=== PATIENT | male | born 1960 | race Caucasian/White ===

== ENCOUNTER 2019-01-22 15:45 | Inpatient (IN) ==
[~2019-01-22 15:45] MED LIST: THIAMINE 100 MG in NS 50 ML IV SCH
[2019-01-22] MEDS ORDERED: NS 1,000 ML IV ONE ×2 (16:14→18:14)
[2019-01-22] MEDS ORDERED: ROCEPHIN 1 GM in NS 50 ML IV ONE (16:15)
[2019-01-22 16:37] LABS: BASO# 0.09 X1000 (0.0-0.2); EOS# 0.22 X1000 (0.0-0.7); EOS% 2.5 % (0.0-10.0); HEMATOCRIT 44.6 % (42.0-52.0); HEMOGLOBIN 15.7 g/dL (14.0-18.0); IMM GRAN# 0.05 X1000 (0.0-0.04); IMM GRAN% 0.6 % (0.0-0.5); LYMPH# 1.91 X1000 (1.2-3.4); LYMPH% 21.5 % (20.5-51.1); MCH 33.4 PG (27-31); MCHC 35.2 g/dL (33-37); MCV 94.9 FL (81-99); MONO% 7.9 % (1.7-9.3); NEUT% 66.5 % (42.2-75.2); PLT 438 X1000 (130-400); RDW 13.4 % (11.5-14.5); WBC 8.87 X1000 (4.8-10.8)
--- NOTE | 2019-01-22 16:46 | PROVIDER DOCUMENTATION ---
HPI-Respiratory General - General Chief Complaint: Near Syncope Stated Complaint: SPITTING UP BLOOD Time Seen by Provider: 01/22/19 16:03 Allergies/Adverse Reactions: Patient Allergies Allergy/AdvReac Type Severity Reaction Status Date / Time No Known Allergies Allergy Verified 04/12/16 09:09 Home Medications: Home Medication List Medication Instructions Recorded Confirmed Last Taken Type Acetaminophen/Diphenhydramine 1 each PO Q6-8H PRN PRN #30 tablet 04/12/16 Unknown Rx [Percogesic 325-12.5 mg Tablet] Sulfamethoxazole/Trimethoprim 1 each PO BID #10 tablet 04/12/16 Unknown Rx [Bactrim Ds Tablet] - History of Present Illness-Resp Nature of Presenting Problem: patient is poor historian: 58 y.o. male report cough associated with blood started yesterday, sob for longtime, denies chest pain. he said he has terminal illness not sure what. denies abdominal pain. report alcohol daily. denies smoking or drug use. Hx of GI bleed per record review and patient confirm. Review of Systems - Adult - REVIEW OF SYSTEMS - ADULT Constitutional: reports: no symptoms reported Eyes: reports: no symptoms reported Cardiovascular: reports: see HPI Respiratory: reports: see HPI Gastrointestinal: reports: no symptoms reported Genitourinary: reports: no symptoms reported Musculoskeletal: reports: no symptoms reported Past History - Adult - PAST MEDICAL HISTORY-ADULT Review of Records: reports: Old Records Reviewed, Nursing Assessment Review Major Childhood Illnesses: reports: denies history Cardiovascular: reports: denies history Respiratory: reports: lung disease Gastrointestinal: reports: GERD, GI bleed, other (ischemic bowel induced by foreign body ) Genitourinary: reports: denies history Musculoskeletal: reports: denies history Neurological: reports: denies history Endocrine/Immune: reports: denies history Other Conditions: reports: denies history - PRIOR SURGERIES/PROCEDURES Surgical/Procedure History: reports: colonoscopy, tonsillectomy, orthopedic (extremity) (TKA) - IMMUNIZATION STATUS Childhood Immunizations: See Nurse Assessment Flu Vaccine: See Nurse Assessment - FAMILY HISTORY Family History: reviewed, not pertinent Physical Exam-General - CONSTITUTIONAL General Appearance: alert, mild distress - EYES Eyes: PERRL/EOMI - HEAD, EARS, NOSE, MOUTH & THROAT HENMT: normocephalic/atraumatic, moist mucous membranes - NECK Neck: non-tender, full range of motion, supple - RESPIRATORY Respiratory: lungs clear, accessory muscle use, other (Tachypnea). negative: crackles, rales, rhonchi - CARDIOVASCULAR Cardiovascular: normal peripheral pulses, regular rate, rhythm, no edema - GASTROINTESTINAL (ABDOMEN) Abdominal Exam: normal bowel sounds, non tender, soft - NEUROLOGIC Neurologic: grossly normal Progress - PLAN OF CARE/RESULTS Progress/Plan/Lab Results: Vital Signs - 8 hr 01/22/19 17:16 01/22/19 17:31 01/22/19 18:16 Pulse Rate 109 H 101 H 110 H Respiratory Rate 20 23 29 H Blood Pressure 142/88 137/80 141/84 O2 Sat by Pulse Oximetry 93 L 93 L 86 L 01/22/19 18:17 01/22/19 18:31 01/22/19 18:46 Pulse Rate 109 H 104 H 110 H Respiratory Rate 16 24 24 Blood Pressure 144/84 147/88 O2 Sat by Pulse Oximetry 93 L 93 L 93 L 01/22/19 19:01 01/22/19 19:31 01/22/19 19:46 Pulse Rate 108 H 106 H 107 H Respiratory Rate 21 26 H 20 Blood Pressure 142/88 141/112 136/87 O2 Sat by Pulse Oximetry 93 L 93 L 91 L 01/22/19 19:50 01/22/19 20:00 01/22/19 20:01 Pulse Rate 105 H 106 H 104 H Respiratory Rate 23 28 H 28 H Blood Pressure 140/96 O2 Sat by Pulse Oximetry 92 L 92 L 92 L 01/22/19 20:10 01/22/19 20:16 01/22/19 20:20 Pulse Rate 106 H 106 H 108 H Respiratory Rate 22 24 24 Blood Pressure 141/94 O2 Sat by Pulse Oximetry 91 L 93 L 91 L 01/22/19 20:30 01/22/19 20:32 01/22/19 20:40 Pulse Rate 106 H 107 H 111 H Respiratory Rate 21 21 22 Blood Pressure 145/94 O2 Sat by Pulse Oximetry 90 L 90 L 90 L 01/22/19 20:46 01/22/19 20:50 01/22/19 21:00 Pulse Rate 108 H 108 H 108 H Respiratory Rate 29 H 27 H 26 H Blood Pressure 139/84 O2 Sat by Pulse Oximetry 92 L 90 L 91 L 01/22/19 21:01 01/22/19 21:10 01/22/19 21:16 Pulse Rate 108 H 103 H 104 H Respiratory Rate 29 H 27 H 27 H Blood Pressure 141/88 149/89 O2 Sat by Pulse Oximetry 90 L 92 L 91 L 01/22/19 21:20 01/22/19 21:30 01/22/19 21:31 Pulse Rate 108 H 106 H 103 H Respiratory Rate 27 H 27 H 21 Blood Pressure 140/92 O2 Sat by Pulse Oximetry 90 L 91 L 92 L 01/22/19 21:40 01/22/19 21:46 01/22/19 21:50 Pulse Rate 106 H 102 H 109 H Respiratory Rate 27 H 26 H 26 H Blood Pressure 143/95 O2 Sat by Pulse Oximetry 90 L 92 L 91 L 01/22/19 22:00 01/22/19 22:01 01/22/19 22:02 Pulse Rate 109 H 108 H 108 H Respiratory Rate 24 28 H 28 H Blood Pressure 149/91 O2 Sat by Pulse Oximetry 90 L 91 L 91 L 01/22/19 22:10 01/22/19 22:16 01/22/19 22:20 Pulse Rate 88 105 H 105 H Respiratory Rate 16 23 26 H Blood Pressure 148/89 O2 Sat by Pulse Oximetry 90 L 91 L 91 L 01/22/19 22:30 01/22/19 22:31 01/22/19 22:40 Pulse Rate 107 H 108 H 105 H Respiratory Rate 33 H 29 H 22 Blood Pressure 149/90 O2 Sat by Pulse Oximetry 90 L 91 L 90 L Laboratory Results - last 24 hr 01/22/19 01/22/19 01/22/19 16:13 16:13 16:13 WBC 8.87 RBC 4.70 Hgb 15.7 Hct 44.6 MCV 94.9 MCH 33.4 H MCHC 35.2 RDW Std Deviation 13.4 Plt Count 438 H MPV 9.0 Immature Gran % (Auto) 0.6 H Neut % (Auto) 66.5 Lymph % (Auto) 21.5 Tate % (Auto) 7.9 Eos % (Auto) 2.5 Baso % (Auto) 1.0 H Immature Gran # (Auto) 0.05 H Neut # (Auto) 5.90 Lymph # (Auto) 1.91 Tate # (Auto) 0.70 H Eos # (Auto) 0.22 Baso # (Auto) 0.09 PT INR PTT (Actin FS) D-Dimer, Quantitative 1.61 H Sodium 143 Potassium 4.2 Chloride 101 Carbon Dioxide 24 L Anion Gap 18 BUN 6 L Creatinine 0.7 Estimated GFR/1.73 m2 > 60 BUN/Creatinine Ratio 9 Glucose 98 Calculated Osmolality 283 Calcium 9.3 Magnesium Total Bilirubin 0.78 AST 52 H ALT 20 Alkaline Phosphatase 173 H Troponin T Total Protein 8.3 Albumin 4.4 Globulin 3.9 Albumin/Globulin Ratio 1.1 Plasma Lactate Urine Source Urine Color Urine Turbidity Urine pH Ur Specific [place] Urine Protein Ur Glucose (Stick) Ur Ketones (Stick) Urine Blood Urine Nitrite Urine Bilirubin Urobilinogen Dipstick Urine Leukocytes Urine WBC (Auto) Urine RBC (Auto) U Epithel Cells (Auto) Urine Bacteria (Auto) 01/22/19 01/22/19 01/22/19 16:13 16:13 16:13 WBC RBC Hgb Hct MCV MCH MCHC RDW Std Deviation Plt Count MPV Immature Gran % (Auto) Neut % (Auto) Lymph % (Auto) Tate % (Auto) Eos % (Auto) Baso % (Auto) Immature Gran # (Auto) Neut # (Auto) Lymph # (Auto) Tate # (Auto) Eos # (Auto) Baso # (Auto) PT 13.7 INR 0.97 PTT (Actin FS) 31.5 D-Dimer, Quantitative Sodium Potassium Chloride Carbon Dioxide Anion Gap BUN Creatinine Estimated GFR/1.73 m2 BUN/Creatinine Ratio Glucose Calculated Osmolality Calcium Magnesium 1.3 L Total Bilirubin AST ALT Alkaline Phosphatase Troponin T < 0.010 Total Protein Albumin Globulin Albumin/Globulin Ratio Plasma Lactate Urine Source Urine Color Urine Turbidity Urine pH Ur Specific [place] Urine Protein Ur Glucose (Stick) Ur Ketones (Stick) Urine Blood Urine Nitrite Urine Bilirubin Urobilinogen Dipstick Urine Leukocytes Urine WBC (Auto) Urine RBC (Auto) U Epithel Cells (Auto) Urine Bacteria (Auto) 01/22/19 01/22/19 01/22/19 16:32 19:24 19:28 WBC RBC Hgb Hct MCV MCH MCHC RDW Std Deviation Plt Count MPV Immature Gran % (Auto) Neut % (Auto) Lymph % (Auto) Tate % (Auto) Eos % (Auto) Baso % (Auto) Immature Gran # (Auto) Neut # (Auto) Lymph # (Auto) Tate # (Auto) Eos # (Auto) Baso # (Auto) PT INR PTT (Actin FS) D-Dimer, Quantitative Sodium Potassium Chloride Carbon Dioxide Anion Gap BUN Creatinine Estimated GFR/1.73 m2 BUN/Creatinine Ratio Glucose Calculated Osmolality Calcium Magnesium Total Bilirubin AST ALT Alkaline Phosphatase Troponin T Total Protein Albumin Globulin Albumin/Globulin Ratio Plasma Lactate 3.7 H 3.3 H Urine Source CLEAN CATCH Urine Color YELLOW Urine Turbidity CLEAR Urine pH 6.5 Ur Specific [place] 1.039 Urine Protein NEGATIVE Ur Glucose (Stick) NEGATIVE Ur Ketones (Stick) NEGATIVE Urine Blood NEGATIVE Urine Nitrite NEGATIVE Urine Bilirubin NEGATIVE Urobilinogen Dipstick NORMAL Urine Leukocytes NEGATIVE Urine WBC (Auto) <10 Urine RBC (Auto) <10 U Epithel Cells (Auto) <10 Urine Bacteria (Auto) NEGATIVE 01/22/19 22:30 WBC RBC Hgb Hct MCV MCH MCHC RDW Std Deviation Plt Count MPV Immature Gran % (Auto) Neut % (Auto) Lymph % (Auto) Tate % (Auto) Eos % (Auto) Baso % (Auto) Immature Gran # (Auto) Neut # (Auto) Lymph # (Auto) Tate # (Auto) Eos # (Auto) Baso # (Auto) PT INR PTT (Actin FS) D-Dimer, Quantitative Sodium Potassium Chloride Carbon Dioxide Anion Gap BUN Creatinine Estimated GFR/1.73 m2 BUN/Creatinine Ratio Glucose Calculated Osmolality Calcium Magnesium Total Bilirubin AST ALT Alkaline Phosphatase Troponin T Total Protein Albumin Globulin Albumin/Globulin Ratio Plasma Lactate 2.3 H Urine Source Urine Color Urine Turbidity Urine pH Ur Specific [place] Urine Protein Ur Glucose (Stick) Ur Ketones (Stick) Urine Blood Urine Nitrite Urine Bilirubin Urobilinogen Dipstick Urine Leukocytes Urine WBC (Auto) Urine RBC (Auto) U Epithel Cells (Auto) Urine Bacteria (Auto) Orders Category Date Time Status Admit [facility] Routine AdmDCTranf 01/22/19 22:07 Active Activity - Up with Assistance ORDERED Care 01/22/19 22:07 Active Cardiac Monitoring DIRECTED Care 01/22/19 18:32 Completed Currently Rec Mechanical Proph [QM] ROUTINE Care 01/22/19 22:07 Active Intake and Output-Strict ORDERED Care 01/22/19 22:07 Active Vital Signs Order Q 8-HR ASSESS Care 01/22/19 22:07 Active Z-Document. for Tele Applied ORDERED Care 01/22/19 22:07 Completed Regular Diet Diet 01/22/19 22:07 Active CTA [CT ANGIOGRM PULMONARY ARTERIES] [CT] Stat Exams 01/22/19 16:15 Completed BASIC METABOLIC PANEL [CHEM] Routine Lab 01/23/19 06:00 Ordered BLOOD CULTURE [BLDCUL] Stat Lab 01/22/19 16:25 Results CBC WITH DIFF [HEME] Routine Lab 01/23/19 06:00 Ordered CBC WITH ELECTRONIC DIFF [HEME] Stat Lab 01/22/19 16:13 Completed COMPREHENSIVE METABOLIC PANEL [CHEM] Stat Lab 01/22/19 16:13 Completed D-DIMER [COAG] Stat Lab 01/22/19 16:13 Completed LACTATE, PLASMA [CHEM] Lab 01/22/19 19:24 Completed LACTATE, PLASMA [CHEM] Lab 01/22/19 22:30 Completed LACTATE, PLASMA [CHEM] Stat Lab 01/22/19 16:32 Completed MAGNESIUM [CHEM] Stat Lab 01/22/19 16:13 Completed PHOSPHORUS [CHEM] Routine Lab 01/23/19 06:00 Ordered PROTIME WITH INR [COAG] Stat Lab 01/22/19 16:13 Completed PTT [COAG] Stat Lab 01/22/19 16:13 Completed TROPONIN T Stat Lab 01/22/19 16:13 Completed TSH Routine Lab 01/23/19 06:00 Ordered URINALYSIS W/POSS RFLX CULT [URINALYSIS] Stat Lab 01/22/19 19:28 Completed 0.9% Sodium Chloride Inj [Ns] 1,000 ml Med 01/22/19 18:14 Discontinued .ROUTE As directed 0.9% Sodium Chloride Inj [Ns] 1,000 ml Med 01/22/19 22:07 Active IV 150 mls/hr 0.9% Sodium Chloride Inj [Ns] 1,000 ml Med 01/22/19 16:14 Discontinued IV 999 mls/hr 0.9% Sodium Chloride Inj [Ns] 1,000 ml Med 01/22/19 18:14 Discontinued IV 999 mls/hr Acetaminophen [Tylenol] Med 01/22/19 22:07 Active 650 mg PO Q6H PRN PRN Albuterol 2.5MG/Ipratrop 0.5MG [Duoneb (A & A)] Med 01/22/19 22:07 Active 3 ml INH RTQ6H Arformoterol Neb [Brovana Neb] Med 01/22/19 22:07 Active 15 microgm INH RTBID Azithromycin 500 mg/Ns [Zithromax 500 mg/Ns] Med 01/22/19 22:07 Active 500 mg in 250 ml IV Q24H Benzonatate [Tessalon] Med 01/23/19 09:00 Active 200 mg PO TID CefTRIAXONE [Rocephin] 1 gm Med 01/22/19 16:15 Discontinued 0.9% Sodium Chloride Inj [Ns] 50 ml IV NOW CefTRIAXONE [Rocephin] 1 gm Med 01/23/19 16:00 Active 0.9% Sodium Chloride Inj [Ns] 50 ml IV Q24H Chlordiazepoxide [Librium] Med 01/23/19 09:00 Active 25 mg PO TID Lorazepam [Ativan] Med 01/22/19 22:07 Active 1 mg IV Q2H PRN PRN Methylprednisolone Sod Succ [Solu-Medrol] Med 01/22/19 22:07 Active 40 mg IV Q8H Ondansetron [Zofran] Med 01/22/19 22:07 Active 4 mg IV Q4H PRN PRN Pantoprazole [Protonix] Med 01/22/19 22:07 Active 40 mg IV Q24H Sodium Chloride 0.9% Med 01/22/19 22:07 Discontinued 10 ml INJ NOW ONE Thiamine 100 mg Med 01/22/19 09:00 Active 0.9% Sodium Chloride Inj [Ns] 50 ml IV DAILY Thiamine 100 mg Med 01/22/19 23:00 Discontinued 0.9% Sodium Chloride Inj [Ns] 50 ml IV NOW Aerosol Treatments Routine Oth 01/22/19 22:07 Completed Aerosol Treatments Stat Oth 01/22/19 22:07 Completed Oxygen Device Stat Oth 01/22/19 18:32 Completed Telemetry [OM.EQ] Routine Oth 01/22/19 22:07 Active EKG [EKG] Stat Ther 01/22/19 16:17 Ordered Echo Spec/Color Dop W/O Contra Routine Ther 01/23/19 11:00 Ordered Transfer/Admit Order [TRANSFER] Routine Transfer 01/22/19 19:38 Completed Result Diagrams: 01/22/19 16:13 01/22/19 16:13 - EKG 1 Time of EKG reading by physician:: 16:00 EKG Read and Signed by:: Barbara Busch EKG Interpretation (*Must complete 3 of following elements*): Abnormal Rate: 104 Rhythm: sinus tachycardia [place]: normal [place] Interval: normal Comments: otherwise normal ECG - CONSULTS/PCP/HOSPITALIST Notification #1 *Consult/PCP/Hospitalist*: Dr. Turcios Time Discussed: 19:18 Consult Disposition: Admit (Hx, PE and patient care discussed. accepted.) Departure - Departure Date of Disposition Decision: 01/22/19 Time of Disposition Decision: 19:17 DIAGNOSIS: Hemoptysis, Respiratory distress Sepsis Qualifiers: Sepsis type: sepsis due to unspecified organism Qualified Code(s): A41.9 - Sepsis, unspecified organism Disposition: ADMITTED INPATIENT Certified Medical Emergency: Emergent Condition: Stable - Critical Care Note This patient required my direct & personal management of CC.: No Attestation - Physician/ CHARLETTE Attestation Patient care was provided by Advanced Practice Provider:: No The physician spent face to face time with patient:: Yes Advanced Practice Provider documentation review:: Supervising physician onsite and consulted in the evaluation and care of this patient. The physician did have a face to face encounter with the patient.
[2019-01-22 17:02] LABS: AGAP 18; ALB/GLOB RATIO 1.1; ALBUMIN 4.4 g/dL (3.5-5.0); ALKALINE PHOSPHATASE 173 U/L (32-122); BUN 6 mg/dL (8-22); CALCIUM 9.3 mg/dL (8.8-10.2); CHLORIDE 101 mmol/L (98-107); COSMO 283; CREATININE 0.7 mg/dL (0.7-1.2); ESTIMATED GFR > 60; GLUCOSE 98 mg/dL (70-104); GOT 52 U/L (10-34); GPT 20 U/L (10-44); POTASSIUM 4.2 mmol/L (3.5-5.1); SODIUM 143 mmol/L (136-145); TCO2 24 mmol/L (25-35); TOTAL BILIRUBIN 0.78 mg/dL (0.20-1.00); TOTAL PROTEIN 8.3 g/dL (6.3-8.3)
[2019-01-22] MEDS ORDERED: NS 1,000 ML ONE (18:14)
--- NOTE | 2019-01-22 18:26 | Diag Imaging Result Doc PS360 ---
EXAM: CT ANGIOGRM PULMONARY ARTERIES HISTORY: dyspnea, tachycardia, tachypnea, hemoptysis TECHNIQUE: CT chest with intravenous contrast. Pulmonary arterial protocol with MIP images. COMPARISON: 09/28/2015 FINDINGS: There is severe emphysema. There are prominent bilateral increased interstitial markings consistent with fibrosis. There are enlarged mediastinal nodes with mildly prominent hilar lymph nodes. No pleural effusions. No cardiomegaly. No thoracic aortic aneurysm or dissection. Normal opacification of the pulmonary arteries and their branches. Possible 1.5 cm right apical nodule. IMPRESSION: 1.No pulmonary emboli 2.Interval increase in the size of the large mediastinal lymph nodes 3.Severe emphysema 4.Worsening fibrosis. Cannot exclude underlying infiltrates. 5.There is scarring in the right apex. The nodular appearance likely represents scarring as well. This exam was performed using automated exposure control, adjustment of mA or kV according to patient size, and/or use of iterative reconstruction technique. Electronically signed by Juan Alberto Antonio 01/22/2019 6:23 PM
[2019-01-22 18:43] LABS: INR 0.97; PROTIME 13.7 Seconds (11.0-16.0)
[2019-01-22 18:44] LABS: PTT 31.5 Seconds (22.3-41.8)
[2019-01-22 19:50] LABS: URINE SOURCE CLEAN CATCH
[2019-01-22 19:56] LABS: BILIRUBIN URINE NEGATIVE (NEGATIVE); BLOOD URINE NEGATIVE (NEGATIVE); COLOR YELLOW; GLUCOSE URINE NEGATIVE (NEGATIVE); KETONE URINE NEGATIVE (NEGATIVE); LEUKOCYTES URINE NEGATIVE (NEGATIVE); NITRITE URINE NEGATIVE (NEGATIVE); PH URINE 6.5; PROTEIN URINE NEGATIVE (NEGATIVE); SP GRAVITY URINE 1.039; TURBIDITY URINE CLEAR (CLEAR); UROBILINOGEN URINE NORMAL (NORMAL)
[2019-01-22 20:06] LABS: UR EPITHELIAL CELLS <10 /HPF (<10); URINE BACTERIA NEGATIVE /HPF; URINE RBC <10 /HPF (<10); URINE WBC <10 /HPF (<10)
--- NOTE | 2019-01-22 20:56 | HISTORY AND PHYSICAL ---
PRIMARY CARE PHYSICIAN: None. REASON FOR ADMISSION: Two-day history of acute on chronic shortness of breath and chest pain. HISTORY OF PRESENT ILLNESS: Mr. Dina Appiah is a 58-year-old male with a past medical history of COPD. He also has a history of alcohol abuse and chronic daily headache. He states he has a longstanding history of chronic dyspnea with exertion and says that over the last 2 days the dyspnea has gotten profoundly worse. Before, he could go 50 feet before he got short of breath, but now he says that he can barely go 5 feet without becoming profoundly short of breath. He admits to having a cough that is productive that is tinged with blood. Denies any night sweats or weight loss and states that he has had occasional chills but no fever. He denies any orthopnea or PND. He says he has been having some retrosternal chest pain radiating to the precordium, which is pleuritic in nature. It is intermittent with no specific aggravating or relieving factors otherwise. No leg swelling. No abdominal swelling. No extremity redness or pain. Sometimes when he ambulates, he feels as if he is going to pass out, and he feels his heart racing. He denies any GI or complaints. No focal neurological complaints, although he says he has a dull constant headache, and he takes multiple Goody powders a day for this. REVIEW OF SYSTEMS: No polyuria or polydipsia. No heat intolerance. No rash. No arthralgias otherwise. A 12-system review was done, with positive findings per HPI. ALLERGIES: None. PAST SURGICAL HISTORY: He had a tonsillectomy, left knee surgery, and sinus surgery . MEDICATIONS: None. FAMILY HISTORY: Notable for COPD and diabetes but no heart disease. SOCIAL HISTORY: He drinks about half a bottle of vodka and does admit that occasionally he does get shakes but never had any seizures. He stopped smoking 15 years ago. No recreational drug use. Lives with his son. LAB WORK: A CT angiogram was done because of an elevated D-dimer, tachypnea, and hemoptysis, and it showed no pulmonary emboli. Interval increase in size of large mediastinal lymph nodes, severe emphysema, and worsening fibrosis, but cannot exclude infiltrates. White count 8000, hemoglobin and hematocrit 15 and 44, platelets 438. Normal differential. AST 51, ALT 20, alkaline phosphatase 173. Troponin negative. Lactate is 3.7. PT and PTT are normal. D-dimer 1.61. PHYSICAL EXAMINATION: VITAL SIGNS: Heart rate is 106, temperature 97.8, respirations 26, blood pressure 141/112, 93% on room air. GENERAL: He is a middle-aged man who appears slightly older than stated age. He is alert and oriented to person, place and time with a normal mood and affect. HEENT: Head is normocephalic, atraumatic. Eyes PERRL, EOMI. He is anicteric, not pale. ENT: Oropharynx exam is grossly normal. NECK: Supple. LYMPHATICS: No cervical or supraclavicular lymph nodes. No thyromegaly. No bruits. No JVD. CHEST: The patient has bibasilar Velcro crepitations. No wheezes but decreased air entry in both lung williamson. CARDIOVASCULAR: First and second heart sounds heard. No gallops, murmurs or rubs. Rhythm is regular. ABDOMEN: Full and soft. No tenderness or megaly. Bowel sounds normal. RECTAL EXAM: Not done at this time. EXTREMITIES: The patient has good distal pulse volumes which are symmetrical and regular. No edema, clubbing or peripheral cyanosis. NEUROLOGIC: No focal deficits. SKIN: Intact with no breakdown, lesions or erythema. MUSCULOSKELETAL: Grossly normal. ASSESSMENT: 1. Chronic obstructive pulmonary disease exacerbation. 2. Probably pneumonia with probable sepsis. 3. Alcohol abuse. 4. Mediastinal lymphadenopathy, query significance. PLAN: 1. The patient will be started on steroids and short- and long-acting bronchodilators to address chronic obstructive pulmonary disease exacerbation. 2. The patient will also be empirically treated with Rocephin and Zithromax for presumed community- acquired pneumonia. 3. The patient will be started on low-dose Librium and Ativan for possible alcohol withdrawal. Will start the patient on IV thiamine to prevent Wernicke encephalopathy. Check electrolytes in the morning to include phosphorus and magnesium and correct as deemed necessary. 4. IV Protonix to prevent possible peptic ulcer disease due to the fact that the patient consumes lots of Goody powders, which be responsible for the fact that he has some degree of hemoptysis when he coughs. 5. I personally would not be surprised if the patient's lactate is elevated, not because he has sepsis, but it is possible that he has chronic hypoxia from his underlying pulmonary fibrosis and COPD, and this could probably shift his metabolism more to glycolysis as opposed to via the Collin cycle. cc: Chris Turcios MD
[2019-01-22] MEDS: BROVANA NEB INH SCH (22:07)
[2019-01-22] MEDS ORDERED: SODIUM CHLORIDE 0.9% INJ ONE (22:07)
[2019-01-22] MEDS: DUONEB (A & A) INH SCH (22:07)
[2019-01-22] MEDS: NS 1,000 ML IV SCH (22:35)
[2019-01-22] MEDS: SOLU-MEDROL IV SCH (22:41)
[2019-01-22] MEDS: PROTONIX IV SCH (22:50)
[2019-01-22] MEDS: ZITHROMAX 500 MG/NS 500 MG/250 ML IVPB IV SCH (22:52)
[2019-01-22] MEDS ORDERED: THIAMINE 100 MG in NS 50 ML IV ONE (23:00)
[2019-01-23] MEDS: ZOFRAN IV PRN (00:07)
[2019-01-23] MEDS: NS 1,000 ML IV SCH (05:25)
[2019-01-23] MEDS: SOLU-MEDROL IV SCH ×3 (05:25→21:47)
[2019-01-23] MEDS: DUONEB (A & A) INH SCH ×4 (06:22→21:10)
[2019-01-23 06:35] LABS: BASO# 0.02 X1000 (0.0-0.2); BASO% 0.3 % (0.0-0.8); HEMATOCRIT 40.5 % (42.0-52.0); HEMOGLOBIN 14.1 g/dL (14.0-18.0); IMM GRAN# 0.03 X1000 (0.0-0.04); IMM GRAN% 0.4 % (0.0-0.5); LYMPH# 0.44 X1000 (1.2-3.4); LYMPH% 6.3 % (20.5-51.1); MCH 33.3 PG (27-31); MCHC 34.8 g/dL (33-37); MCV 95.5 FL (81-99); MONO# 0.06 X1000 (0.11-0.59); MONO% 0.9 % (1.7-9.3); MPV 9.5 FL (7.4-10.4); NEUT# 6.45 X1000 (1.4-6.5); NEUT% 92.1 % (42.2-75.2); PLT 330 X1000 (130-400); RBC 4.24 XMIL (4.7-6.1); RDW 12.8 % (11.5-14.5)
[2019-01-23 06:52] LABS: AGAP 15; BUN 7 mg/dL (8-22); CHLORIDE 102 mmol/L (98-107); COSMO 279; CREATININE 0.6 mg/dL (0.7-1.2); ESTIMATED GFR > 60; GLUCOSE 188 mg/dL (70-104); POTASSIUM 3.7 mmol/L (3.5-5.1); SODIUM 138 mmol/L (136-145); TCO2 21 mmol/L (25-35)
[2019-01-23 07:13] LABS: BANDS 1 % (0-1); LYMPHS 3 % (21-51); SEGS 96 % (42-75)
--- NOTE | 2019-01-23 07:35 | EKG Report ---
Test Performed on : 01/22/2019 4:00:08 PM Test Reason : CP Blood Pressure : / mmHG Vent. Rate : 104 BPM Atrial Rate : 104 BPM P-R Int : 192 ms QRS Dur : 076 ms QT Int : 346 ms P-R-T Axes : 043 042 027 degrees QTc Int : 454 ms Sinus tachycardia. Otherwise normal ECG When compared with ECG of 28-OCT-2014 06:15, No significant change was found Unconfirmed Result
[2019-01-23] MEDS: TESSALON PO SCH ×3 (08:54→21:47)
[2019-01-23] MEDS: LIBRIUM PO SCH ×3 (08:54→21:47)
[2019-01-23] MEDS: BROVANA NEB INH SCH ×2 (09:50→21:10)
[2019-01-23] MEDS: ROCEPHIN 1 GM in NS 50 ML IV SCH ×2 (14:09→15:17)
[2019-01-23] MEDS ORDERED: SODIUM CHLORIDE 0.9% 10 ML ONE (14:50)
--- NOTE | 2019-01-23 17:18 | ECHO REPORT ---
ORDER DATE: 01/23/2019 INTERPRETING PHYSICIAN: Cesar Renteria MD. INDICATION: A 58-year-old patient with chest pain, alcohol abuse, possible pneumonia. M-MODE MEASUREMENTS: Left ventricle end diastole: 4.9 cm. Left ventricle end systole: 2.1 cm. Posterior wall: 0.8 cm. Interventricular septum: 0.8 cm. Left atrium: 4.1 cm. Aortic root: 3.5 cm. SUMMARY OF 2-DIMENSIONAL IMAGIN. The left ventricular function is normal. Ejection fraction is estimated at 65%. There is no wall motion abnormality noted. The study is difficult. 2. The right-sided chambers appear to be mildly enlarged. 3. The tricuspid valve appears to be grossly normal with trace of regurgitation. Pulmonary pressure is estimated at 54 mmHg. 4. The mitral valve looks grossly normal. Color flow mapping indicates a mild degree of regurgitation. Pulsed wave Doppler of mitral inflow showed reversal of the E and A ratio, ratio of 0.63. The tissue Doppler of septal and lateral mitral annulus is suboptimally displayed. The E' velocity is about 6 cm, suggesting that there may be borderline impaired left ventricular relaxation. 5. The aortic valve has 3 cusps. They open normally. Color flow mapping unremarkable. 6. The pulmonic valve is grossly unremarkable. There is no evidence of pericardial effusion, masses, nor thrombus. Clinical correlation is recommended. cc: MD Chris Escobar MD
--- NOTE | 2019-01-23 18:17 | PROGRESS NOTE ---
DATE: 01/23/2019 INTERVAL HISTORY: Mr. Appiah was admitted for acute COPD exacerbation. He did not have any other acute events. SUBJECTIVE: He continues to have hemoptysis and shortness of breath. He tells me that he has not been using any home oxygen, that he was supposed to since he does not have money to buy it. He states that he quit smoking 10 years ago; however, it is suspicious. He does not provide good answers about his alcohol history, though. VITALS: Currently, vitals detect temperature of 97.9, pulse 95, respiratory 22, blood pressure 132/75. Saturating 93% on 3 L nasal cannula. PHYSICAL EXAMINATION: General: He does not appear in any acute distress. There is a tray with hemoptysis which he continues to expectorate and sputum culture has been ordered. The patient denies any chest pain. Echocardiogram has just been performed. The result is pending. Lungs: Air entry bilaterally equal. No wheeze or rhonchi. Diffuse crackles bilaterally. Cardiovascular: S1, S2 normal. Tachycardic. No murmur, rub or gallop. Abdomen: Soft, nontender. No lower extremity edema. LABS: Suggestive off no leukocytosis. Normal hemoglobin, hematocrit and platelet count. Normal kidney function. Hypophosphatemia and hypocalcemia. ASSESSMENT AND PLAN: 1. Acute chronic obstructive pulmonary disease exacerbation. 2. Acute on chronic hypoxic respiratory failure with noncompliance with home oxygen. 3. Hemoptysis. 4. About 60 pack-year smoking history, which he claims to have quit 10 years ago. 5. Enlarging mediastinal lymphadenopathy with a right apical lung mass suspicious for cancer. 6. Alcohol abuse. PLAN: 1. Continue albuterol ipratropium nebulization with intravenous methylprednisolone with intravenous ceftriaxone and intravenous azithromycin and follow up with blood culture and sputum culture results for acute COPD exacerbation. 2. Continue thiamine, chlordiazepoxide and as needed lorazepam for history of alcohol abuse to prevent alcohol withdrawal. 3. I will consult Pulmonology tomorrow since he does have about 1.2 cm right apical lung mass and very large mediastinal lymph node which in the setting of hemoptysis and longstanding smoking history is suspicious for lung cancer. I did not have any previous CT image, however there is a previous CT report in 2016 which did document about 8 mm area in right apical lobe. ADDENDUM: I did not get a chance to discuss the findings of a lung mass and lymph node to the patient since I did a personal review of images very late in the day. cc: Wes Rogel MD MTDMandi
[2019-01-23] MEDS: ZITHROMAX 500 MG/NS 500 MG/250 ML IVPB IV SCH (21:46)
[2019-01-23] MEDS: PROTONIX IV SCH (21:46)
[2019-01-23] MEDS: TYLENOL PO PRN (22:58)
[2019-01-23] MEDS: THIAMINE 100 MG in NS 50 ML IV SCH (23:56)
[2019-01-24] MEDS: DUONEB (A & A) INH SCH ×4 (03:15→21:20)
[2019-01-24] MEDS: SOLU-MEDROL IV SCH ×3 (05:30→21:22)
[2019-01-24] MEDS: ZOFRAN IV PRN (07:45)
[2019-01-24] MEDS: TYLENOL PO PRN ×3 (07:45→21:21)
[2019-01-24] MEDS: TESSALON PO SCH ×3 (08:36→18:29)
[2019-01-24] MEDS: K-PHOS PO SCH ×3 (08:36→18:28)
[2019-01-24] MEDS: TUMS PO SCH ×3 (08:38→18:30)
[2019-01-24] MEDS: LIBRIUM PO SCH ×3 (08:45→18:27)
[2019-01-24] MEDS ORDERED: BROVANA NEB ONE (09:28)
[2019-01-24] MEDS: BROVANA NEB INH SCH ×2 (09:29→21:20)
[2019-01-24] MEDS ORDERED: SODIUM CHLORIDE 0.9% 10 ML ONE (16:33)
--- NOTE | 2019-01-24 17:23 | PROGRESS NOTE ---
DATE: 01/24/2019 SUBJECTIVE: Today Mr. Appiah referred to be doing a little better. He still has significant shortness of breath. OBJECTIVE: Vitals: Blood pressure is 120/60, pulse of 106, respirations 20, temperature 97.2 degrees. The patient was saturating about 94% on nasal cannula. On general exam, Mr. Appiah is a 58-year-old male. He was in bed. Seems to be in mild respiratory distress. Mucosa is pink and moist. Anicteric. Acyanotic. Neck is supple. Chest: Air entry is bilaterally reduced. There is prolonged expiratory phase of respiration. There are also some fine end- inspiratory crackles bilateral. Cardiovascular: Regular rate and rhythm. No murmurs, no rubs, no gallops. Gastrointestinal: Abdomen is soft. Extremities: No pedal edema. There is positive clubbing. Central Nervous System: Patient is awake, alert, and oriented. DIAGNOSTIC STUDIES: None for today. The patient's lactate plasma is 3.9. Echocardiogram shows an ejection fraction of 65%. ASSESSMENT: 1. Acute on chronic hypoxemic respiratory failure. 2. Severe chronic obstructive pulmonary disease with exacerbation. We will continue with the current standard of care, including steroids, antibiotics, and bronchodilation therapy. 3. Enlarged mediastinal lymphadenopathy in patient with a [id number] history, chronic obstructive pulmonary disease associated with clubbing. All concerning for malignancy. We will wait for Pulmonary Medicine to evaluate. 4. Alcohol abuse. Patient has been counseled. He is currently on protocol for possible withdrawal. 5. Osteoarthritis. We will add Celebrex to his medications. cc: Harrison Francois MD [facility]
[2019-01-24] MEDS: ROCEPHIN 1 GM in NS 50 ML IV SCH (18:31)
[2019-01-24] MEDS: CELEBREX PO SCH (18:45)
[2019-01-24] MEDS: ZITHROMAX 500 MG/NS 500 MG/250 ML IVPB IV SCH (21:20)
[2019-01-24] MEDS: PROTONIX IV SCH (21:22)
--- NOTE | 2019-01-24 23:18 | CONSULTATION ---
DATE OF CONSULTATION: 01/24/2019 REQUESTING PHYSICIAN: Dr. Wes Rogel. REASON FOR CONSULTATION: Right apical nodule, hemoptysis. HISTORY OF PRESENT ILLNESS: This is a 58-year-old male with a medical history of COPD, degenerative joint disease, chronic pain, chronic headache, and alcohol abuse. He presented to the ER on 01/22/2019 with hemoptysis. Initial workup in the ER revealed COPD exacerbation, probable pneumonia with probable sepsis, and significant mediastinal lymphadenopathy. He has been admitted to the medical floor for further evaluation and management. At the time of my examination, patient is lying in bed comfortably with no acute distress noted. He coughs occasionally with simon sputum tinged with very little dark red blood. He reports shortness of breath over 2 to 3 years. He reports severe arthritis in several joints, and he has had surgery for his left knee due to arthritis. He reports he was prescribed with home oxygen 3 years ago but he cannot afford it. He has chest pain, productive cough, daily headache, but no nausea, fever, chills, headache, unintentional weight change, palpitation, bowel habit change, or urination change. PAST MEDICAL/SURGICAL HISTORY: 1. COPD. Required home oxygen but patient cannot afford it. 2. Degenerative joint disease. 3. Chronic pain. 4. Chronic headache. 5. Alcohol abuse. 6. Tonsillectomy. 7. Arthritis. 8. Left knee surgery. 9. Sinus surgery. SOCIAL HISTORY: He is a heavy former smoker, he quit smoking 15 years ago. He used to smoke 2 packs per day for 30 years. He drinks about half a bottle of vodka occasionally. He has no history of illicit drug use. FAMILY HISTORY: Father had COPD and from a blood clot. One of his brothers has COPD and blood clot. Mother of old age. He reports no family history of sarcoidosis. ALLERGIES: No known drug allergies. REVIEW OF SYSTEMS: A 10-point review of systems was conducted and the pertinent is listed within the HPI, otherwise noncontributory. PHYSICAL EXAMINATION: Vital Signs: Temperature 98.1 degrees, blood pressure 106/62, pulse 104, respiratory rate 20, oxygen saturation 91% on nasal cannula at 2 L. General: chronically ill appearing, malnourished; in no acute distress. Respiratory: even and unlabored; symmetrical excursion; auscultation reveals early inspiratory crackles bilaterally. Cardiovascular: regular rate and rhythm. Gastrointestinal: normoactive bowel sounds in all 4 quadrants; nontender, nondistended. Extremities: no pedal edema, no cyanosis, no clubbing. Neurologic: A/Ox3; speech fluent; follow commands. LAB DATA: No lab today. PERTINENT IMAGING DATA: CT angiogram, pulmonary arterials on 01/22/2019 revealed no pulmonary emboli. Interval increase in the size of the large mediastinal lymph nodes, severe emphysema, worsening fibrosis, cannot exclude underlying infiltrates. There is scarring in the right apex. The nodular appearance likely represents scarring as well. ASSESSMENT: This is a 58-year-old male with a medical history of chronic obstructive pulmonary disease, degenerative joint disease, chronic pain, chronic headache, alcohol abuse, and arthritis. He has been admitted to the medical floor with chronic obstructive pulmonary disease exacerbation, probable pneumonia with probable sepsis, alcohol abuse, and mediastinal lymphadenopathy. 1. Acute on chronic hypoxemic respiratory failure. 2. Possible 1.5 right apical nodule with lymphadenopathy. 3. Hemoptysis. very little dark red blood, but noticeable. 4. Chronic obstructive pulmonary disease exacerbation. PLAN: 1. Continue supplemental oxygen. 2. Continue antibiotics, steroid, and bronchodilators. 3. Follow up with blood culture and sputum culture. 4. Outpatient PET scan. 5. Continue GI and DVT prophylaxis. 6. Further recommendations pending hospital course. I discussed plan with patient. Patient showed understanding and agreement. All questions are answered. Thank you for the courtesy of this consult. Dictated by ZEINA Mead for Dalia Martinez MD cc: ZEINA Mead MD [facility]
[2019-01-25] MEDS: THIAMINE 100 MG in NS 50 ML IV SCH (00:19)
[2019-01-25] MEDS: DUONEB (A & A) INH SCH ×4 (03:20→21:46)
[2019-01-25] MEDS: SOLU-MEDROL IV SCH ×3 (07:52→21:20)
[2019-01-25] MEDS: TESSALON PO SCH ×3 (08:28→21:21)
[2019-01-25] MEDS: LIBRIUM PO SCH ×3 (08:28→21:21)
[2019-01-25] MEDS: TUMS PO SCH ×3 (08:28→21:21)
[2019-01-25] MEDS: CELEBREX PO SCH (08:28)
[2019-01-25] MEDS: K-PHOS PO SCH ×3 (08:28→21:22)
[2019-01-25] MEDS: TYLENOL PO PRN ×2 (08:30→21:21)
[2019-01-25 10:08] LABS: HEMATOCRIT 39.8 % (42.0-52.0); HEMOGLOBIN 13.4 g/dL (14.0-18.0); MCH 33.3 PG (27-31); MCHC 33.7 g/dL (33-37); MCV 98.8 FL (81-99); MPV 9.4 FL (7.4-10.4); RBC 4.03 XMIL (4.7-6.1); RDW 13.5 % (11.5-14.5); WBC 17.05 X1000 (4.8-10.8)
[2019-01-25 10:26] LABS: AGAP 10; BUN 12 mg/dL (8-22); CALCIUM 8.3 mg/dL (8.8-10.2); CHLORIDE 107 mmol/L (98-107); COSMO 285; CREATININE 0.7 mg/dL (0.7-1.2); ESTIMATED GFR > 60; GLUCOSE 163 mg/dL (70-104); POTASSIUM 3.8 mmol/L (3.5-5.1); SODIUM 141 mmol/L (136-145); TCO2 24 mmol/L (25-35)
[2019-01-25] MEDS: BROVANA NEB INH SCH ×2 (10:52→21:46)
[2019-01-25] MEDS ORDERED: SODIUM CHLORIDE 0.9% 10 ML ONE (14:43)
[2019-01-25] MEDS: ROCEPHIN 1 GM in NS 50 ML IV SCH (16:01)
--- NOTE | 2019-01-25 21:01 | PROGRESS NOTE ---
DATE: 01/25/2019 SUBJECTIVE: The patient states that he is still very short of breath with minimal exertion. He states that he can barely walk to the restroom without having to stop to catch his breath. OBJECTIVE: Vital Signs: Temperature 97.6 degrees, blood pressure 124/77, heart rate 101, respirations 18, O2 saturation 92% on 2 L nasal cannula. General: This is a chronically ill- appearing elderly male sitting up in bed in no acute distress. Heart: S1, S2 normal. Regular rate and rhythm. Lungs: Diminished breath sounds bilaterally. No wheezing. No rales. Abdomen: Positive bowel sounds. Soft, nontender, nondistended. Extremities: No edema, no cyanosis. Neurologic: The patient is alert and oriented x4. LABORATORY DATA: White blood cell count 17, hemoglobin 13, hematocrit 39, platelets 367,000, BUN 12, creatinine 0.7 glucose 163. Sodium 141, potassium 3.8. ASSESSMENT AND PLAN: 1. Acute on chronic hypoxemic respiratory failure. The patient has a chronic obstructive pulmonary disease exacerbation. We will continue to treat the underlying issue. 2. Chronic obstructive pulmonary disease exacerbation. Continue with IV steroids, bronchodilator therapy, supplemental oxygen and antibiotics. 3. Mediastinal lymphadenopathy. We will await further recommendations from the production support manager. 4. Tobacco dependence. The patient has been counseled about smoking cessation. 5. Alcohol abuse. Continue on Librium and p.r.n. Ativan. We will monitor for withdrawal. 6. Deep vein thrombosis prophylaxis. We will start the patient on Lovenox. cc: Marianne Blue MD
[2019-01-25] MEDS: PROTONIX IV SCH (21:20)
[2019-01-25] MEDS: ZITHROMAX 500 MG/NS 500 MG/250 ML IVPB IV SCH (21:25)
[2019-01-26] MEDS: THIAMINE 100 MG in NS 50 ML IV SCH (01:05)
[2019-01-26] MEDS: DUONEB (A & A) INH SCH ×4 (03:24→22:50)
[2019-01-26 05:59] LABS: ALLEN TEST YES; BE 1.1 mmoll (-3.0-3.0); BLOOD TYPE ARTERIAL; HCO3-(ACT) 25.7 mmoll (20.0-26.0); METHB 0.8 % (0.0-1.5); O2(CT) 16.6 mL/dL (15.0-23.0); O2HB 93.7 % (95.0-99.0); PCO2(98.6) 37 mmHg (35-45); PO2(98.6) 68 mmHg (60-100); SAMPLE BLOOD; SAO2 97.3 % (95.0-100.0); THB 12.6 g/dL (11.5-17.4); pH(98.6) 7.44 (7.35-7.45)
[2019-01-26 06:01] LABS: MODALITY CANNULA
[2019-01-26] MEDS: TYLENOL PO PRN ×3 (06:13→21:38)
[2019-01-26] MEDS: ZOFRAN IV PRN (06:13)
[2019-01-26] MEDS: SOLU-MEDROL IV SCH ×4 (06:14→21:40)
[2019-01-26 06:58] LABS: BASO# 0.01 X1000 (0.0-0.2); BASO% 0.1 % (0.0-0.8); HEMATOCRIT 38.3 % (42.0-52.0); HEMOGLOBIN 12.7 g/dL (14.0-18.0); IMM GRAN# 0.04 X1000 (0.0-0.04); IMM GRAN% 0.4 % (0.0-0.5); LYMPH# 0.56 X1000 (1.2-3.4); MCH 32.8 PG (27-31); MCHC 33.2 g/dL (33-37); MONO# 0.34 X1000 (0.11-0.59); MPV 9.5 FL (7.4-10.4); NEUT# 10.25 X1000 (1.4-6.5); NEUT% 91.5 % (42.2-75.2); PLT 370 X1000 (130-400); RBC 3.87 XMIL (4.7-6.1); RDW 13.6 % (11.5-14.5)
[2019-01-26 07:20] LABS: MAGNESIUM 1.4 mg/dL (1.5-2.7); PHOSPHORUS 3.5 mg/dL (2.7-4.5)
[2019-01-26 07:22] LABS: AGAP 11; ALBUMIN 3.2 g/dL (3.5-5.0); ALKALINE PHOSPHATASE 111 U/L (32-122); BUN 12 mg/dL (8-22); CHLORIDE 105 mmol/L (98-107); COSMO 291; CREATININE 0.7 mg/dL (0.7-1.2); ESTIMATED GFR > 60; GLUCOSE 212 mg/dL (70-104); GOT 64 U/L (10-34); GPT 35 U/L (10-44); SODIUM 143 mmol/L (136-145); TCO2 27 mmol/L (25-35); TOTAL BILIRUBIN 0.29 mg/dL (0.20-1.00); TOTAL PROTEIN 6.5 g/dL (6.3-8.3)
--- NOTE | 2019-01-26 07:49 | Diag Imaging Result Doc PS360 ---
EXAM: CHEST-PORTABLE 01/26/2019 HISTORY: copd TECHNIQUE: AP upright portable at 0720 COMMENT: There are coarse fibrotic interstitial opacities throughout both lungs. The inspiration is less optimal than on 04/12/2016, and considering this there has been very little change since that examination. The possibility of mild pulmonary edema superimposed on the fibrosis cannot be excluded however. IMPRESSION: Pulmonary fibrosis. Electronically signed by Tay Porter 01/26/2019 7:47 AM
[2019-01-26] MEDS ORDERED: MAGNESIUM SULFATE 2 GM/S.W.I. 2 GM/50 ML IVPB IV ONE (07:54)
[2019-01-26] MEDS: CELEBREX PO SCH (09:10)
[2019-01-26] MEDS: LOVENOX SUBQ SCH (09:10)
[2019-01-26] MEDS: TUMS PO SCH ×3 (09:11→17:02)
[2019-01-26] MEDS: LIBRIUM PO SCH ×3 (09:11→17:03)
[2019-01-26] MEDS: TESSALON PO SCH ×3 (09:11→17:02)
[2019-01-26] MEDS: BROVANA NEB INH SCH ×2 (10:26→22:50)
[2019-01-26] MEDS: ROCEPHIN 1 GM in NS 50 ML IV SCH (17:03)
--- NOTE | 2019-01-26 20:36 | PROGRESS NOTE ---
DATE: 01/26/2019 SUBJECTIVE: The patient is resting comfortably. He states he still has severe shortness of breath with minimal exertion. OBJECTIVE: Vital Signs: Temperature 97.8 degrees, blood pressure 123/73, heart rate 99, respirations 18, O2 saturation 95% on 2 L nasal cannula. General: This is a chronically ill- appearing elderly male lying in bed in no acute distress. Heart: S1, S2 normal. Tachycardic. Lungs: Diminished breath sounds bilaterally. No wheezing. Abdomen: Positive bowel sounds. Soft, nontender, nondistended. Extremities: The patient has clubbing involving his fingers home. No edema noted in the lower extremities. Neuro: The patient is alert and oriented x4. LABS: White blood cell count 11, hemoglobin 12, hematocrit 38, platelets 370,000, sodium 143, potassium 4, chloride 105, CO2 27, glucose 212, magnesium 1.4. ASSESSMENT AND PLAN: 1. Acute hypoxemic respiratory failure. Will continue to treat the underlying disease process. 2. Chronic obstructive pulmonary disease exacerbation. Continue on IV steroids, bronchodilator therapy, antibiotics and supplemental oxygen. The patient will likely require home oxygen. Will consult with Sales Representative [employer] to arrange this. 3. Mediastinal lymphadenopathy. The patient will require a PET scan as outpatient. The case was discussed with Dr. Martinez and sarcoidosis is certainly in the differential. 4. Alcohol dependence. The patient is currently on Librium. Will start trying to wean the dosage. 5. Deep vein thrombosis prophylaxis. Continue on Lovenox. cc: Marianne Blue MD MTDD
[2019-01-26] MEDS: PROTONIX IV SCH (21:39)
[2019-01-26] MEDS: ZITHROMAX 500 MG/NS 500 MG/250 ML IVPB IV SCH (21:57)
[2019-01-27] MEDS: THIAMINE 100 MG in NS 50 ML IV SCH (01:15)
[2019-01-27] MEDS: DUONEB (A & A) INH SCH ×4 (03:50→21:50)
[2019-01-27] MEDS: SOLU-MEDROL IV SCH ×3 (05:10→22:29)
[2019-01-27] MEDS: TYLENOL PO PRN ×2 (05:45→19:40)
[2019-01-27 07:13] LABS: HEMATOCRIT 38.5 % (42.0-52.0); HEMOGLOBIN 13.1 g/dL (14.0-18.0); IMM GRAN# 0.07 X1000 (0.0-0.04); IMM GRAN% 0.6 % (0.0-0.5); LYMPH# 0.63 X1000 (1.2-3.4); LYMPH% 5.8 % (20.5-51.1); MCH 33.9 PG (27-31); MCV 99.5 FL (81-99); MONO# 0.38 X1000 (0.11-0.59); MONO% 3.5 % (1.7-9.3); MPV 9.4 FL (7.4-10.4); NEUT# 9.69 X1000 (1.4-6.5); NEUT% 90.1 % (42.2-75.2); PLT 366 X1000 (130-400); RBC 3.87 XMIL (4.7-6.1); RDW 13.6 % (11.5-14.5); WBC 10.77 X1000 (4.8-10.8)
[2019-01-27] MEDS ORDERED: MAGNESIUM SULFATE 2 GM/S.W.I. 2 GM/50 ML IVPB IV ONE (07:23)
[2019-01-27 07:39] LABS: BANDS 2 % (0-1); EOS 2 % (1-10); LYMPHS 10 % (21-51); MONO 2 % (1-9); SEGS 84 % (42-75)
[2019-01-27 08:26] LABS: AGAP 12; BUN 12 mg/dL (8-22); CALCIUM 9.1 mg/dL (8.8-10.2); CHLORIDE 105 mmol/L (98-107); COSMO 288; CREATININE 0.6 mg/dL (0.7-1.2); ESTIMATED GFR > 60; GLUCOSE 230 mg/dL (70-104); POTASSIUM 4.3 mmol/L (3.5-5.1); SODIUM 141 mmol/L (136-145); TCO2 24 mmol/L (25-35)
[2019-01-27] MEDS: LIBRIUM PO SCH ×3 (08:33→19:41)
[2019-01-27] MEDS: LOVENOX SUBQ SCH (08:33)
[2019-01-27] MEDS: TESSALON PO SCH ×3 (08:33→19:41)
[2019-01-27] MEDS: CELEBREX PO SCH (08:33)
[2019-01-27] MEDS: TUMS PO SCH ×3 (08:35→19:42)
[2019-01-27] MEDS: BROVANA NEB INH SCH ×2 (10:20→21:50)
--- NOTE | 2019-01-27 15:00 | Diag Imaging Result Doc PS360 ---
EXAM: CT MAXILLOFACIAL(SINUS) W/CON 01/27/2019 HISTORY: nosebleed/sinusitis TECHNIQUE: CT of the paranasal sinuses COMMENT: The paranasal sinuses are clear. The mastoids aren't pneumatized and the middle ear cavities are clear. IMPRESSION: No evidence of acute paranasal sinus disease. Electronically signed by Tay Porter 01/27/2019 2:58 PM
[2019-01-27] MEDS: ROCEPHIN 1 GM in NS 50 ML IV SCH (19:42)
--- NOTE | 2019-01-27 20:16 | PROGRESS NOTE ---
DATE: 01/27/2019 SUBJECTIVE: The patient continues to complain of shortness of breath with minimal exertion. OBJECTIVE: Vital Signs: Temperature 98.4, blood pressure 137/85, heart rate 103, respirations 18. O2 sats 95% on 2 L nasal cannula. General: This is a chronically ill- appearing elderly male lying in bed in no acute distress. Heart: S1, S2 normal. Tachycardic. Lungs: Diminished breath sounds bilaterally. No wheezing. Abdomen: Positive bowel sounds. Soft, nontender, nondistended. Extremities: No edema, no cyanosis. Neurologic: The patient is alert and oriented x 3. LABS: White blood cell count 10, hemoglobin 13, hematocrit 38, platelets 366,000. Sodium 141, potassium 4.3, chloride 95, CO2 24, BUN 12, creatinine 0.6, glucose 230, magnesium 1.7. ASSESSMENT AND PLAN: 1. Acute hypoxemic respiratory failure. Continue to treat COPD. 2. COPD exacerbation. Continue on IV steroids, bronchodilator therapy, antibiotics and supplemental oxygen. 3. Mediastinal lymphadenopathy. The patient will be scheduled by Dr. Martinez to undergo a PET scan as outpatient. 4. Alcohol dependence. Continue on Librium. 5. DVT prophylaxis. Continue on Lovenox. 6. Hyperglycemia. This may be steroid induced. We will check a hemoglobin A1c. Will start sliding scale insulin coverage. cc: Marianne Blue MD MTDD
[2019-01-27] MEDS: PROTONIX IV SCH (22:28)
[2019-01-27] MEDS: SODIUM CHLORIDE 0.9% 10 ML ONE (22:29)
[2019-01-27] MEDS: HUMULIN R SUBQ SCH (22:29)
[2019-01-27] MEDS: ZITHROMAX 500 MG/NS 500 MG/250 ML IVPB IV SCH (22:48)
[2019-01-28] MEDS: THIAMINE 100 MG in NS 50 ML IV SCH ×2 (00:41→23:45)
[2019-01-28] MEDS: DUONEB (A & A) INH SCH ×5 (03:15→23:32)
[2019-01-28 06:25] LABS: HEMATOCRIT 37.9 % (42.0-52.0); HEMOGLOBIN 12.7 g/dL (14.0-18.0); MCH 33.2 PG (27-31); MCHC 33.5 g/dL (33-37); MCV 99.2 FL (81-99); MPV 9.2 FL (7.4-10.4); RBC 3.82 XMIL (4.7-6.1); RDW 13.6 % (11.5-14.5); WBC 9.24 X1000 (4.8-10.8)
[2019-01-28 06:30] LABS: HEMOGLOBIN A1C 4.9 % (4.8-6.0)
[2019-01-28] MEDS: SOLU-MEDROL IV SCH ×3 (06:30→20:41)
[2019-01-28] MEDS: HUMULIN R SUBQ SCH ×4 (06:32→21:13)
[2019-01-28 06:56] LABS: AGAP 8; BUN 15 mg/dL (8-22); CALCIUM 8.7 mg/dL (8.8-10.2); CHLORIDE 105 mmol/L (98-107); COSMO 285; CREATININE 0.7 mg/dL (0.7-1.2); ESTIMATED GFR > 60; GLUCOSE 190 mg/dL (70-104); MAGNESIUM 1.8 mg/dL (1.5-2.7); POTASSIUM 4.3 mmol/L (3.5-5.1); SODIUM 140 mmol/L (136-145); TCO2 27 mmol/L (25-35)
[2019-01-28] MEDS ORDERED: BROVANA NEB ONE (07:05)
--- NOTE | 2019-01-28 07:49 | Diag Imaging Result Doc PS360 ---
EXAM: CHEST-2 VIEWS HISTORY: hypoxia TECHNIQUE: Chest two views COMPARISON: 01/26/2019 FINDINGS: The lungs are hyperexpanded. There are increased interstitial markings throughout the mid and lower lungs. The majority of these may be due to fibrosis. No cardiomegaly. No pleural effusions. IMPRESSION: Emphysema with fibrosis Electronically signed by Juan Alberto Antonio 01/28/2019 7:47 AM
[2019-01-28] MEDS: BROVANA NEB INH SCH ×2 (09:26→19:30)
[2019-01-28] MEDS: LIBRIUM PO SCH ×3 (10:06→20:40)
[2019-01-28] MEDS: TUMS PO SCH ×3 (10:07→16:24)
[2019-01-28] MEDS: CELEBREX PO SCH (10:07)
[2019-01-28] MEDS: LOVENOX SUBQ SCH (10:07)
[2019-01-28] MEDS: TESSALON PO SCH ×3 (10:07→20:41)
[2019-01-28] MEDS ORDERED: SODIUM CHLORIDE 0.9% 10 ML ONE (14:51)
[2019-01-28] MEDS: TYLENOL PO PRN ×2 (15:11→20:40)
[2019-01-28] MEDS: ROCEPHIN 1 GM in NS 50 ML IV SCH (16:23)
--- NOTE | 2019-01-28 17:15 | PROGRESS NOTE ---
DATE: 01/28/2019 SUBJECTIVE: Patient has no major complaints except he is just severely short of breath and nothing has helped, or he feels unimproved. OBJECTIVE: Vital Signs: Blood pressure is 151/80, heart rate of 101, respiratory rate 18, temperature 97.7 degrees, 94% on 4 L. Cardiovascular: Regular rate and rhythm. Pulmonary: Bilateral breath sounds clear to auscultation. Gastrointestinal: Abdomen soft, nontender, nondistended. Bowel sounds are positive. LABORATORY DATA: White count 9, hemoglobin and hematocrit 12 and 37, platelets 333,000. Basic was normal. PROBLEM LIST: 1. Acute hypoxic respiratory failure secondary to chronic obstructive pulmonary disease and pulmonary fibrosis. We will continue treatments. I am going to step up his treatments to q. 4 hours. He is on IV steroids, antibiotics, supplemental O2 with his hemoptysis. He had a chest CT scan on the which worsening fibrosis and severe emphysema and large mediastinal nodes. At some point, he may need bronchoscopy, but I think he has a combination of severe pulmonary fibrosis and chronic obstructive pulmonary disease and there may be limits to what else we can do in this stage. In any case, continue to follow closely. 2. Alcohol dependence. He is on very low-dose Librium. 3. Hyperglycemia may be steroid induced. His blood sugars have occasionally been above 200. His A1c though is only 4.9, suggestive that this may be just steroid induced. We will continue to monitor. At this point, I do not think we need to focus on stopping his other medicines. 4. Disposition. He has still kind of poor prognosis, but we will see how he does. On pulmonary exam, he has fine rales though at the left base extending 2/3 up his lung on the left side. cc: Mark Rizvi MD
[2019-01-28] MEDS: ZITHROMAX 500 MG/NS 500 MG/250 ML IVPB IV SCH ×2 (20:40→23:07)
[2019-01-28] MEDS: PROTONIX IV SCH ×2 (20:42→23:07)
[2019-01-28] MEDS: SODIUM CHLORIDE 0.9% 10 ML ONE (23:06)
[2019-01-29] MEDS: DUONEB (A & A) INH SCH ×6 (03:25→22:55)
[2019-01-29] MEDS: SOLU-MEDROL IV SCH ×3 (03:32→22:02)
[2019-01-29] MEDS: TYLENOL PO PRN ×4 (03:32→22:02)
[2019-01-29] MEDS: HUMULIN R SUBQ SCH ×4 (06:30→21:54)
[2019-01-29 07:04] LABS: BASO# 0.02 X1000 (0.0-0.2); BASO% 0.2 % (0.0-0.8); EOS# 0.03 X1000 (0.0-0.7); EOS% 0.3 % (0.0-10.0); HEMATOCRIT 42.2 % (42.0-52.0); HEMOGLOBIN 14.3 g/dL (14.0-18.0); IMM GRAN# 0.22 X1000 (0.0-0.04); IMM GRAN% 2.1 % (0.0-0.5); LYMPH# 0.45 X1000 (1.2-3.4); LYMPH% 4.3 % (20.5-51.1); MCHC 33.9 g/dL (33-37); MCV 100.2 FL (81-99); MONO# 0.57 X1000 (0.11-0.59); MONO% 5.4 % (1.7-9.3); MPV 9.5 FL (7.4-10.4); NEUT# 9.28 X1000 (1.4-6.5); NEUT% 87.7 % (42.2-75.2); PLT 303 X1000 (130-400); RBC 4.21 XMIL (4.7-6.1); WBC 10.57 X1000 (4.8-10.8)
[2019-01-29] MEDS ORDERED: BROVANA NEB ONE (07:19)
[2019-01-29] MEDS: BROVANA NEB INH SCH ×2 (07:23→19:40)
[2019-01-29 07:34] LABS: AGAP 11; BUN 18 mg/dL (8-22); CALCIUM 9.7 mg/dL (8.8-10.2); CHLORIDE 99 mmol/L (98-107); COSMO 278; CREATININE 0.8 mg/dL (0.7-1.2); ESTIMATED GFR > 60; GLUCOSE 180 mg/dL (70-104); POTASSIUM 4.4 mmol/L (3.5-5.1); SODIUM 136 mmol/L (136-145); TCO2 26 mmol/L (25-35)
[2019-01-29] MEDS: LIBRIUM PO SCH ×3 (08:47→22:02)
[2019-01-29] MEDS: TESSALON PO SCH ×3 (08:47→22:04)
[2019-01-29] MEDS: CELEBREX PO SCH (08:47)
[2019-01-29] MEDS: LOVENOX SUBQ SCH (08:47)
[2019-01-29] MEDS: TUMS PO SCH ×4 (08:47→17:11)
[2019-01-29] MEDS: ROCEPHIN 1 GM in NS 50 ML IV SCH (15:00)
[2019-01-29] MEDS ORDERED: SODIUM CHLORIDE 0.9% 10 ML ONE (15:04)
[2019-01-29] MEDS: ZITHROMAX 500 MG/NS 500 MG/250 ML IVPB IV SCH (21:53)
[2019-01-29] MEDS: PROTONIX IV SCH (22:02)
[2019-01-29] MEDS: THIAMINE 100 MG in NS 50 ML IV SCH (23:40)
[2019-01-30] MEDS: DUONEB (A & A) INH SCH ×6 (03:10→19:25)
--- NOTE | 2019-01-30 03:47 | PROGRESS NOTE ---
DATE: 01/29/2019 SUBJECTIVE: The patient states that he still feels very short of breath. OBJECTIVE: Vital Signs: Temperature 97.9 degrees, blood pressure 108/67, heart rate 105, respirations 22, O2 saturation 97% on 3 L nasal cannula. General: This is a chronically ill- appearing elderly male, lying in bed in no acute distress. Heart: S1, S2 normal, tachycardic. Lungs: Equal air entry bilaterally. No crackles. No rales. Abdomen: Positive bowel sounds. Soft, nontender, nondistended. Extremities: No edema, no cyanosis. The patient does have clubbing involving his fingers. Neurologic: The patient is alert and oriented x3. LABORATORIES: Reviewed. ASSESSMENT AND PLAN: 1. Acute hypoxemic respiratory failure. The patient continues to require supplemental oxygen. We will arrange with Business Segment Manager for home oxygen prior to discharge. 2. Chronic obstructive pulmonary disease exacerbation. Continue with IV steroids, bronchodilator therapy, and supplemental oxygen. 3. Alcohol dependence. The patient is on Librium. We will slowly taper this. 4. Mediastinal lymphadenopathy. Further workup planned by Dr. Martinez once the patient is discharged from the hospital. 5. Deep vein thrombosis prophylaxis. Continue on Lovenox. DISPOSITION: The patient states that he does not have insurance. Business Segment Manager will assist with obtaining home oxygen for the patient, as well as a nebulizer machine and assistance with his prescriptions. cc: Marianne Blue MD
[2019-01-30] MEDS: SOLU-MEDROL IV SCH ×2 (04:00→14:13)
[2019-01-30] MEDS: TYLENOL PO PRN ×3 (04:05→21:31)
[2019-01-30] MEDS: HUMULIN R SUBQ SCH ×4 (07:23→21:26)
[2019-01-30] MEDS: BROVANA NEB INH SCH ×2 (07:35→19:25)
[2019-01-30] MEDS: TUMS PO SCH ×3 (08:40→17:18)
[2019-01-30] MEDS: CELEBREX PO SCH (08:40)
[2019-01-30] MEDS: LIBRIUM PO SCH ×3 (08:40→21:26)
[2019-01-30] MEDS: LOVENOX SUBQ SCH (08:40)
[2019-01-30] MEDS: TESSALON PO SCH ×3 (08:40→21:26)
--- NOTE | 2019-01-30 15:29 | PROGRESS NOTE ---
DATE: 01/30/2019 SUBJECTIVE: The patient is resting comfortably. He continues to complain of shortness of breath when he tries to ambulate or do anything. OBJECTIVE: Vital Signs: Temperature 99 degrees, blood pressure 132/75, heart rate 106, respirations 22 and O2 saturation 94% on 2 L nasal cannula. General: This is a chronically ill- appearing elderly male lying in bed in no acute distress. Heart: S1, S2 normal. Regular rate and rhythm. Lungs: Equal air entry bilaterally. No crackles. No rales. No wheezing. Abdomen: Positive bowel sounds. Soft, nontender, and nondistended. Extremities: No edema. No cyanosis. Neurologic: The patient is alert and oriented x3. LABORATORY: None. ASSESSMENT AND PLAN: 1. Acute hypoxemic respiratory failure. Multifactorial. The patient has pulmonary fibrosis and emphysema. He also has mediastinal lymphadenopathy and right apical nodule. 2. Chronic obstructive pulmonary disease exacerbation. Unchanged. Continue with current treatment as recommended by the mold maintenance technician. 3. Pulmonary fibrosis. Aware. 4. Severe emphysema. Aware. 5. Steroid-induced hyperglycemia. Continue on insulin therapy. 6. Epistaxis. We will consult the ENT as CT of the sinuses is noted to be unremarkable. 7. Gastrointestinal prophylaxis. Continue on IV Protonix. 8. Disposition. The patient will require home oxygen. We will consult with Rn Picu to arrange for the oxygen. Also, the patient will need a nebulizer machine. cc: Marianne Blue MD
[2019-01-30] MEDS: ROCEPHIN 1 GM in NS 50 ML IV SCH (15:51)
[2019-01-30] MEDS: ZITHROMAX 500 MG/NS 500 MG/250 ML IVPB IV SCH (21:25)
[2019-01-30] MEDS: PROTONIX IV SCH (21:25)
[2019-01-30] MEDS: ZOFRAN IV PRN (21:26)
[2019-01-30] MEDS: THIAMINE 100 MG in NS 50 ML IV SCH (23:32)
[2019-01-31] MEDS: DUONEB (A & A) INH SCH ×6 (03:08→23:25)
[2019-01-31] MEDS: TYLENOL PO PRN ×3 (05:44→21:35)
[2019-01-31] MEDS: HUMULIN R SUBQ SCH ×4 (06:20→21:36)
[2019-01-31] MEDS: BROVANA NEB INH SCH ×2 (07:15→19:30)
[2019-01-31 07:18] LABS: HEMATOCRIT 40.8 % (42.0-52.0); MCHC 34.3 g/dL (33-37); MPV 9.4 FL (7.4-10.4); RDW 14.4 % (11.5-14.5); WBC 11.23 X1000 (4.8-10.8)
[2019-01-31 07:41] LABS: AGAP 9; BUN 19 mg/dL (8-22); CALCIUM 8.7 mg/dL (8.8-10.2); CHLORIDE 103 mmol/L (98-107); COSMO 281; CREATININE 0.8 mg/dL (0.7-1.2); ESTIMATED GFR > 60; GLUCOSE 116 mg/dL (70-104); SODIUM 139 mmol/L (136-145); TCO2 27 mmol/L (25-35)
[2019-01-31] MEDS: CELEBREX PO SCH (08:10)
[2019-01-31] MEDS: TUMS PO SCH ×3 (08:10→16:43)
[2019-01-31] MEDS: TESSALON PO SCH ×3 (08:10→16:43)
[2019-01-31] MEDS: LOVENOX SUBQ SCH (08:11)
[2019-01-31] MEDS: SOLU-MEDROL IV SCH ×2 (08:11→21:35)
[2019-01-31] MEDS: LIBRIUM PO SCH ×3 (08:17→16:43)
--- NOTE | 2019-01-31 14:24 | PROGRESS NOTE ---
DATE: 01/31/2019 SUBJECTIVE: The patient is resting in bed. He states that he still feels short of breath. OBJECTIVE: Vital Signs: Temperature 97.5 degrees, blood pressure 122/65, heart rate 90, respirations 16, O2 saturation 93% on 3 L nasal cannula. General: This is a chronically ill- appearing, elderly male, sitting up in bed. Heart: S1, S2 normal. Regular rate and rhythm. Lungs: Diminished breath sounds bilaterally. Abdomen: Positive bowel sounds. Soft, nontender, nondistended. Extremities: No edema, no cyanosis. Neurologic: The patient is alert and oriented x3. LABORATORY DATA: White blood cell count 11, hemoglobin 14, hematocrit 40, platelets 308,000. Sodium 139, potassium 4, BUN 19, creatinine 0.8 glucose 173. ASSESSMENT AND PLAN: 1. Acute hypoxemic respiratory failure. The patient will likely require supplemental oxygen. Medical Office Assistant is working on obtaining this. 2. Chronic obstructive pulmonary disease exacerbation. No change. Continue with the current treatment regimen. 3. Pulmonary fibrosis. Aware. 4. Severe emphysema. Aware. 5. Mediastinal lymphadenopathy. The patient may benefit from an endobronchial ultrasound. Dr. Martinez is following. 6. Alcohol dependence. Continue on Librium. We will continue to taper this dosage. 7. Right apical lung nodule. The patient will likely have to undergo a PET scan as outpatient. 8. Disposition. Medical Office Assistant is working on discharge planning for the patient. cc: Marianne Blue MD MTDD
[2019-01-31] MEDS ORDERED: AYR NASAL SPRAY NAS PRN (15:35)
[2019-01-31] MEDS: ROCEPHIN 1 GM in NS 50 ML IV SCH (16:44)
[2019-01-31] MEDS: PROTONIX IV SCH (21:35)
[2019-01-31] MEDS: ZITHROMAX 500 MG/NS 500 MG/250 ML IVPB IV SCH (21:35)
[2019-01-31] MEDS: THIAMINE 100 MG in NS 50 ML IV SCH (23:40)
[2019-02-01] MEDS: DUONEB (A & A) INH SCH ×6 (03:40→23:22)
[2019-02-01] MEDS: HUMULIN R SUBQ SCH ×4 (06:36→21:05)
[2019-02-01] MEDS: TYLENOL PO PRN ×2 (06:36→21:07)
[2019-02-01 07:08] LABS: HEMATOCRIT 39.2 % (42.0-52.0); MCH 34.1 PG (27-31); MCHC 33.2 g/dL (33-37); MCV 102.9 FL (81-99); MPV 9.3 FL (7.4-10.4); RBC 3.81 XMIL (4.7-6.1); RDW 14.1 % (11.5-14.5); WBC 8.88 X1000 (4.8-10.8)
[2019-02-01] MEDS: BROVANA NEB INH SCH ×2 (07:30→20:40)
[2019-02-01 07:31] LABS: AGAP 10; BUN 20 mg/dL (8-22); CALCIUM 8.9 mg/dL (8.8-10.2); CHLORIDE 99 mmol/L (98-107); COSMO 277; CREATININE 0.7 mg/dL (0.7-1.2); ESTIMATED GFR > 60; GLUCOSE 150 mg/dL (70-104); POTASSIUM 4.4 mmol/L (3.5-5.1); SODIUM 136 mmol/L (136-145); TCO2 27 mmol/L (25-35)
--- NOTE | 2019-02-01 07:44 | Diag Imaging Result Doc PS360 ---
CHEST-PORTABLE - 02/01/2019 INDICATION: dyspnea COMPARISON: 01/28/2019 FINDINGS: There has been some worsening in the right basilar infiltrate, superimposed on the pre-existing extensive interstitial pulmonary fibrosis. Heart size is top normal. No pneumothorax or significant pleural effusion. IMPRESSION: Worsening right basilar infiltrate suggesting pneumonia or pulmonary edema superimposed on pulmonary fibrosis. Electronically signed by Agusto Mcdowell 02/01/2019 7:41 AM
[2019-02-01] MEDS: TESSALON PO SCH ×3 (09:08→15:59)
[2019-02-01] MEDS: CELEBREX PO SCH (09:08)
[2019-02-01] MEDS: TUMS PO SCH ×3 (09:08→15:59)
[2019-02-01] MEDS: LOVENOX SUBQ SCH (09:09)
[2019-02-01] MEDS: SOLU-MEDROL IV SCH ×2 (09:09→21:09)
[2019-02-01] MEDS: ATIVAN IV PRN ×2 (09:30→21:07)
[2019-02-01] MEDS ORDERED: SODIUM CHLORIDE 0.9% 10 ML ONE (15:18)
[2019-02-01] MEDS: ROCEPHIN 1 GM in NS 50 ML IV SCH (15:59)
[2019-02-01] MEDS ORDERED: BROVANA NEB ONE (19:32)
--- NOTE | 2019-02-01 19:39 | PROGRESS NOTE ---
DATE: 02/01/2019 SUBJECTIVE: The patient is resting comfortably in bed. No acute events noted overnight. The patient continues to complain of shortness of breath with minimal exertion. OBJECTIVE: Vital Signs: Temperature 97.4 degrees, blood pressure 122/77, heart rate 107, respirations 20, O2 saturation 95% on 3 L nasal cannula. General: This is an elderly male lying in bed in no acute distress. Heart: S1, S2 normal. Tachycardic. Lungs: Diminished breath sounds. No crackles. No rales. No wheezing. Abdomen: Positive bowel sounds. Soft, nontender, nondistended. Extremities: No edema, no cyanosis. Neurologic: The patient is alert and oriented x4. LABORATORY DATA: White blood cell count 8.8, hemoglobin 13, hematocrit 39, platelets 286,000. Sodium 136, potassium 4.4, chloride 99, CO2 is 27, BUN 20, creatinine 0.7, glucose 150. ProBNP 616. DIAGNOSTIC DATA: Chest x-ray shows worsening right basilar infiltrate, suggesting pneumonia or pulmonary edema superimposed on pulmonary fibrosis. ASSESSMENT AND PLAN: 1. Acute hypoxemic respiratory failure. Community Resource Consultant is working on obtaining home oxygen for the patient, since he does qualify for this. 2. Possible pneumonia. We will check a procalcitonin level. Continue with antibiotic therapy. 3. Chronic obstructive pulmonary disease exacerbation. Continue with the current treatment regimen. 4. Pulmonary fibrosis. Aware. 5. Right apical lung nodule. The patient will require a PET scan as an outpatient. 6. Severe emphysema. Aware. 7. Mediastinal lymphadenopathy. A PET scan is planned as outpatient to further assess this. 8. Alcohol dependence. Aware. The patient has been counseled about alcohol cessation. Continue with p.r.n. Ativan. 9. Gastrointestinal prophylaxis. Continue on Protonix. 10. Deep vein thrombosis prophylaxis. Continue on Lovenox. cc: Marianne Blue MD
[2019-02-01] MEDS: ZITHROMAX 500 MG/NS 500 MG/250 ML IVPB IV SCH (21:07)
[2019-02-01] MEDS: PROTONIX IV SCH (21:08)
--- NOTE | 2019-02-01 21:24 | PULMONOLOGY PROGRESS NOTE ---
DATE: 02/01/2019 SUBJECTIVE: The patient is awake, alert, and conversant. He reports he feels better but does have dyspnea with any exertion. OBJECTIVE: Vital signs: Blood pressure 122/77, heart rate 107, respiratory rate 20, oxygen saturation 95% on nasal cannula. HEENT: Pupils are equal and reactive. Oropharynx is clear. Neck: Supple. Chest: Reveals crackles throughout the lung bases with prolonged expiratory phase. Cardiac Exam: S1, S2. Abdomen: Soft. Extremities: Without edema. LABORATORY DATA: Sodium 136, potassium 4.4, chloride 99, bicarbonate 27, BUN 20, creatinine 0.7, glucose 150. White blood count 8.88, hemoglobin 13.0, platelet count 286,000. MCV is elevated at 102.9. IMPRESSION: A 58-year-old with end-stage combined emphysema and fibrosis with acute on chronic hypoxemic respiratory failure. He has [id number] nonspecific hilar and mediastinal lymph nodes of unknown significance. He is an extremely poor surgical candidate. The patient has long history of alcohol abuse, and his MCV is elevated consistent with this fact. RECOMMENDATIONS: 1. Arrange for home oxygen for chronic hypoxemic respiratory failure if possible. 2. Strongly counseled patient about the importance of alcohol cessation. 3. Recommend referring to a lung transplant Clinic. This should be delayed until he has been off alcohol for at least a year. 4. Recommend arranging outpatient primary care physician. 5. His long-term prognosis appears to be poor. cc: MD Klever Solis MD
[2019-02-02] MEDS: THIAMINE 100 MG in NS 50 ML IV SCH (00:44)
[2019-02-02] MEDS: DUONEB (A & A) INH SCH ×6 (02:43→22:58)
[2019-02-02 06:53] LABS: BASO# 0.01 X1000 (0.0-0.2); BASO% 0.1 % (0.0-0.8); EOS# 0.01 X1000 (0.0-0.7); EOS% 0.1 % (0.0-10.0); HEMATOCRIT 40.3 % (42.0-52.0); HEMOGLOBIN 13.4 g/dL (14.0-18.0); IMM GRAN# 0.25 X1000 (0.0-0.04); IMM GRAN% 2.6 % (0.0-0.5); LYMPH# 0.63 X1000 (1.2-3.4); LYMPH% 6.5 % (20.5-51.1); MCH 33.8 PG (27-31); MCHC 33.3 g/dL (33-37); MCV 101.5 FL (81-99); MONO% 8.2 % (1.7-9.3); MPV 9.4 FL (7.4-10.4); NEUT# 8.02 X1000 (1.4-6.5); NEUT% 82.5 % (42.2-75.2); PLT 267 X1000 (130-400); RBC 3.97 XMIL (4.7-6.1); RDW 13.7 % (11.5-14.5); WBC 9.72 X1000 (4.8-10.8)
[2019-02-02] MEDS: HUMULIN R SUBQ SCH ×4 (06:53→22:51)
[2019-02-02 07:05] LABS: AGAP 9; BUN 18 mg/dL (8-22); CALCIUM 9.1 mg/dL (8.8-10.2); CHLORIDE 101 mmol/L (98-107); COSMO 284; CREATININE 0.8 mg/dL (0.7-1.2); ESTIMATED GFR > 60; GLUCOSE 172 mg/dL (70-104); POTASSIUM 4.3 mmol/L (3.5-5.1); SODIUM 139 mmol/L (136-145); TCO2 29 mmol/L (25-35)
[2019-02-02] MEDS ORDERED: BROVANA NEB ONE (07:28)
[2019-02-02] MEDS: BROVANA NEB INH SCH ×2 (07:36→19:13)
[2019-02-02] MEDS: TESSALON PO SCH ×3 (09:24→16:09)
[2019-02-02] MEDS: TUMS PO SCH ×3 (09:24→16:09)
[2019-02-02] MEDS: SOLU-MEDROL IV SCH ×2 (09:25→20:28)
[2019-02-02] MEDS: CELEBREX PO SCH (09:25)
[2019-02-02] MEDS: LOVENOX SUBQ SCH (09:25)
[2019-02-02] MEDS: MYCOSTATIN SUSP PO SCH ×3 (13:07→20:28)
[2019-02-02] MEDS: ROCEPHIN 1 GM in NS 50 ML IV SCH (16:08)
--- NOTE | 2019-02-02 18:06 | PROGRESS NOTE ---
DATE: 02/02/2019 SUBJECTIVE: The patient is resting comfortably in bed. No acute events noted overnight. OBJECTIVE: Vital Signs: Temperature 97, blood pressure 110/71, heart rate 97, respirations 22, O2 saturation 98% on 4 L nasal cannula. General: This is a chronically ill-appearing, elderly male, lying in bed in no acute distress. Heart: S1, S2. Normal. Lungs: Diminished breath sounds bilaterally. Abdomen: Positive bowel sounds. Soft, nontender, nondistended. Extremities: No edema. No cyanosis. Neurologic: The patient is alert and oriented x3. LABS: Reviewed. ASSESSMENT AND PLAN: 1. Acute hypoxemic respiratory failure. Aware. 2. Chronic obstructive pulmonary disease exacerbation. Continue with the current treatment regimen. 3. Pulmonary fibrosis. Aware. 4. Severe emphysema. Aware. 5. Right apical lung nodule. The patient will likely need a PET scan as outpatient. 6. Mediastinal lymphadenopathy. This will be worked up further as outpatient with a PET scan. 7. Alcohol dependence. Aware. Continue with p.r.n. Ativan. 8. Gastrointestinal prophylaxis. Continue on Protonix. 9. Deep vein thrombosis prophylaxis. Continue on Lovenox. 10. Disposition. Hogshead Press Operator is working on arranging home oxygen for the patient. cc: Marianne Blue MD
--- NOTE | 2019-02-02 20:01 | PULMONOLOGY PROGRESS NOTE ---
DATE: 02/02/2019 SUBJECTIVE: The patient is awake, alert and conversant. He reports he is returning to his baseline. OBJECTIVE: The patient has been afebrile for the last 24 hours. Blood pressure 110/71, heart rate 90, respiratory rate 18, oxygen saturation 98%. HEENT: Pupils are equal and reactive. Oropharynx is clear. Neck is supple. Chest reveals bilateral crackles. Cardiac exam: S1, S2. Abdomen is soft and without hepatosplenomegaly. Extremities are without edema. IMPRESSION: 1. A 58-year-old with severe combined emphysema and fibrosis. 2. Nonspecific mediastinal adenopathy, which has progressed over the last 4 years. 3. Hypoxemic respiratory failure. 4. Alcohol abuse. RECOMMENDATIONS: 1. Anticipate oxygen at the time of discharge. 2. Alcohol cessation strongly recommended. 3. Consider evaluation at a transplant facility. He will not be a transplant candidate if he has not stopped drinking for a year. cc: Barrett Ashton MD
[2019-02-02] MEDS: ATIVAN IV PRN (20:28)
[2019-02-02] MEDS: PROTONIX IV SCH (20:28)
[2019-02-02] MEDS: ZITHROMAX 500 MG/NS 500 MG/250 ML IVPB IV SCH (20:28)
[2019-02-03] MEDS: THIAMINE 100 MG in NS 50 ML IV SCH ×2 (00:38→23:57)
[2019-02-03] MEDS: DUONEB (A & A) INH SCH ×6 (02:49→22:56)
[2019-02-03] MEDS: TYLENOL PO PRN ×2 (03:04→21:02)
[2019-02-03 06:56] LABS: BASO# 0.01 X1000 (0.0-0.2); BASO% 0.1 % (0.0-0.8); HEMATOCRIT 39.1 % (42.0-52.0); HEMOGLOBIN 13.1 g/dL (14.0-18.0); IMM GRAN# 0.18 X1000 (0.0-0.04); IMM GRAN% 1.5 % (0.0-0.5); LYMPH# 0.97 X1000 (1.2-3.4); MCH 33.9 PG (27-31); MCHC 33.5 g/dL (33-37); MONO# 0.94 X1000 (0.11-0.59); MONO% 7.8 % (1.7-9.3); MPV 9.6 FL (7.4-10.4); NEUT# 9.95 X1000 (1.4-6.5); NEUT% 82.6 % (42.2-75.2); PLT 247 X1000 (130-400); RBC 3.87 XMIL (4.7-6.1); RDW 13.6 % (11.5-14.5); WBC 12.05 X1000 (4.8-10.8)
[2019-02-03 07:13] LABS: AGAP 7; BUN 20 mg/dL (8-22); CALCIUM 8.7 mg/dL (8.8-10.2); CHLORIDE 103 mmol/L (98-107); COSMO 280; CREATININE 0.6 mg/dL (0.7-1.2); ESTIMATED GFR > 60; GLUCOSE 134 mg/dL (70-104); POTASSIUM 4.4 mmol/L (3.5-5.1); SODIUM 138 mmol/L (136-145); TCO2 28 mmol/L (25-35)
[2019-02-03] MEDS ORDERED: BROVANA NEB ONE (07:24)
[2019-02-03] MEDS: BROVANA NEB INH SCH ×2 (07:27→19:00)
[2019-02-03] MEDS: HUMULIN R SUBQ SCH ×4 (07:42→20:42)
[2019-02-03] MEDS: MYCOSTATIN SUSP PO SCH ×4 (08:41→20:54)
[2019-02-03] MEDS: TESSALON PO SCH ×3 (08:42→16:02)
[2019-02-03] MEDS: TUMS PO SCH ×3 (08:42→16:02)
[2019-02-03] MEDS: CELEBREX PO SCH (08:42)
[2019-02-03] MEDS: LOVENOX SUBQ SCH (08:42)
[2019-02-03] MEDS: SOLU-MEDROL IV SCH (08:42)
[2019-02-03] MEDS: ATIVAN IV PRN ×2 (09:03→21:03)
[2019-02-03] MEDS: ROCEPHIN 1 GM in NS 50 ML IV SCH (16:03)
[2019-02-03] MEDS: ZITHROMAX 500 MG/NS 500 MG/250 ML IVPB IV SCH (20:53)
[2019-02-03] MEDS: PROTONIX IV SCH (20:54)
--- NOTE | 2019-02-03 20:59 | PULMONOLOGY PROGRESS NOTE ---
DATE: 02/03/2019 SUBJECTIVE: The patient is awake, alert and conversant. He has a dry cough. He reports he is having a fairly good day. OBJECTIVE: Vital Signs: The patient has been afebrile for the last 24 hours. Blood pressure 107/67, heart rate 110, respiratory rate 16, oxygen saturation 96% on 3 L per nasal cannula. HEENT: Pupils are equal and reactive. Oropharynx is clear. Neck: Supple. Chest: Reveals crackles in both lung bases. Cardiac: S1, S2. Abdomen: Soft. Extremities: Without edema. LABORATORIES: Sodium 138, potassium 4.4, chloride 103, bicarbonate 28, BUN 20, creatinine 0.6, glucose 134. White blood count 12.05, hemoglobin 13.1, platelet count 247,000. IMPRESSION: A 58-year-old with: 1. Severe combined emphysema and progressive fibrosis. 2. Nonspecific mediastinal adenopathy, which has progressed over the last 4 years. 3. Hypoxemic respiratory failure. 4. Alcohol abuse. RECOMMENDATIONS: 1. Continue oxygen at the time of discharge. 2. Alcohol cessation strongly recommended. 3. Consider referral to a transplant facility. The patient has the radiographic appearance of end-stage lung disease. However, he will not be a candidate for transplant if he does not stop drinking. cc: Barrett Ashton MD
[2019-02-04] MEDS: DUONEB (A & A) INH SCH ×6 (03:32→23:54)
[2019-02-04] MEDS: TYLENOL PO PRN ×2 (05:02→17:51)
[2019-02-04] MEDS: HUMULIN R SUBQ SCH ×4 (06:06→21:56)
[2019-02-04] MEDS ORDERED: BROVANA NEB ONE (07:30)
[2019-02-04] MEDS: BROVANA NEB INH SCH ×2 (07:32→19:22)
[2019-02-04] MEDS: CELEBREX PO SCH (08:58)
[2019-02-04] MEDS: TUMS PO SCH ×3 (08:59→17:45)
[2019-02-04] MEDS: PREDNISONE PO SCH (08:59)
[2019-02-04] MEDS: TESSALON PO SCH ×3 (08:59→17:45)
[2019-02-04] MEDS: MYCOSTATIN SUSP PO SCH ×4 (08:59→21:55)
[2019-02-04] MEDS: LOVENOX SUBQ SCH (08:59)
--- NOTE | 2019-02-04 09:00 | PROGRESS NOTE ---
DATE: 02/03/2019 SUBJECTIVE: The patient is resting comfortably in bed. No acute events noted overnight. OBJECTIVE: Vital Signs: Temperature 99 degrees, blood pressure 125/78, heart rate 99, respirations 20, O2 saturations 95% on 4 L nasal cannula. General: This is a chronically ill- appearing, elderly male lying in bed in no acute distress. Heart: S1, S2 normal. Tachycardic. Lungs: Diminished breath sounds bilaterally. No wheezing. Abdomen: Positive bowel sounds. Soft, nontender, nondistended. Extremities: No edema, no cyanosis. Neurologic: The patient is alert and oriented x3. LABS: Reviewed. ASSESSMENT AND PLAN: 1. Acute hypoxemic respiratory failure. The patient will require home oxygen upon discharge. 2. Chronic obstructive pulmonary disease. We will start the patient on prednisone and discontinue the Solu-Medrol, and continue with bronchodilator therapy. 3. Alcohol dependence. The patient has been counseled about alcohol cessation. 4. Severe emphysema with pulmonary fibrosis. Aware. 5. Right apical lung nodule. The patient will need a PET scan as outpatient. 6. Mediastinal lymphadenopathy. The patient will require PET scan to further assess this. 7. Gastrointestinal prophylaxis. Continue on Protonix. 8. Deep vein thrombosis prophylaxis. Continue on Lovenox. 9. Disposition. The patient should be able to be discharged home within the next 24 to 48 hours. cc: Marianne Blue MD
--- NOTE | 2019-02-04 10:02 | Diag Imaging Result Doc PS360 ---
EXAM: CHEST-PORTABLE HISTORY: dyspnea TECHNIQUE: Chest single view COMPARISON: 02/01/2019 FINDINGS: Poor inspiratory effort. There are increased interstitial markings throughout both lungs. These are similar to the prior exam except for in the right lung base with a may be slightly less prominent. No cardiomegaly. No pleural effusions identified. IMPRESSION: Questionable slight improvement in the right lung base. Electronically signed by Juan Alberto Antonio 02/04/2019 10:00 AM
[2019-02-04] MEDS: ATIVAN IV PRN ×2 (10:22→17:51)
--- NOTE | 2019-02-04 15:20 | PROGRESS NOTE ---
DATE: 02/04/2019 SUBJECTIVE: The patient is sitting up in bed. Whenever the patient takes his oxygen off and tries to ambulate, he desaturates quickly to the 70s. He has been advised to keep his oxygen on at all times. OBJECTIVE: Vital Signs: Temperature 98 degrees, blood pressure 105/70, heart rate 84, respirations 21, O2 saturation 95% on 2 L nasal cannula. General: This is a chronically ill- appearing elderly male lying in bed in no acute distress. Heart: S1, S2 normal. Regular rate and rhythm. Lungs: Equal air entry bilaterally. Mild inspiratory crackles. Abdomen: Positive bowel sounds. Soft, nontender, nondistended. Extremities: No edema, no cyanosis. Neurologic: The patient is alert and oriented x4. LABORATORY DATA: None. ASSESSMENT AND PLAN: 1. Chronic hypoxemic respiratory failure. The patient will require home oxygen. Account Manager Trainee is working on obtaining it. 2. Chronic obstructive pulmonary disease exacerbation. Continue on prednisone and bronchodilator therapy. 3. Alcohol dependence. The patient has been counseled about cessation. 4. Severe emphysema with pulmonary fibrosis. Aware. 5. Right apical lung nodule. The patient will need an outpatient PET scan. 6. Mediastinal lymphadenopathy. An outpatient PET scan will be scheduled by the fishing game warden to further assess this. 7. Gastrointestinal prophylaxis. Continue on Protonix. 8. Deep vein thrombosis prophylaxis. Continue on Lovenox. 9. Disposition. Will plan to discharge the patient home once cleared by the fishing game warden. cc: Marianne Blue MD
[2019-02-04] MEDS: ROCEPHIN 1 GM in NS 50 ML IV SCH (17:45)
[2019-02-04] MEDS: ZITHROMAX 500 MG/NS 500 MG/250 ML IVPB IV SCH (21:55)
[2019-02-04] MEDS: PROTONIX IV SCH (21:55)
[2019-02-05] MEDS: THIAMINE 100 MG in NS 50 ML IV SCH ×2 (00:25→23:47)
[2019-02-05] MEDS: DUONEB (A & A) INH SCH ×6 (03:15→23:33)
[2019-02-05] MEDS: TYLENOL PO PRN ×3 (05:50→21:24)
[2019-02-05 06:50] LABS: HEMOGLOBIN 13.5 g/dL (14.0-18.0); MCHC 32.9 g/dL (33-37); MCV 103.3 FL (81-99); MPV 9.3 FL (7.4-10.4); RBC 3.97 XMIL (4.7-6.1); RDW 13.9 % (11.5-14.5); WBC 10.4 X1000 (4.8-10.8)
[2019-02-05] MEDS: HUMULIN R SUBQ SCH ×4 (06:52→21:24)
[2019-02-05 07:26] LABS: AGAP 4; BUN 20 mg/dL (8-22); CALCIUM 8.7 mg/dL (8.8-10.2); CHLORIDE 100 mmol/L (98-107); COSMO 276; CREATININE 0.6 mg/dL (0.7-1.2); ESTIMATED GFR > 60; GLUCOSE 99 mg/dL (70-104); POTASSIUM 3.7 mmol/L (3.5-5.1); SODIUM 137 mmol/L (136-145); TCO2 33 mmol/L (25-35)
[2019-02-05] MEDS: BROVANA NEB INH SCH ×2 (07:35→20:19)
[2019-02-05] MEDS: PREDNISONE PO SCH (09:27)
[2019-02-05] MEDS: CELEBREX PO SCH (09:27)
[2019-02-05] MEDS: TESSALON PO SCH ×3 (09:27→21:22)
[2019-02-05] MEDS: TUMS PO SCH ×3 (09:27→21:23)
[2019-02-05] MEDS: LOVENOX SUBQ SCH (09:28)
[2019-02-05] MEDS: MYCOSTATIN SUSP PO SCH ×4 (09:28→21:22)
[2019-02-05] MEDS: ATIVAN IV PRN ×2 (13:34→21:31)
[2019-02-05] MEDS: ROCEPHIN 1 GM in NS 50 ML IV SCH (15:27)
[2019-02-05] MEDS ORDERED: SODIUM CHLORIDE 0.9% 10 ML ONE (15:30)
[2019-02-05] MEDS ORDERED: BROVANA NEB ONE (19:26)
[2019-02-05] MEDS: ZITHROMAX 500 MG/NS 500 MG/250 ML IVPB IV SCH (21:22)
[2019-02-05] MEDS: PROTONIX IV SCH (21:23)
--- NOTE | 2019-02-05 22:27 | PROGRESS NOTE ---
DATE: 02/05/2019 SUBJECTIVE: Patient's breathing is stable, not much improvement but overall doing okay. Blood pressure 105/63, heart rate 88, respiratory rate 22, temperature 97.3 degrees, 95% on 3 L.Cardiovascular: Regular rate and rhythm. Pulmonary: Fine rales bilaterally. GI: Was soft, nontender, nondistended. Bowel sounds are positive. LAB: White count 10, hemoglobin and hematocrit 13 and 41, platelets 233,000. Basic was normal. PROBLEM LIST: 1. Acute chronic obstructive pulmonary disease exacerbation. Will continue treatment bronchodilator, steroids. 2. Acute on chronic respiratory failure likely multifactorial. Evaluating for home O2. Appears to be overall stable. 3. Pulmonary fibrosis. We will continue to monitor closely. DISPOSITION: Home per Pulmonary hopefully in the next 1 to 2 days pending his clinical status and again he will likely need home O2. cc: Mark Rizvi MD
[2019-02-06] MEDS: DUONEB (A & A) INH SCH ×6 (03:46→23:12)
[2019-02-06] MEDS: HUMULIN R SUBQ SCH ×3 (06:41→17:20)
[2019-02-06] MEDS: BROVANA NEB INH SCH ×2 (08:14→19:30)
[2019-02-06] MEDS: CELEBREX PO SCH (09:41)
[2019-02-06] MEDS: TESSALON PO SCH ×3 (09:42→21:44)
[2019-02-06] MEDS: MYCOSTATIN SUSP PO SCH ×4 (09:42→21:43)
[2019-02-06] MEDS: TUMS PO SCH ×3 (09:42→21:44)
[2019-02-06] MEDS: PREDNISONE PO SCH (09:43)
[2019-02-06] MEDS: LOVENOX SUBQ SCH (09:43)
[2019-02-06] MEDS: ATIVAN IV PRN ×2 (09:48→15:00)
[2019-02-06] MEDS: TYLENOL PO PRN (09:48)
[2019-02-06] MEDS ORDERED: SODIUM CHLORIDE 0.9% 10 ML ONE (15:30)
[2019-02-06] MEDS: ROCEPHIN 1 GM in NS 50 ML IV SCH (17:00)
--- NOTE | 2019-02-06 19:15 | PROGRESS NOTE ---
DATE: 02/06/2019 SUBJECTIVE: The patient has no major complaints. Breathing has improved. OBJECTIVE: Vital signs: Blood pressure is 112/65, heart rate 97, respiratory rate 18, temperature 97.8 degrees, 99% on 3 L. Cardiovascular: Regular rate and rhythm. Pulmonary: Bilateral breath sounds. Clear to auscultation. Gastrointestinal: Soft, nontender, nondistended. Bowel sounds are positive. LABORATORY DATA: White count is not done today, 10 yesterday. PROBLEM LIST: 1. Acute chronic obstructive pulmonary disease exacerbation. He is on breathing treatments, steroids, seems to be doing better. 2. Acute on chronic respiratory failure due to pulmonary fibrosis and chronic obstructive pulmonary disease. That also seems to have improved. 3. Breathing difficulties. He has been on azithromycin since the , which that would give him 15 days. I do not think we need to continue that. Thiamin we can switch to p.o. He has been on Rocephin since. That would be 14 days, probably consider stopping that soon as well. I think overall he is heading towards being dischargeable, but the problem is his social situation is difficult because he does not have resources for oxygen yet and desperately needs it so we will work with patient trying to get that established. cc: Mark Rizvi MD
[2019-02-07] MEDS: DUONEB (A & A) INH SCH ×6 (03:16→23:41)
[2019-02-07] MEDS: ATIVAN IV PRN ×2 (04:58→22:19)
[2019-02-07] MEDS: TYLENOL PO PRN ×2 (04:58→22:19)
[2019-02-07] MEDS: HUMULIN R SUBQ SCH ×5 (06:46→22:06)
[2019-02-07] MEDS: PRILOSEC PO SCH (06:49)
[2019-02-07 06:54] LABS: BASO# 0.01 X1000 (0.0-0.2); BASO% 0.1 % (0.0-0.8); EOS# 0.22 X1000 (0.0-0.7); EOS% 2.5 % (0.0-10.0); HEMATOCRIT 39.3 % (42.0-52.0); HEMOGLOBIN 13.3 g/dL (14.0-18.0); IMM GRAN# 0.17 X1000 (0.0-0.04); LYMPH# 1.73 X1000 (1.2-3.4); LYMPH% 19.9 % (20.5-51.1); MCHC 33.8 g/dL (33-37); MCV 100.5 FL (81-99); MONO# 0.95 X1000 (0.11-0.59); MONO% 10.9 % (1.7-9.3); MPV 9.7 FL (7.4-10.4); NEUT% 64.6 % (42.2-75.2); PLT 209 X1000 (130-400); RBC 3.91 XMIL (4.7-6.1); RDW 13.6 % (11.5-14.5); WBC 8.68 X1000 (4.8-10.8)
[2019-02-07 07:41] LABS: AGAP 9; BUN 23 mg/dL (8-22); CHLORIDE 103 mmol/L (98-107); COSMO 280; CREATININE 0.7 mg/dL (0.7-1.2); ESTIMATED GFR > 60; GLUCOSE 83 mg/dL (70-104); POTASSIUM 4.2 mmol/L (3.5-5.1); SODIUM 139 mmol/L (136-145); TCO2 27 mmol/L (25-35)
[2019-02-07] MEDS: BROVANA NEB INH SCH ×2 (07:45→19:26)
[2019-02-07] MEDS: TUMS PO SCH ×3 (08:37→22:19)
[2019-02-07] MEDS: CELEBREX PO SCH (08:37)
[2019-02-07] MEDS: TESSALON PO SCH ×3 (08:37→22:19)
[2019-02-07] MEDS: PREDNISONE PO SCH (08:37)
[2019-02-07] MEDS: MYCOSTATIN SUSP PO SCH ×4 (08:38→22:19)
[2019-02-07] MEDS: LOVENOX SUBQ SCH (08:38)
[2019-02-07] MEDS: ROCEPHIN 1 GM in NS 50 ML IV SCH ×2 (14:16→17:55)
[2019-02-08] MEDS: DUONEB (A & A) INH SCH ×2 (03:50→08:52)
[2019-02-08] MEDS: PRILOSEC PO SCH (06:26)
[2019-02-08] MEDS: ATIVAN IV PRN (06:30)
[2019-02-08] MEDS: TYLENOL PO PRN (06:31)
[2019-02-08] MEDS: HUMULIN R SUBQ SCH (06:56)
[2019-02-08 07:59] VITALS: BP 108/75
[2019-02-08] MEDS: MYCOSTATIN SUSP PO SCH (08:36)
[2019-02-08] MEDS: LOVENOX SUBQ SCH (08:36)
[2019-02-08] MEDS: TESSALON PO SCH (08:36)
[2019-02-08] MEDS: CELEBREX PO SCH (08:36)
[2019-02-08] MEDS: TUMS PO SCH (08:36)
[2019-02-08] MEDS: PREDNISONE PO SCH (08:36)
[2019-02-08] MEDS: BROVANA NEB INH SCH (08:52)
[2019-02-08] MEDS ORDERED: BROVANA NEB ONE (08:58)
--- NOTE | 2019-02-08 10:59 | DISCHARGE SUMMARY ---
ADMISSION DATE: 01/22/2019 DISCHARGE DATE: 02/08/2019 DISCHARGE DIAGNOSES: 1. Pulmonary fibrosis. 2. Chronic obstructive pulmonary disease. 3. Acute on chronic hypoxic respiratory failure. 4. Alcohol abuse. CONSULTATIONS: I think Pulmonary. PROCEDURES: None. DIAGNOSTIC STUDIES: CT imaging: He had a CTA on admission which showed no PE, but increasing mediastinal lymphadenopathy, severe emphysema, worsening fibrosis. Maxillofacial CT was negative. Echocardiogram on the showed an EF of 65% with normal valves. No major pathology otherwise. HOSPITAL COURSE: The patient is a 58-year-old gentleman with alcohol history, who presents with progressive shortness of breath. Apparently, he has been hypoxic before and has just not invested in the oxygen. He has a history of alcohol use and persistent tobacco abuse despite pulmonary fibrosis, COPD, which was noted on his tests even in 2016, and has progressed since that point. He was placed on IV antibiotics and steroids. Pulmonary was consulted who recommended conservative management. He did have a right apical nodule 0.5 cm recommending outpatient PET scan. He had a 60 pack year history of smoking. The patient was continued to be observed. CT was analyzed but was negative for sinusitis. Dr. Ashton evaluated the patient and felt that lung transplant clinic may be an option for him, but unfortunately he does have persistent alcohol use. I do not know if he has primary insurance additionally, I do not think he does. In any case, he was persistently needing oxygen. His white count decreased to 10, it was 8.6 on the day of discharge. Basic was normal. Wheezing had resolved. Rales were persistent, but he was felt stable for discharge on the . We did set up home oxygen and he will need a lung transplant referral, but he has to be sober. Dr. Ashton states it looks like a year, I have heard 6 months though for hepatic transplant, but will also need to make sure he follows up with a physician. DISCHARGE MEDICATIONS: 1. DuoNeb q.4. 2. Klonopin 0.5 b.i.d. p.r.n. pain. 3. Lodine 300 p.o. b.i.d. p.r.n. pain. 4. Omnicef 300 b.i.d. for 7 days. 5. Prednisone taper. DISCHARGE CONDITION: Stable. 32 minute discharge. cc: Mark Rizvi MD
== END 2019-02-08 10:38 | disposition home health service (06) | DRG 196 ==
LOC: ED 15:45 → 4N 22:43 → SUATTDRO 22:43
PROVIDERS: ATTEND Internal Medicine
CPT/HCPCS: 70487; 71010; 71020; 71045; 71046; 71275; 80048; 80053; 81001; 82164; 82805; 82948; 83036; 83605; 83735; 83880; 84100; 84145; 84443; 84484; 85025; 85027; 85379; 85610; 85730; 87040; 87070; 87205; 93005; 93306; 94640; 94760; 94761; 96361; 96365; 96367; 96375; 99285; A9270; C9113; J0456; J0696; J1650; J2060; J2405; J2920; J3411; J3475; J7030; J7506; J7512; Q9967; S0164; XXXXX

== ENCOUNTER 2019-10-27 13:15 | Inpatient (IN) ==
[2019-10-27] MEDS ORDERED: DUONEB (A & A) INH ONE (13:53)
[2019-10-27] MEDS ORDERED: ALBUTEROL NEB INH ONE (13:53)
[2019-10-27] MEDS ORDERED: SOLU-MEDROL IV ONE (13:53)
[2019-10-27] MEDS ORDERED: PULMICORT INH ONE (13:53)
[2019-10-27 14:31] LABS: BASO# 0.05 X1000 (0.0-0.2); BASO% 0.6 % (0.0-0.8); EOS# 0.38 X1000 (0.0-0.7); EOS% 4.2 % (0.0-10.0); HEMATOCRIT 47.9 % (42.0-52.0); HEMOGLOBIN 16.4 g/dL (14.0-18.0); IMM GRAN# 0.02 X1000 (0.0-0.04); IMM GRAN% 0.2 % (0.0-0.5); LYMPH# 2.11 X1000 (1.2-3.4); LYMPH% 23.5 % (20.5-51.1); MCH 33.7 PG (27-31); MCHC 34.2 g/dL (33-37); MCV 98.6 FL (81-99); MONO# 0.73 X1000 (0.11-0.59); MONO% 8.1 % (1.7-9.3); MPV 9.7 FL (7.4-10.4); NEUT# 5.69 X1000 (1.4-6.5); NEUT% 63.4 % (42.2-75.2); PLT 290 X1000 (130-400); RBC 4.86 XMIL (4.7-6.1); RDW 14.1 % (11.5-14.5); WBC 8.98 X1000 (4.8-10.8)
[2019-10-27 14:49] LABS: AGAP 10; ALB/GLOB RATIO 0.7; ALBUMIN 2.9 g/dL (3.5-5.0); ALKALINE PHOSPHATASE 131 U/L (32-122); BUN 5 mg/dL (8-22); CALCIUM 8.7 mg/dL (8.8-10.2); CHLORIDE 101 mmol/L (98-107); COSMO 268; CREATININE 0.6 mg/dL (0.7-1.2); ESTIMATED GFR > 60; GLUCOSE 84 mg/dL (70-104); GOT 75 U/L (10-34); GPT 18 U/L (10-44); POTASSIUM 4.6 mmol/L (3.5-5.1); SODIUM 136 mmol/L (136-145); TCO2 25 mmol/L (25-35); TOTAL BILIRUBIN 0.75 mg/dL (0.20-1.00); TOTAL PROTEIN 7.1 g/dL (6.3-8.3)
--- NOTE | 2019-10-27 14:56 | Diag Imaging Result Doc PS360 ---
EXAM: CHEST-1 VIEW HISTORY: SOB TECHNIQUE: Single view COMPARISON: 02/04/2019 FINDINGS: The lungs are well expanded. There are increased interstitial markings diffusely in both lungs. These have a basilar predominance. No cardiomegaly. Tiny effusions versus pleural thickening. IMPRESSION: Emphysema with severe fibrosis. Electronically signed by Juan Alberto Antonio 10/27/2019 2:53 PM
--- NOTE | 2019-10-27 17:01 | Diag Imaging Result Doc PS360 ---
EXAM: CT ANGIOGRM PULMONARY ARTERIES HISTORY: difficulty breathing, left arm swollen TECHNIQUE: CT chest with intravenous contrast. Pulmonary two protocol with MIP images. COMPARISON: 01/22/2019 FINDINGS: No aortic aneurysm or dissection. Normal opacification of the pulmonary arteries and their branches. No cardiomegaly. There are enlarged mediastinal and hilar lymph nodes. These are similar to the prior exam. No cardiomegaly. Severe emphysema with fibrosis. No compression to the superior vena cava. No axillary adenopathy. Stable right upper lobe nodule/fibrosis IMPRESSION: 1.No pulmonary emboli 2.Severe emphysema with fibrosis 3.Stable enlarged mediastinal and hilar lymph nodes This exam was performed using automated exposure control, adjustment of mA or kV according to patient size, and/or use of iterative reconstruction technique. Electronically signed by Juan Alberto Antonio 10/27/2019 4:59 PM
--- NOTE | 2019-10-27 17:38 | PROVIDER DOCUMENTATION ---
This chart was entered by Bharath Layne Scribe, acting as scribe for Nuno Granados MD. HPI-General Adult - General Stated Complaint: SOB Time Seen by Provider: 10/27/19 13:47 Source: patient Allergies/Adverse Reactions: Patient Allergies Allergy/AdvReac Type Severity Reaction Status Date / Time No Known Allergies Allergy Verified 10/27/19 15:02 Home Medications: Home Medication List Medication Instructions Recorded Confirmed Last Taken Type Albuterol [Albuterol Neb] 2.5 mg INH Q4H PRN PRN #30 neb 09/06/19 10/27/19 Unknown Rx - History of Present Illness -Gen Adult Nature of Presenting Problems: 59 yom presents to the ed w/ c/o SOB. pt states onset past couple weeks but worse this AM. pt c/o coughing more than normally, pt has hx of COPD. pt c/o poss fever and reports sx chills. pt states no pcp. pt states "had couple visits here, but not seen anyone for sx recently." "cant find lung physician to see me." Location of Pain/Injury: reports: none Pain Radiation: reports: no radiation Quality of Pain: reports: none Severity: reports: mild Onset/Duration: reports: this morning (worse this AM), other (2/3 weeks) Timing: reports: still present Context/Activities at Onset: reports: none Modifying Factors: improves with: nothing Associated Symptoms: reports: fever/chills (pt states poss fever "felt like it" reports chills), shortness of breath. denies: arm pain, chest pain, diarrhea, sinus congestion/drainage, nausea, vomiting Similar Symptoms Previously?: No Recently seen or treated by another doctor?: No Review of Systems - Adult - REVIEW OF SYSTEMS - ADULT Constitutional: reports: see HPI, chills, fever. denies: fatique, night sweats Eyes: reports: no symptoms reported Ears, Nose, Mouth & Throat: denies: ear pain, sinus problem, throat pain Cardiovascular: denies: chest pain, palpitations Respiratory: reports: see HPI, cough, shortness of breath Gastrointestinal: reports: see HPI, abdominal pain. denies: diarrhea, nausea, vomiting Genitourinary: reports: no symptoms reported Musculoskeletal: reports: no symptoms reported Integumentary: reports: no symptoms reported Neurological: reports: no symptoms reported Psychiatric: reports: no symptoms reported Endocrine: reports: no symptoms reported Hematologic/Lymphatic: reports: no symptoms reported Allergic/Immunologic: reports: no symptoms reported All Other Systems: Reviewed and Negative Past History - Adult - PAST MEDICAL HISTORY-ADULT Review of Records: reports: Old Records Reviewed, Nursing Assessment Review, Medications Reviewed, Social history reviewed & non-contributory. 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 ) Obstetrical/Gynecological: reports: denies history Genitourinary: reports: denies history Musculoskeletal: reports: denies history Neurological: reports: denies history Psychiatric: reports: denies history Endocrine/Immune: reports: denies history Other Conditions: reports: denies history - PRIOR SURGERIES/PROCEDURES Surgical/Procedure History: reports: colonoscopy, tonsillectomy, orthopedic (extremity) (TKA) - IMMUNIZATION STATUS Childhood Immunizations: See Nurse Assessment Flu Vaccine: See Nurse Assessment - FAMILY HISTORY Family History: reviewed, not pertinent - SOCIAL HISTORY Smoking: denies Substance Use: alcohol Alcohol Use Frequency: rarely (little) Physical Exam-General - PHYSICAL EXAM-ADULT Initial Vital Signs Reviewed: Yes - CONSTITUTIONAL General Appearance: appears well, alert, mild distress - EYES Eyes: PERRL/EOMI - HEAD, EARS, NOSE, MOUTH & THROAT HENMT: pharynx normal - RESPIRATORY Respiratory: chest non-tender, decreased breath sounds - CARDIOVASCULAR Cardiovascular: normal peripheral pulses, regular rate, rhythm - GENITOURINARY Male Genitalia: deferred Rectal Exam: deferred Hemoccult Exam: deferred - MUSCULOSKELETAL Back Exam: normal inspection Extremity: normal inspection (no edema), other (clubby finger tips) - PSYCHIATRIC Psych/Mental Status: normal mood/affect, normal thought content, normal thought process, oriented x 3 Progress - PLAN OF CARE/RESULTS Result Diagrams: 10/27/19 14:20 10/27/19 14:20 - REASSESSMENT Reassessment #1 Time Reassessed: 17:20 (family says that sats in 70's on 5L setting per his concentrator, is not getting prescribed meds, has no doctors) Status: unchanged - EKG 1 Time of EKG reading by physician:: 13:40 EKG Read and Signed by:: Nuno Granados EKG Interpretation (*Must complete 3 of following elements*): Abnormal Rate: 87 Rhythm: NSR QRS: other (Low voltage QRS) FL Interval: normal ST Wave: normal Comments: nonspecific ST & T abnormality/Prolonged QT - XRAY 1 XRAY Study: Chest Impression: See EMR Report ( EXAM: CHEST-1 VIEW HISTORY: SOB TECHNIQUE: Single view COMPARISON: 02/04/2019 FINDINGS: The lungs are well expanded. There are increased interstitial markings diffusely in both lungs. These have a basilar predominance. No cardiomegaly. Tiny effusions versus pleural thickening. IMPRESSION: Emphysema with severe fibrosis. Electronically signed by Juan Alberto Antonio 10/27/2019 2:53 PM 10/27/19 9023 Interpreting Physician: Juan Alberto Antonio MD Dictated Date/Time: 10/27/19 666 cc: Nuno Granados MD; None,PCP) - CT/MRI 1 CT Study: other (pulmanary arteriogram) Impression: See EMR Report ( EXAM: CT ANGIOGRM PULMONARY ARTERIES HISTORY: difficulty breathing, left arm swollen TECHNIQUE: CT chest with intravenous contrast. Pulmonary two protocol with MIP images. COMPARISON: 01/22/2019 FINDINGS: No aortic aneurysm or dissection. Normal opacification of the pulmonary arteries and their branches. No cardiomegaly. There are enlarged mediastinal and hilar lymph nodes. These are similar to the prior exam. No cardiomegaly. Severe emphysema with fibrosis. No compression to the superior vena cava. No axillary adenopathy. Stable right upper lobe nodule/fibrosis IMPRESSION: 1.No pulmonary emboli 2.Severe emphysema with fibrosis 3.Stable enlarged mediastinal and hilar lymph nodes This exam was performed using automated exposure control, adjustment of mA or kV according to patient size, and/or use of iterative reconstruction technique. Electronically signed by Juan Alberto Antonio 10/27/2019 4:59 PM 10/27/19 3119 Interpreting Physician: Juan Alberto Antonio MD Dictated Date/Time: 10/27/19 [id number] cc: Nuno Granados MD; None,PCP) - CONSULTS/PCP/HOSPITALIST Notification #1 *Consult/PCP/Hospitalist*: consult w/ wilmer Time Discussed: 17:27 Consult Disposition: Admit Departure - Departure Date of Disposition Decision: 10/27/19 Time of Disposition Decision: 17:25 DIAGNOSIS: Respiratory insufficiency, Pulmonary fibrosis Disposition: ADMITTED INPATIENT 09 Certified Medical Emergency: Emergent Condition: Fair Referrals and Follow-Ups: None,PCP [Primary Care Provider] - - Critical Care Note This patient required my direct & personal management of CC.: No Attestation - Physician/ CHARLETTE Attestation Patient care was provided by Advanced Practice Provider:: No The physician spent face to face time with patient:: Yes Advanced Practice Provider documentation review:: Supervising physician onsite and consulted in the evaluation and care of this patient. The physician did have a face to face encounter with the patient. This chart was documented by the indicated scribe, (Bharath Layne, Scribe) and accurately reflects the services I performed and decisions made by me, Nuno Granados MD, as attested by the provider's signature.
[2019-10-27] MEDS ORDERED: ZITHROMAX 500 MG/NS 500 MG/250 ML IVPB IV SCH (20:39)
[2019-10-27] MEDS ORDERED: ZOFRAN IV PRN (20:39)
[2019-10-27] MEDS ORDERED: TAMIFLU PO ONE (20:39)
[2019-10-27] MEDS ORDERED: TYLENOL PO PRN (20:39)
[2019-10-27] MEDS ORDERED: ROCEPHIN 1 GM in NS 50 ML IV SCH (20:39)
[2019-10-27] MEDS ORDERED: M.V.I.-12 10 ML, FOLIC ACID 1 MG, MAGNESIUM SULFATE 1 GM, THIAMINE 100 MG in NS 1,000 ML IV ONE (20:39)
[2019-10-27] MEDS ORDERED: DUONEB (A & A) INH PRN (20:39)
[2019-10-27] MEDS ORDERED: ATIVAN IV PRN (20:39)
[2019-10-27] MEDS: TAMIFLU PO SCH (21:00)
[2019-10-27] MEDS: THIAMINE 100 MG in NS 50 ML IV SCH (21:09)
[2019-10-27] MEDS: SOLU-MEDROL IV SCH (21:13)
[2019-10-27] MEDS: LIBRIUM PO SCH (21:13)
[2019-10-27] MEDS: NORCO-7.5 PO PRN (21:16)
--- NOTE | 2019-10-27 22:23 | HISTORY AND PHYSICAL ---
PRIMARY CARE PROVIDER: None. ORGANIC CHEMISTRY PROFESSOR: None. CHIEF COMPLAINT: Shortness of breath, fever, chills. HISTORY OF PRESENT ILLNESS: Mr. Appiah is a cachetic-looking 59-year-old male with a past medical history of COPD, worsening pulmonary fibrosis I believe nearing end-stage, daily alcohol use with 1 pint of whiskey a day. He is currently on home O2 with a concentrator. He only has leftover nebulizers from his last discharge. He will take [id number] Benadryl and Sudafed when he has it and family members Klonopin when it is available, chronic hypoxemic respiratory failure. The patient and family reports over the past week he has had an increase in his shortness of breath, but it has really increased over the past 2 days especially with exertion. He also reports fever and chills over the past 2 to 3 days. He has been exposed to flu and strep by his grandchildren. His O2 levels have been in the 70s at home. He does have a chronic cough that is productive. Workup in the ED revealed a white count of 8, a chronically elevated D-dimer and pulmonary arteriogram was performed that showed no PE, severe emphysema with fibrosis and stable enlarged mediastinal and hilar lymph nodes. His oxygen level upon arrival was 86% on 2 L. Currently on 50% Venti mask saturating in the 90s. He is currently wishing to be a full code. He knows he is not a candidate for a lung transplant because of his daily drinking. His only wish to be a full code is he is afraid that his children will not get to tell him goodbye. He knows if he goes on a ventilator that he will never come off of it. We will consult Palliative Care to continue further talks and in-depth education as well as goals of care and pulmonology as well. We will go ahead and check a flu and strep since he has been exposed to both as well as other family members in the room. PAST MEDICAL HISTORY: Per HPI. PAST SURGICAL HISTORY: Tonsillectomy, left knee surgery, sinus surgery. HOME MEDICATIONS: Left over nebulizers, Benadryl and Sudafed when he has it and family members Klonopin when they have it. FAMILY HISTORY: Most notable for COPD, diabetes, but no heart disease. SOCIAL HISTORY: He drinks a pint of whiskey a day. He reports he quit smoking 25 years ago. No recreational drug use. He lives with family. LABORATORY DATA: Diagnostic data per HPI. PHYSICAL EXAMINATION: VITAL SIGNS: Initial O2 was 82% on 2 L. He is now on 50% Venti mask, saturating 97%. Hemodynamically stable. GENERAL: Mr. Appiah is a cachectic but pleasant 59-year-old male sitting up in the bed. HEENT: Atraumatic, normocephalic. PERRL. NECK: Supple. Trachea midline. CARDIOVASCULAR: S1, S2 appreciated. He is tachycardic. No murmurs, gallops, or rubs noted. RESPIRATORY: Lung sounds, there are some crepitations, really no wheezes. Decreased airway entry both lung williamson. EXTREMITIES: Negative for edema. NEUROLOGIC: No focal deficits noted. SKIN: Did not appreciate any breakdown. ASSESSMENT AND PLAN: 1. Chronic obstructive pulmonary disease, emphysema exacerbation with probable end-stage pulmonary fibrosis. We will place him on supplemental O2, bronchodilators, aggressive pulmonary toilet, IV antibiotics, IV steroids, consult Pulmonology as well as Palliative Care. The patient wishes to be a full code and intubated only so his family can say goodbye to him. Continue further talks of goals of care. 2. Questionable pneumonia. The patient complains of fever and chills. However, he has also been exposed to strep and flu recently as well as both family members at the bedside. We are checking for both of those as well. We have started him on Rocephin and azithromycin empirically for the time being. We can also stop those in the a.m. 3. Alcohol abuse. We started him on Librium, daily banana bag. We will follow his electrolytes closely and watch him closely for any withdrawal. Continue him on a proton pump inhibitor. 4. Acute on chronic hypoxemic respiratory failure. Continue supplemental O2. 5. Further recommendation to follow physician evaluation, laboratory and diagnostic data. Dictated by ZEINA Sims for Harrison Francois MD cc: MD Barrett Xavier MD
[2019-10-27] MEDS: DUONEB (A & A) INH SCH ×2 (23:14→23:25)
[2019-10-28] MEDS: XANAX PO PRN ×3 (01:28→23:53)
[2019-10-28] MEDS: SOLU-MEDROL IV SCH ×4 (02:31→20:14)
[2019-10-28] MEDS: LIBRIUM PO SCH ×4 (02:31→20:14)
[2019-10-28] MEDS: DUONEB (A & A) INH SCH ×6 (03:31→23:08)
--- NOTE | 2019-10-28 04:41 | HISTORY AND PHYSICAL ---
HISTORY OF PRESENT ILLNESS: I have seen and examined Mr. Appiah today, the son and the daughter-in- law were both at the bedside at the time of the encounter. I understand Mr. Appiah's household has multiple cases of flu and strep throat. In any case he is known to have an end-stage COPD, does not follow up with any medical care. He was brought to the emergency room because of worsening shortness of breath and cough. Upon presentation he was found to have an O2 saturation of 96% even on 2 L of nasal cannula. PHYSICAL EXAMINATION: VITALS SIGNS: Blood pressure is 111/79, pulse of 83, respirations 26, temperature is 97.6 degrees, the patient is saturating 97% on Venturi mask. GENERAL: Remarkable for cachexia in a chronically ill-looking gentleman with a BMI of 17.4. He was on a Venturi mask. HEENT: Mucosa is pink and moist. Anicteric. Acyanotic. NECK: Supple. CHEST: Air entry was bilaterally reduced. The patient was hardly moving air. Some distant expiratory wheezing, but no crackles. CARDIOVASCULAR: Regular rate and rhythm. LABORATORY DATA: Has also been reviewed. So far a CBC and chemistry are all unremarkable. The CTA of the lungs shows no pulmonary emboli. There is severe emphysema with fibrosis. There is also stable and large mediastinal and hilar lymph nodes. ASSESSMENT AND PLAN: 1. Acute on chronic hypoxemic respiratory failure. 2. Severe end-stage COPD with exacerbation. 3. Recently exposed to influenza and strep throat. The patient will be will be empirically treated for flu as well. The serology for flu is still pending, but I think never the less the patient will need to be treated for it due to the exposure history. Please refer to the details of the history and physical that has been dictated by the ARMORING MACHINE OPERATOR in the chart. I have discussed the plan with her. cc: Harrison Francois MD
[2019-10-28 05:55] LABS: HEMATOCRIT 42.8 % (42.0-52.0); HEMOGLOBIN 14.4 g/dL (14.0-18.0); LYMPH# 0.47 X1000 (1.2-3.4); LYMPH% 12.7 % (20.5-51.1); MCH 33.6 PG (27-31); MCHC 33.6 g/dL (33-37); MCV 99.8 FL (81-99); MONO# 0.09 X1000 (0.11-0.59); MONO% 2.4 % (1.7-9.3); MPV 9.9 FL (7.4-10.4); NEUT# 3.14 X1000 (1.4-6.5); NEUT% 84.9 % (42.2-75.2); PLT 236 X1000 (130-400); RBC 4.29 XMIL (4.7-6.1); RDW 13.8 % (11.5-14.5)
[2019-10-28] MEDS: PROTONIX PO SCH (06:24)
[2019-10-28 06:34] LABS: AGAP 13; ALB/GLOB RATIO 0.7; ALBUMIN 2.6 g/dL (3.5-5.0); ALKALINE PHOSPHATASE 112 U/L (32-122); BUN 8 mg/dL (8-22); CHLORIDE 102 mmol/L (98-107); COSMO 280; CREATININE 0.6 mg/dL (0.7-1.2); ESTIMATED GFR > 60; GLUCOSE 201 mg/dL (70-104); GOT 56 U/L (10-34); GPT 14 U/L (10-44); POTASSIUM 3.8 mmol/L (3.5-5.1); SODIUM 138 mmol/L (136-145); TCO2 23 mmol/L (25-35); TOTAL BILIRUBIN 0.49 mg/dL (0.20-1.00); TOTAL PROTEIN 6.3 g/dL (6.3-8.3)
--- NOTE | 2019-10-28 07:22 | Diag Imaging Result Doc PS360 ---
EXAM: CHEST-PORTABLE 10/28/2019 HISTORY: short of breath TECHNIQUE: AP portable at 0530 COMMENT: There is diffuse coarse interstitial opacity with finer opacification in the lower lung williamson. This is not changed appreciably since 10/27/2019, and is not particularly changed since 02/04/2019. There is worsening with respect to the coarser opacities since the previous study of 04/12/2016. IMPRESSION: Pulmonary fibrosis. Electronically signed by Tay Porter 10/28/2019 7:20 AM
--- NOTE | 2019-10-28 07:33 | EKG Report ---
Test Performed on : 10/27/2019 1:40:41 PM Test Reason : SOB Blood Pressure : / mmHG Vent. Rate : 087 BPM Atrial Rate : 087 BPM P-R Int : 132 ms QRS Dur : 074 ms QT Int : 386 ms P-R-T Axes : 040 080 023 degrees QTc Int : 464 ms Normal sinus rhythm. Low voltage QRS Nonspecific ST and T wave abnormality Prolonged QT Abnormal ECG When compared with ECG of 22-JAN-2019 16:00, T wave inversion now evident in Anterior leads Unconfirmed Result
[2019-10-28] MEDS: TAMIFLU PO SCH ×2 (08:41→20:14)
[2019-10-28] MEDS: DOXYCYCLINE 100 MG in NS 250 ML IV SCH ×2 (12:42→23:53)
[2019-10-28] MEDS: NORCO-7.5 PO PRN ×2 (15:29→23:53)
[2019-10-28] MEDS ORDERED: TUMS PO PRN (15:48)
--- NOTE | 2019-10-28 16:21 | PROGRESS NOTE ---
DATE: 10/28/2019 SUBJECTIVE: This morning Mr. Appiah refers to be doing slightly better, but still with a lot of cough and shortness of breath. OBJECTIVE: Vital Signs: Blood pressure is 103/65, pulse of 112, respirations 19, temperature 98.1 degrees. General: Mr. Appiah is a 59-year-old gentleman. He is in bed, with mild respiratory distress. HEENT: Mucosa is pink and moist. He looks cachectic. Chest: Air entry is bilaterally reduced. There is still diffuse and expiratory wheezing and some crackles. Cardiovascular: Regular rate and rhythm. No murmurs, no rubs, no gallops. Gastrointestinal: Abdomen is soft. Extremities: No pedal edema. Distal pulses present. Central Nervous System: Patient was awake, alert, and oriented. Follows basic commands. LABORATORY DATA: WBC is 3.7, hemoglobin is 14.4, platelet count of 236,000. Chemistry is also reviewed, is unremarkable except for glucose of 201. Microbiology, flu is negative. Strep is negative. Sputum is still pending final culture. MEDICATIONS: The patient is currently on antibiotics, steroids, bronchodilation therapy. ASSESSMENT AND PLAN: 1. Acute on chronic hypoxemic respiratory failure. Mr. Appiah is on home oxygen by concentrator. He does not really follow up much. He is currently on Ventimask for adequate saturation. 2. End-stage chronic obstructive pulmonary disease with moderate to severe exacerbation. The patient is on standard of care. We will get Pulmonary Medicine to evaluate him as well. 3. Recently exposure to influenza at home. The patient has been started prophylactically on Tamiflu despite his serology is negative. 4. Pulmonary cachexia, noted. 5. Alcohol use and abuse. The patient has been counseled. He is being started prophylactically on vitamin replacement. SUMMARY: In general, Mr. Appiah is a 59-year-old gentleman who is known to have end- stage COPD. He does not normally follow up with any account manager. Comes in with severe respiratory distress and COPD exacerbation. He has made very minimal progress overnight. We are going to consult Pulmonary Medicine to evaluate him as well. We are pending his sputum culture, and he has been started on standard care. cc: Harrison Francois MD
[2019-10-28] MEDS: THIAMINE 100 MG in NS 50 ML IV SCH (20:14)
[2019-10-28] MEDS: MAXIPIME 1 GM in NS 50 ML IV SCH (20:18)
--- NOTE | 2019-10-28 23:14 | PULMONOLOGY CONSULTATION ---
DATE: 10/28/2019 HISTORY OF PRESENT ILLNESS: The patient is a 59-year-old white male with extensive tobacco history, severe fibro-emphysematous changes on CT scan suggesting endstage lung disease, and alcohol abuse with ongoing alcohol use. He presented to the emergency room yesterday complaining of increasing shortness of breath and increasing purulent sputum production, with fevers and chills. He did not check a temperature. He is not taking his prescribed medications because he reports he does not have a doctor. Last albuterol dose was filled in August. He underwent a CT pulmonary angiogram in the emergency room, which revealed stable mediastinal and hilar nodes when compared to 01/22/2019. He has severe emphysematous disease with a component of fibrosis. He also has a nodule identified in the right upper lobe which is unchanged. The patient was evaluated by Dr. Martinez at his visit in January of last year, who recommended outpatient PET scan of this nodule. The patient did not follow up with Dr. Martinez as an outpatient. PAST MEDICAL HISTORY: 1. Severe endstage lung disease/emphysema/component of fibrosis, as outlined above. 2. Alcohol abuse. 3. Noncompliance with medications. 4. History of left knee surgery. 5. Status post tonsillectomy. 6. Prior sinus surgery. SOCIAL HISTORY: Prior tobacco use, but none recently. The patient continues to drink a pint of whiskey per day. He reports that this is actually cutting back for him. FAMILY HISTORY: Positive for diabetes and COPD. REVIEW OF SYSTEMS: As noted in the HPI. PHYSICAL EXAMINATION: Physical exam reveals a thin, chronically ill-appearing male, resting comfortably and in no distress. Blood pressure 105/79, heart rate 116, respiratory rate 20, oxygen saturation 98% on venturi mask. HEENT: Pupils are equal and reactive. Oropharynx is clear. Neck is supple. Chest reveals coarse rhonchi, with prolonged expiratory phase bilaterally. Cardiac exam: S1, S2. Abdomen is soft. Extremities without edema. IMPRESSION: A 59-year-old with: 1. Chronic obstructive pulmonary disease exacerbation. 2. Endstage lung disease suggested by CT scan. 3. Alcohol abuse. 4. Noncompliance with medications. 5. Component of bronchiectasis suspected, on looking at CT scan. 6. Solitary pulmonary nodule, without change since January of last year. DISCUSSION: A 59-year-old with problems outlined above. The patient has not taken any of his bronchodilators since he ran out of medicines in early September. The patient reports he has no physician, but as a Medicaid patient he has an assigned physician, but he does not know who it is. The patient continues to drink significant alcohol, which will mean he will not be a candidate for a lung transplantation. With his radiographic findings, he likely has a component of bronchiectasis and will more than likely have a pathogen such as pseudomonas. RECOMMENDATIONS: 1. Increase antibiotic coverage to cover for Pseudomonas aeruginosa. 2. Continue bronchodilators. 3. Suggest weaning steroids as tolerated. 4. Continue to empirically treat for alcohol withdrawal as you are doing. 5. Ask healthcare social worker to identify his primary care physician. It should be available from Medicaid. 6. Encourage patient to discontinue alcohol. Alcohol will suppress his immune system, making it more difficult to control his lung disease. cc: Barrett Ashton MD
[2019-10-29] MEDS: SOLU-MEDROL IV SCH ×4 (03:25→20:26)
[2019-10-29] MEDS: LIBRIUM PO SCH ×4 (03:25→20:26)
[2019-10-29] MEDS: DUONEB (A & A) INH SCH ×6 (03:43→22:45)
[2019-10-29] MEDS: MAXIPIME 1 GM in NS 50 ML IV SCH ×2 (06:35→20:26)
[2019-10-29] MEDS: PROTONIX PO SCH (06:35)
--- NOTE | 2019-10-29 07:30 | Diag Imaging Result Doc PS360 ---
CHEST-PORTABLE - 10/29/2019 INDICATION: dyspnea COMPARISON: 10/28/2019 FINDINGS: Stable coarse interstitial opacities diffusely and bilaterally. No new infiltrates. Heart size remains grossly normal. No pneumothorax or large pleural effusion. Lung volumes are adequate. IMPRESSION: No change from prior. Severe pulmonary fibrosis. Electronically signed by Agusto Mcdowell 10/29/2019 7:28 AM
[2019-10-29] MEDS: TAMIFLU PO SCH ×2 (08:22→20:26)
[2019-10-29] MEDS: XANAX PO PRN ×2 (08:29→20:35)
[2019-10-29] MEDS: NORCO-7.5 PO PRN ×2 (08:29→20:35)
--- NOTE | 2019-10-29 09:05 | PROGRESS NOTE ---
DATE: 10/29/2019 SUBJECTIVE: The patient reports still feeling shortness of breath, better in comparing with admission, but that symptom is still present. OBJECTIVE: Vital Signs: Temperature 98.2 degrees, heart rate 97, respiratory rate 18, blood pressure 95/58, O2 saturation 98% on Venturi mask at 50%. General: This is a chronically ill- appearing and malnourished, 59-year-old, male, lying in bed in no acute distress. Cardiovascular: S1, S2 heard. No murmurs, gallops, or rubs. Regular rate and rhythm. Respiratory: Wheezing all over both pulmonary williamson, anteriorly and posteriorly. The patient is not using any accessory muscles or having work of breathing. Abdomen: Soft. Nontender to palpation. Bowel sounds present. No organomegaly. Extremities: No clubbing, cyanosis, or edema. Peripheral pulses present in both legs. Neurological: The patient is awake and alert. Moves all 4 extremities. LABORATORY DATA: There are no labs from today. Influenza A and B are negative. ASSESSMENT AND PLAN: 1. Acute on chronic hypoxemic respiratory failure. The patient continues to require oxygen by Ventimask. Still complaining of shortness of breath. Will continue with current medications. 2. End-stage chronic obstructive pulmonary disease with [id number] exacerbation. Unfortunately, this patient is not improving enough. Will continue with current management, including antibiotics, in this case, doxycycline and cefepime for coverage of Pseudomonas. Pulmonary has been consulted. This patient may have developed also bronchiectasis. Will follow recommendations from Pulmonary. 3. Recent exposure to influenza at home. Because the test returned negative, we are going to stop Tamiflu. 4. Pulmonary cachexia. Noted. 5. Alcohol use and abuse. The patient again has been counseled to stop drinking alcohol. He has been warned that this alcohol will definitely impair his immune system. The patient acknowledged understanding. 6. Disposition. Will continue to monitor this patient closely. cc: Fernandez Ortiz MD
[2019-10-29] MEDS: DOXYCYCLINE 100 MG in NS 250 ML IV SCH (12:27)
[2019-10-29] MEDS: THIAMINE 100 MG in NS 50 ML IV SCH (20:26)
--- NOTE | 2019-10-30 00:59 | PULMONOLOGY PROGRESS NOTE ---
DATE: 10/29/2019 SUBJECTIVE: The patient is awake and alert. He continues to have copious amounts of purulent sputum. OBJECTIVE: Vital Signs: The patient has been afebrile for the last 24 hours. Blood pressure 107/68, heart rate 105, respiratory rate 16, oxygen saturation 97%. HEENT: Pupils are equal and reactive. Oropharynx appears clear. Neck: Supple. Chest: Reveals coarse rhonchi bilaterally. Cardiac: Normal S1, no S2. Abdomen: Soft. Extremities: Without edema. LABORATORIES: Chest x-ray reveals diffuse coarse infiltrates bilaterally without change. IMPRESSION: A 59-year-old with 1. Chronic obstructive pulmonary disease exacerbation. 2. Bronchiectasis exacerbation. 3. Alcohol abuse. 4. Noncompliance with medications. 5. Solitary pulmonary nodule. PLAN: 1. Continue current antibiotic regimen. 2. Continue bronchodilators. 3. Encourage patient to discontinue alcohol use, which is likely suppressing his immune system. 4. Encourage p.o. intake. 5. Continue to follow for signs of alcohol withdrawal. We will also check magnesium and phosphorus levels in the event he is having refeeding syndrome. cc: Barrett Ashton MD
[2019-10-30] MEDS: DOXYCYCLINE 100 MG in NS 250 ML IV SCH ×2 (01:00→15:24)
[2019-10-30] MEDS: SOLU-MEDROL IV SCH ×4 (03:33→20:04)
[2019-10-30] MEDS: LIBRIUM PO SCH ×4 (03:33→20:04)
[2019-10-30] MEDS: DUONEB (A & A) INH SCH ×6 (03:46→23:22)
[2019-10-30] MEDS: PROTONIX PO SCH (06:04)
[2019-10-30 06:37] LABS: MAGNESIUM 1.4 mg/dL (1.5-2.7); PHOSPHORUS 2.4 mg/dL (2.7-4.5)
[2019-10-30 06:41] LABS: AGAP 7; BUN 12 mg/dL (8-22); CALCIUM 8.1 mg/dL (8.8-10.2); CHLORIDE 104 mmol/L (98-107); COSMO 277; CREATININE 0.5 mg/dL (0.7-1.2); ESTIMATED GFR > 60; GLUCOSE 131 mg/dL (70-104); SODIUM 138 mmol/L (136-145); TCO2 27 mmol/L (25-35)
[2019-10-30 06:42] LABS: HEMATOCRIT 36.3 % (42.0-52.0); HEMOGLOBIN 12.7 g/dL (14.0-18.0); IMM GRAN# 0.05 X1000 (0.0-0.04); IMM GRAN% 0.4 % (0.0-0.5); LYMPH# 0.64 X1000 (1.2-3.4); LYMPH% 4.9 % (20.5-51.1); MONO# 0.63 X1000 (0.11-0.59); MONO% 4.9 % (1.7-9.3); MPV 9.9 FL (7.4-10.4); NEUT# 11.61 X1000 (1.4-6.5); NEUT% 89.8 % (42.2-75.2); PLT 235 X1000 (130-400); RBC 3.63 XMIL (4.7-6.1); RDW 13.9 % (11.5-14.5); WBC 12.93 X1000 (4.8-10.8)
[2019-10-30 07:26] LABS: LYMPHS 5 % (21-51); MONO 4 % (1-9); SEGS 91 % (42-75)
[2019-10-30] MEDS ORDERED: MAGNESIUM SULFATE 2 GM/S.W.I. 2 GM/50 ML IVPB IV ONE (07:30)
[2019-10-30] MEDS: MAXIPIME 1 GM in NS 50 ML IV SCH ×2 (07:50→20:52)
[2019-10-30] MEDS: XANAX PO PRN (08:10)
[2019-10-30] MEDS: NORCO-7.5 PO PRN ×2 (08:10→15:49)
[2019-10-30] MEDS ORDERED: SODIUM PHOSPHATE 35 MMOL in NS 250 ML IV ONE (08:30)
--- NOTE | 2019-10-30 09:49 | PROGRESS NOTE ---
DATE: 10/30/2019 SUBJECTIVE: Patient reports feeling fine. Reports breathing better. OBJECTIVE: Vital Signs: Temperature 98.1 degrees, heart rate 98, respiratory rate 20, blood pressure 117/82, O2 saturation 100% on 5 L nasal cannula. General Examination: This is a chronically ill-looking and malnourished, 59-year-old, male, lying in bed, in no acute distress. Cardiovascular Examination: S1 and S2 heard. No murmurs, gallops, or rubs. Regular rate and rhythm. Respiratory Examination: Less wheezing noted in both pulmonary williamson, anterior and posterior. Patient is not using any accessory muscles or having work of breathing. Abdomen: Soft. Nontender to palpation. Bowel sounds present. No organomegaly. Extremities: No clubbing, cyanosis, or edema. Peripheral pulses present in both legs. Neurological Examination: The patient is alert and oriented x3. Moves 4 extremities. Laboratory Data: Reviewed. ASSESSMENT AND PLAN: 1. Acute on chronic hypoxemic respiratory failure. Patient still requires oxygen but now he is requiring 5 L of oxygen by nasal cannula. He uses it at home too. His shortness of breath is definitely better, according to him. At this point, we will continue with breathing treatments and intravenous steroids. 2. End-stage chronic obstructive pulmonary disease with [id number] exacerbation. We will continue with the current treatment. He is on doxycycline and cefepime. We will continue with the same management. Pulmonary is following this patient. We will follow recommendations. 3. Pulmonary cachexia, noted. 4. Alcohol use and abuse. Aware. The patient advised to stop drinking alcohol. 5. Disposition. We will continue to monitor this patient closely. Most likely, will need to stay 1 to 2 more days. cc: Feranndez Ortiz MD
[2019-10-30] MEDS: THIAMINE 100 MG in NS 50 ML IV SCH (20:04)
[2019-10-31] MEDS: SOLU-MEDROL IV SCH ×4 (03:36→20:55)
[2019-10-31] MEDS: LIBRIUM PO SCH ×4 (03:36→20:54)
[2019-10-31] MEDS: DOXYCYCLINE 100 MG in NS 250 ML IV SCH ×2 (03:36→15:32)
[2019-10-31] MEDS: DUONEB (A & A) INH SCH ×6 (03:38→23:50)
[2019-10-31] MEDS: NORCO-7.5 PO PRN ×3 (03:42→22:38)
[2019-10-31 07:16] LABS: BASO# 0.01 X1000 (0.0-0.2); BASO% 0.1 % (0.0-0.8); HEMATOCRIT 37.2 % (42.0-52.0); HEMOGLOBIN 12.5 g/dL (14.0-18.0); IMM GRAN# 0.06 X1000 (0.0-0.04); IMM GRAN% 0.7 % (0.0-0.5); LYMPH# 0.56 X1000 (1.2-3.4); LYMPH% 6.4 % (20.5-51.1); MCH 34.5 PG (27-31); MCHC 33.6 g/dL (33-37); MCV 102.8 FL (81-99); MONO# 0.51 X1000 (0.11-0.59); MONO% 5.9 % (1.7-9.3); MPV 10.4 FL (7.4-10.4); NEUT# 7.56 X1000 (1.4-6.5); NEUT% 86.9 % (42.2-75.2); PLT 224 X1000 (130-400); RBC 3.62 XMIL (4.7-6.1)
[2019-10-31 07:36] LABS: AGAP 8; ALBUMIN 2.7 g/dL (3.5-5.0); BUN 12 mg/dL (8-22); CALCIUM 8.2 mg/dL (8.8-10.2); CHLORIDE 104 mmol/L (98-107); COSMO 282; CREATININE 0.6 mg/dL (0.7-1.2); ESTIMATED GFR > 60; GLUCOSE 182 mg/dL (70-104); MAGNESIUM 1.6 mg/dL (1.5-2.7); PHOSPHORUS 2.7 mg/dL (2.7-4.5); POTASSIUM 3.5 mmol/L (3.5-5.1); SODIUM 139 mmol/L (136-145); TCO2 27 mmol/L (25-35)
[2019-10-31] MEDS: PROTONIX PO SCH (08:38)
[2019-10-31] MEDS: MAXIPIME 1 GM in NS 50 ML IV SCH ×2 (08:38→20:54)
[2019-10-31] MEDS: XANAX PO PRN ×2 (08:38→20:54)
--- NOTE | 2019-10-31 10:34 | PROGRESS NOTE ---
DATE: 10/31/2019 SUBJECTIVE: The patient reports he is fine although he continues to require high amount of oxygen. OBJECTIVE: Vital Signs: Temperature 98.2 degrees, heart rate 115, respiratory rate 20, blood pressure 134/80, O2 saturation 92% on Venturi mask at 50%. General: This is a chronically ill- looking and malnourished 59-year-old male, lying in bed in no acute distress. Cardiovascular: S1 and S2 heard. No murmurs, gallops, or rubs. Regular rate and rhythm. Respiratory: Wheezing noticed in both pulmonary williamson anterior and posterior. The patient is not using any accessory muscles or having work of breathing. Abdomen: Soft, nontender to palpation. Bowel sounds present. No organomegaly. Extremities: No clubbing, cyanosis, or edema. Peripheral pulses present in both legs. Neurological: The patient is alert and oriented x3. Moves all 4 extremities. LABORATORY DATA: Reviewed. ASSESSMENT AND PLAN: 1. Acute on chronic hypoxemic respiratory failure secondary to end-stage chronic obstructive pulmonary disease exacerbation. The patient unfortunately continues to require high amounts of oxygen. The patient continues to be short of breath. I think his COPD, as we mentioned before, is very advanced. Patient is receiving doxycycline and cefepime for possible Pseudomonas infection. Also, receiving breathing treatment every 4 hours as well. At this point, patient is not really improving. We have talked with palliative care team to get a hospice consult. The patient agreed with the plan of going home with hospice. As soon as everything is arranged for him, he can be discharged. 2. Pulmonary cachexia noted. 3. Alcohol use and abuse. Patient advised to stop drinking alcohol. 4. Disposition: We will continue to monitor this patient closely. cc: Fernandez Ortiz MD
[2019-10-31] MEDS: THIAMINE 100 MG in NS 50 ML IV SCH (20:45)
--- NOTE | 2019-11-01 01:00 | PULMONOLOGY PROGRESS NOTE ---
DATE: 10/31/2019 SUBJECTIVE: The patient is awake, alert. He reports his sputum production has significantly decreased. His oxygen requirements are decreasing. OBJECTIVE: Vital Signs: The patient has been afebrile for the last 24 hours. Blood pressure 124/77, heart rate 105, respiratory rate 20, oxygen saturation 97%. HEENT: Pupils are equal and reactive. Oropharynx appears clear. Neck: Supple. Chest: Reveals coarse crackles bilaterally. Cardiac: S1-S2. Abdomen: Soft. Extremities: Reveal trace to 1+ peripheral. IMPRESSION: A 59-year-old with: 1. Chronic obstructive pulmonary disease exacerbation. 2. Exacerbation of bronchiectasis. 3. Noncompliance with medications. 4. Alcohol abuse. 5. Solitary pulmonary nodule. DISCUSSION: A 59-year-old with end-stage lung disease with chronic hypoxemic respiratory failure. Prognosis is poor. He is being evaluated for hospice. PLAN: 1. Continue current antibiotic regimen while in the hospital. The patient is being discharged. I would recommend a 21-day course of a quinolone such as Levaquin at the time of discharge. 2. Continue bronchodilators. 3. Encourage patient to discontinue alcohol. 4. Anticipate discharge to Hospice tomorrow. No new recommendations. I will sign off. Please reconsult if needed. cc: Barrett Ashton MD
[2019-11-01] MEDS: DUONEB (A & A) INH SCH ×4 (03:21→15:37)
[2019-11-01] MEDS: DOXYCYCLINE 100 MG in NS 250 ML IV SCH ×2 (04:05→14:18)
[2019-11-01] MEDS: SOLU-MEDROL IV SCH ×3 (04:06→14:19)
[2019-11-01] MEDS: LIBRIUM PO SCH ×3 (04:06→14:18)
[2019-11-01] MEDS: NORCO-7.5 PO PRN ×2 (04:38→18:04)
[2019-11-01 06:05] LABS: BASO# 0.01 X1000 (0.0-0.2); BASO% 0.1 % (0.0-0.8); HEMATOCRIT 35.8 % (42.0-52.0); HEMOGLOBIN 12.5 g/dL (14.0-18.0); IMM GRAN# 0.13 X1000 (0.0-0.04); IMM GRAN% 1.6 % (0.0-0.5); LYMPH# 0.77 X1000 (1.2-3.4); LYMPH% 9.7 % (20.5-51.1); MCH 35.2 PG (27-31); MCHC 34.9 g/dL (33-37); MCV 100.8 FL (81-99); MONO% 7.6 % (1.7-9.3); MPV 9.9 FL (7.4-10.4); PLT 213 X1000 (130-400); RBC 3.55 XMIL (4.7-6.1); RDW 13.8 % (11.5-14.5); WBC 7.91 X1000 (4.8-10.8)
[2019-11-01] MEDS: XANAX PO PRN (06:23)
[2019-11-01] MEDS: PROTONIX PO SCH (06:23)
[2019-11-01 06:38] LABS: AGAP 8; ALBUMIN 2.7 g/dL (3.5-5.0); BUN 13 mg/dL (8-22); CALCIUM 8.7 mg/dL (8.8-10.2); CHLORIDE 104 mmol/L (98-107); COSMO 285; CREATININE 0.6 mg/dL (0.7-1.2); ESTIMATED GFR > 60; GLUCOSE 155 mg/dL (70-104); MAGNESIUM 1.6 mg/dL (1.5-2.7); PHOSPHORUS 2.6 mg/dL (2.7-4.5); POTASSIUM 3.7 mmol/L (3.5-5.1); SODIUM 141 mmol/L (136-145); TCO2 29 mmol/L (25-35)
[2019-11-01] MEDS: MAXIPIME 1 GM in NS 50 ML IV SCH (08:50)
--- NOTE | 2019-11-01 10:45 | PROGRESS NOTE ---
DATE: 11/01/2019 SUBJECTIVE: Patient reports feeling somehow short of breath. He gets tired easily. OBJECTIVE: Vital Signs: Temperature 97.5 degrees, heart rate 77, respiratory rate 22, blood pressure 123/83, O2 saturation 96% on Venturi mask. General Examination: This is a chronically ill-appearing, malnourished, 59-year-old male, lying in bed in no acute distress. Cardiovascular exam: S1, S2 heard. No murmurs, gallops, or rubs. Regular rate and rhythm. Respiratory exam: Wheezing noted still in both pulmonary williamson, anterior and posterior. The patient is not using any accessory muscles or having work of breathing. Abdomen: Soft. Nontender to palpation. Bowel sounds present. No organomegaly. Extremities: No clubbing, cyanosis, or edema. Peripheral pulses present bilaterally. Neurologic exam: The patient is alert, oriented x3. Moves 4 extremities. LABORATORY DATA: Reviewed. ASSESSMENT AND PLAN: 1. Acute on chronic hypoxemic respiratory failure secondary to end-stage chronic obstructive pulmonary disease. 2. Chronic obstructive pulmonary disease exacerbation. 3. Pulmonary cachexia. 4. Alcohol use and abuse. 5. Disposition: At this point, patient is not improving, so we are going to send this patient with hospice. Today if everything is arranged, we will continue to monitor. cc: Fernandez Ortiz MD
[2019-11-01 16:15] VITALS: BP 131/78
--- NOTE | 2019-11-02 12:29 | DISCHARGE SUMMARY ---
ADMISSION DATE: 10/27/2019 DISCHARGE DATE: 11/01/2019 DISCHARGE DIAGNOSES: 1. Acute on chronic respiratory failure. 2. Chronic obstructive pulmonary disease exacerbation. 3. End-stage chronic obstructive pulmonary disease. 4. Alcohol abuse. CONSULTATIONS: Dr. Ashton from Pulmonary. PROCEDURES: 1. Chest x-ray done on admission showed emphysema with severe fibrosis. 2. Pulmonary arteriogram showed no pulmonary emboli, severe emphysema with fibrosis and stable enlarged mediastinal hilar lymph nodes. HOSPITAL COURSE: This is a cachectic-looking 59-year-old male with history of longstanding COPD, also chronic alcohol abuse. He is on home oxygen. He presented to the emergency department complaining of shortness of breath. Found to be in COPD exacerbation. The patient was provided antibiotics with breathing treatments but unfortunately this patient was not improving and requiring a lot of oxygen. Also clinically this patient looks to have end-stage COPD. We decided to documented it with pulmonary function tests but unfortunately this patient was not able to perform it because of his poor medical condition. In that regard, we talked with the patient about hospice and he agreed with the plan so patient is going to be going home with hospice. The patient is being discharged in stable condition. DISCHARGE PHYSICAL EXAMINATION: Vital Signs: Temperature 97.9 degrees, heart rate 90, respiratory rate 16, blood pressure 131/78, O2 saturation 97% on Venturi mask. General: This is a chronically ill-looking and cachectic 59-year-old male, lying in bed, in no acute distress. Cardiovascular: S1, S2 heard. No murmurs, gallops, or rubs. Regular rate and rhythm. Respiratory exam: Wheezing still noted in both pulmonary bases anteriorly and posteriorly. Patient is not using any accessory muscles or having work of breathing. Abdomen: Soft, nontender to palpation. Bowel sounds present. No organomegaly. Extremities: No clubbing, cyanosis, or edema. Peripheral pulses present in both legs. Neurological: The patient is alert and oriented x3. Moves 4 extremities. DISCHARGE DISPOSITION: 1. Patient is going home with hospice. 2. List of medications to be prescribed by hospice. cc: Fernandez Ortiz MD
== END 2019-11-01 18:28 | disposition hospice, home (50) | DRG 189 ==
LOC: SUPCPDRO → ED 13:15 → SUATTDRO 19:07 → EDIPHOLD 19:07 → 2N 23:28
PROVIDERS: ATTEND Internal Medicine

== ENCOUNTER 2019-11-02 11:59 | Inpatient (IN) ==
[2019-11-02 12:35] LABS: BLOOD TYPE ARTERIAL; HCO3-(ACT) 31.1 mmoll (20.0-26.0); METHB 1.2 % (0.0-1.5); O2(CT) 20.8 mL/dL (15.0-23.0); O2HB 95.7 % (95.0-99.0); PCO2(98.6) 36 mmHg (35-45); PO2(98.6) 148 mmHg (60-100); SAMPLE BLOOD; SAO2 99.5 % (95.0-100.0); THB 15.3 g/dL (11.5-17.4); pH(98.6) 7.54 (7.35-7.45)
[2019-11-02 12:38] LABS: ALLEN TEST YES; MODALITY NRB
[2019-11-02 12:57] LABS: URINE SOURCE CLEAN CATCH
--- NOTE | 2019-11-02 13:03 | Diag Imaging Result Doc PS360 ---
EXAM: CHEST-1 VIEW 11/02/2019 HISTORY: sob TECHNIQUE: AP portable upright chest at 1256 COMMENT: There are coarse interstitial opacities throughout both lungs particularly in the lung bases. There has been no appreciable change since 10/29/2019. Compared to 01/26/2019 there is slightly denser opacification present in the bases obscuring the hemidiaphragms which was not the case previously. IMPRESSION: Pulmonary fibrosis. Superimposed pulmonary edema versus pneumonia. Electronically signed by Tay Porter 11/02/2019 1:01 PM
[2019-11-02] MEDS ORDERED: ROCEPHIN 1 GM in NS 50 ML IV ONE (13:04)
[2019-11-02 13:09] LABS: BASO# 0.07 X1000 (0.0-0.2); BASO% 0.6 % (0.0-0.8); EOS# 0.02 X1000 (0.0-0.7); EOS% 0.2 % (0.0-10.0); HEMATOCRIT 51.5 % (42.0-52.0); HEMOGLOBIN 17.3 g/dL (14.0-18.0); IMM GRAN# 0.25 X1000 (0.0-0.04); IMM GRAN% 2.3 % (0.0-0.5); LYMPH# 2.04 X1000 (1.2-3.4); LYMPH% 18.7 % (20.5-51.1); MCH 33.7 PG (27-31); MCHC 33.6 g/dL (33-37); MCV 100.4 FL (81-99); MONO# 0.97 X1000 (0.11-0.59); MONO% 8.9 % (1.7-9.3); MPV 9.9 FL (7.4-10.4); NEUT# 7.55 X1000 (1.4-6.5); NEUT% 69.3 % (42.2-75.2); PLT 213 X1000 (130-400); RBC 5.13 XMIL (4.7-6.1); RDW 14.3 % (11.5-14.5)
[2019-11-02 13:11] LABS: BILIRUBIN URINE NEGATIVE (NEGATIVE); BLOOD URINE NEGATIVE (NEGATIVE); COLOR STRAW; GLUCOSE URINE NEGATIVE (NEGATIVE); KETONE URINE NEGATIVE (NEGATIVE); LEUKOCYTES URINE NEGATIVE (NEGATIVE); NITRITE URINE NEGATIVE (NEGATIVE); PROTEIN URINE NEGATIVE (NEGATIVE); TURBIDITY URINE CLEAR (CLEAR); UROBILINOGEN URINE NORMAL (NORMAL)
[2019-11-02 13:13] LABS: UR EPITHELIAL CELLS <10 /HPF (<10); URINE BACTERIA NEGATIVE /HPF; URINE RBC <10 /HPF (<10); URINE WBC <10 /HPF (<10)
[2019-11-02] MEDS ORDERED: NS 1,000 ML IV ONE (13:52)
[2019-11-02 14:34] LABS: AGAP 10; ALB/GLOB RATIO 1.1; ALBUMIN 2.9 g/dL (3.5-5.0); ALKALINE PHOSPHATASE 74 U/L (32-122); BUN 10 mg/dL (8-22); CALCIUM 8.5 mg/dL (8.8-10.2); CHLORIDE 98 mmol/L (98-107); CK PROFILE 49 U/L (24-204); COSMO 278; CREATININE 0.5 mg/dL (0.7-1.2); ESTIMATED GFR > 60; GLUCOSE 85 mg/dL (70-104); GOT 156 U/L (10-34); GPT 87 U/L (10-44); MAGNESIUM 1.5 mg/dL (1.5-2.7); POTASSIUM 3.4 mmol/L (3.5-5.1); SODIUM 140 mmol/L (136-145); TCO2 32 mmol/L (25-35); TOTAL BILIRUBIN 0.94 mg/dL (0.20-1.00); TOTAL PROTEIN 5.5 g/dL (6.3-8.3)
[2019-11-02 14:37] LABS: INR 1.13; PROTIME 14.7 Seconds (11.0-16.0)
[2019-11-02 14:38] LABS: PTT 22.5 Seconds (22.3-41.8)
[2019-11-02] MEDS ORDERED: ZOFRAN IV PRN (15:04)
--- NOTE | 2019-11-02 15:07 | PROVIDER DOCUMENTATION ---
This chart was entered by Justus Thao Scribe, acting as scribe for Ashish Khan CRNP. HPI-Respiratory General - General Chief Complaint: Shortness of Breath Stated Complaint: FALL/SOB Time Seen by Provider: 11/02/19 12:09 Source: patient Allergies/Adverse Reactions: Patient Allergies Allergy/AdvReac Type Severity Reaction Status Date / Time No Known Allergies Allergy Verified 11/02/19 12:54 Home Medications: Home Medication List Medication Instructions Recorded Confirmed Last Taken Type Albuterol [Albuterol Neb] 2.5 mg INH Q4H PRN PRN #30 neb 09/06/19 10/27/19 Unknown Rx - History of Present Illness-Resp Nature of Presenting Problem: Pt is a 59 y/o who presents to the ED by EMS with SOB. EMS reports pt home SAT was in the 70's where they began a NRB mask. O2 sat 92% currently. Pt reports he fell while at home hitting his ribs. Pt reports he was recently discharge home treated for pneumonia. Severity in ED: reports: severe Onset/Duration: reports: gradual Timing: reports: still present Current Respiratory Medication Therapy: Initiated see nurses note Modifying Factors: improves with: nothing Associated Symptoms: reports: chest pain/soreness, hurts to breathe, shortness of breath. denies: facial pain, fever/chills Similar Symptoms Previously?: Yes Recently seen or treated by another doctor?: Yes Review of Systems - Adult - REVIEW OF SYSTEMS - ADULT Constitutional: denies: chills, fever Eyes: reports: no symptoms reported Ears, Nose, Mouth & Throat: reports: no symptoms reported Cardiovascular: denies: chest pain, edema Respiratory: reports: dyspnea on exertion, shortness of breath. denies: cough Gastrointestinal: denies: abdominal pain, nausea, vomiting Genitourinary: denies: dysuria, discharge Musculoskeletal: denies: back pain, neck pain Integumentary: reports: no symptoms reported Neurological: denies: dizziness/vertigo, headache/migraines Psychiatric: reports: no symptoms reported Endocrine: reports: no symptoms reported Hematologic/Lymphatic: reports: no symptoms reported Allergic/Immunologic: reports: no symptoms reported All Other Systems: Reviewed and Negative Past History - Adult - PAST MEDICAL HISTORY-ADULT Review of Records: reports: Old Records Reviewed, Nursing Assessment Review, Medications Reviewed 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 ) Obstetrical/Gynecological: reports: denies history Genitourinary: reports: denies history Musculoskeletal: reports: denies history Neurological: reports: denies history Endocrine/Immune: reports: denies history Other Conditions: reports: denies history - PRIOR SURGERIES/PROCEDURES Surgical/Procedure History: reports: colonoscopy, tonsillectomy, orthopedic (extremity) (TKA) - IMMUNIZATION STATUS Childhood Immunizations: See Nurse Assessment Flu Vaccine: See Nurse Assessment - FAMILY HISTORY Family History: reviewed, not pertinent - SOCIAL HISTORY Smoking: non-smoker, quit greater than 1 year Substance Use: alcohol Alcohol Use Frequency: every day (Vodka) Living Situation: family Physical Exam-General - PHYSICAL EXAM-ADULT Initial Vital Signs Reviewed: Yes - CONSTITUTIONAL General Appearance: alert, moderate distress - EYES Eyes: PERRL/EOMI, pink conjunctivae - HEAD, EARS, NOSE, MOUTH & THROAT HENMT: moist mucous membranes, normal ENT inspection, TMs normal, pharynx normal . negative: angioedema - NECK Neck: full range of motion, supple, normal inspection. negative: lymphadenopathy - RESPIRATORY Respiratory: respiratory distress, decreased breath sounds (bilaterally), accessory muscle use, increased rate - CARDIOVASCULAR Cardiovascular: normal peripheral pulses, regular rate, rhythm, no edema - GASTROINTESTINAL (ABDOMEN) Abdominal Exam: normal bowel sounds, non tender, soft - LYMPHATIC Lymphatic: no adenopathy - MUSCULOSKELETAL Back Exam: normal inspection, no CVA tenderness, no vertebral tenderness Extremity: normal range of motion, non-tender, normal inspection - SKIN Integumentary: normal color, normal turgor, warm/dry - NEUROLOGIC Neurologic: grossly normal, no motor/sensory deficits - PSYCHIATRIC Psych/Mental Status: oriented x 3 Progress - PLAN OF CARE/RESULTS Progress/Plan/Lab Results: Vital Signs - 8 hr 11/02/19 12:12 11/02/19 12:15 11/02/19 12:16 Temperature 99.0 F Pulse Rate 121 H Respiratory Rate 25 H 24 Blood Pressure 125/77 125/77 O2 Sat by Pulse Oximetry 64 L 85 L 81 L 11/02/19 12:30 11/02/19 12:36 11/02/19 12:51 Temperature Pulse Rate 99 H 99 H Respiratory Rate 28 H 25 H Blood Pressure 116/76 O2 Sat by Pulse Oximetry 99 100 99 11/02/19 13:00 11/02/19 13:02 11/02/19 13:30 Temperature Pulse Rate 99 H 93 H 96 H Respiratory Rate 19 20 21 Blood Pressure 110/77 O2 Sat by Pulse Oximetry 99 100 100 11/02/19 13:32 11/02/19 14:00 11/02/19 14:02 Temperature Pulse Rate 94 H 99 H 99 H Respiratory Rate 28 H 25 H 17 Blood Pressure 111/70 107/70 O2 Sat by Pulse Oximetry 100 97 97 11/02/19 14:03 Temperature Pulse Rate 98 H Respiratory Rate 23 Blood Pressure O2 Sat by Pulse Oximetry 96 Laboratory Results - last 24 hr 11/02/19 11/02/19 11/02/19 12:28 12:28 12:46 WBC 10.90 H RBC 5.13 Hgb 17.3 D Hct 51.5 D MCV 100.4 H MCH 33.7 H MCHC 33.6 RDW Std Deviation 14.3 Plt Count 213 MPV 9.9 Immature Gran % (Auto) 2.3 H Neut % (Auto) 69.3 Lymph % (Auto) 18.7 L [place] % (Auto) 8.9 Eos % (Auto) 0.2 Baso % (Auto) 0.6 Immature Gran # (Auto) 0.25 H Neut # (Auto) 7.55 H Lymph # (Auto) 2.04 [place] # (Auto) 0.97 H Eos # (Auto) 0.02 Baso # (Auto) 0.07 PT INR PTT (Actin FS) Specimen Type ARTERIAL Sample Site R RADIAL pH 7.54 H pCO2 36 pO2 148 H HCO3 31.1 H Base Excess 8.0 H Oxyhemoglobin 95.7 ABG O2 Sat (Calculated) 20.8 ABG O2 Saturation 99.5 ABG Carboxyhemoglobin 2.60 H ABG Methemoglobin 1.2 Teo Test YES A-a O2 Difference 520.0 Total Hemoglobin 15.3 Lactate 1.80 Liter Flow 15.0 Blood Gas Modality NRB FiO2 % 100.0 Sodium Potassium Chloride Carbon Dioxide Anion Gap BUN Creatinine Estimated GFR/1.73 m2 BUN/Creatinine Ratio Glucose Calculated Osmolality Calcium Magnesium Total Bilirubin AST ALT Alkaline Phosphatase Creatine Kinase Troponin T High Sens Total Protein Albumin Globulin Albumin/Globulin Ratio Plasma Lactate Urine Source CLEAN CATCH Urine Color STRAW Urine Turbidity CLEAR Urine pH 8.0 Ur Specific [place] 1.010 Urine Protein NEGATIVE Ur Glucose (Stick) NEGATIVE Ur Ketones (Stick) NEGATIVE Urine Blood NEGATIVE Urine Nitrite NEGATIVE Urine Bilirubin NEGATIVE Urobilinogen Dipstick NORMAL Urine Leukocytes NEGATIVE Urine WBC (Auto) <10 Urine RBC (Auto) <10 U Epithel Cells (Auto) <10 Urine Bacteria (Auto) NEGATIVE 11/02/19 11/02/19 11/02/19 12:46 12:46 14:00 WBC RBC Hgb Hct MCV MCH MCHC RDW Std Deviation Plt Count MPV Immature Gran % (Auto) Neut % (Auto) Lymph % (Auto) [place] % (Auto) Eos % (Auto) Baso % (Auto) Immature Gran # (Auto) Neut # (Auto) Lymph # (Auto) [place] # (Auto) Eos # (Auto) Baso # (Auto) PT Cancelled INR Cancelled PTT (Actin FS) Cancelled Specimen Type Sample Site pH pCO2 pO2 HCO3 Base Excess Oxyhemoglobin ABG O2 Sat (Calculated) ABG O2 Saturation ABG Carboxyhemoglobin ABG Methemoglobin Teo Test A-a O2 Difference Total Hemoglobin Lactate Liter Flow Blood Gas Modality FiO2 % Sodium 140 Potassium 3.4 L Chloride 98 Carbon Dioxide 32 Anion Gap 10 BUN 10 Creatinine 0.5 L Estimated GFR/1.73 m2 > 60 BUN/Creatinine Ratio 20 Glucose 85 Calculated Osmolality 278 Calcium 8.5 L Magnesium 1.5 Total Bilirubin 0.94 AST 156 H ALT 87 H Alkaline Phosphatase 74 Creatine Kinase 49 Troponin T High Sens Total Protein 5.5 L Albumin 2.9 L Globulin 2.6 Albumin/Globulin Ratio 1.1 Plasma Lactate 3.3 H Urine Source Urine Color Urine Turbidity Urine pH Ur Specific [place] Urine Protein Ur Glucose (Stick) Ur Ketones (Stick) Urine Blood Urine Nitrite Urine Bilirubin Urobilinogen Dipstick Urine Leukocytes Urine WBC (Auto) Urine RBC (Auto) U Epithel Cells (Auto) Urine Bacteria (Auto) 11/02/19 11/02/19 14:00 14:00 WBC RBC Hgb Hct MCV MCH MCHC RDW Std Deviation Plt Count MPV Immature Gran % (Auto) Neut % (Auto) Lymph % (Auto) [place] % (Auto) Eos % (Auto) Baso % (Auto) Immature Gran # (Auto) Neut # (Auto) Lymph # (Auto) [place] # (Auto) Eos # (Auto) Baso # (Auto) PT 14.7 INR 1.13 PTT (Actin FS) 22.5 Specimen Type Sample Site pH pCO2 pO2 HCO3 Base Excess Oxyhemoglobin ABG O2 Sat (Calculated) ABG O2 Saturation ABG Carboxyhemoglobin ABG Methemoglobin Teo Test A-a O2 Difference Total Hemoglobin Lactate Liter Flow Blood Gas Modality FiO2 % Sodium Potassium Chloride Carbon Dioxide Anion Gap BUN Creatinine Estimated GFR/1.73 m2 BUN/Creatinine Ratio Glucose Calculated Osmolality Calcium Magnesium Total Bilirubin AST ALT Alkaline Phosphatase Creatine Kinase Troponin T High Sens 10 Total Protein Albumin Globulin Albumin/Globulin Ratio Plasma Lactate Urine Source Urine Color Urine Turbidity Urine pH Ur Specific [place] Urine Protein Ur Glucose (Stick) Ur Ketones (Stick) Urine Blood Urine Nitrite Urine Bilirubin Urobilinogen Dipstick Urine Leukocytes Urine WBC (Auto) Urine RBC (Auto) U Epithel Cells (Auto) Urine Bacteria (Auto) Orders Category Date Time Status Admit - [facility] Routine AdmDCTranf 11/02/19 15:04 Active Activity - Up with Assistance ORDERED Care 11/02/19 15:04 Active Cardiac Monitoring DIRECTED Care 11/02/19 12:28 Active IV Insertion ORDERED Care 11/02/19 12:28 Completed Notify MD of + Sepsis Screen NOW Care 11/02/19 12:28 Active Notify Physician As Ordered Care 11/02/19 12:28 Active Update & Confirm Home Medicati ROUTINE Care 11/02/19 15:04 Active Regular Diet Diet 11/02/19 15:04 Active CHEST-1 VIEW [RAD] Stat Exams 11/02/19 12:28 Completed ABG [RESP] Routine Lab 11/02/19 12:28 Completed ALCOHOL BLOOD Stat Lab 11/02/19 14:57 Ordered BLOOD CULTURE [BLDCUL] Stat Lab 11/02/19 12:28 Results CBC WITH DIFF [HEME] Stat Lab 11/02/19 12:46 Completed CK PROFILE [SP CHEM] Stat Lab 11/02/19 14:00 Completed COMPREHENSIVE METABOLIC PANEL [CHEM] Stat Lab 11/02/19 14:00 Completed LACTATE, PLASMA [CHEM] Lab 11/02/19 15:30 Uncollected LACTATE, PLASMA [CHEM] Lab 11/02/19 18:30 Uncollected LACTATE, PLASMA [CHEM] Q3H Lab 11/02/19 12:46 Completed MAGNESIUM [CHEM] Stat Lab 11/02/19 14:00 Completed PROTIME WITH INR [COAG] Stat Lab 11/02/19 14:00 Completed PTT [COAG] Stat Lab 11/02/19 14:00 Completed SPUTUM CULTURE WITH GRAM STAIN [RM] Routine Lab 11/02/19 15:04 Uncollected TROPONIN T HIGH SENSITIVITY Stat Lab 11/02/19 14:00 Completed URINALYSIS W/POSS RFLX CULT [URINALYSIS] Stat Lab 11/02/19 12:28 Completed URINE DRUG SCREEN Stat Lab 11/02/19 15:05 Uncollected 0.9% Sodium Chloride Inj [Ns] 1,000 ml Med 11/02/19 13:52 Discontinued IV 999 mls/hr Acetaminophen [Tylenol] Med 11/02/19 15:04 Ordered 650 mg PO Q6H PRN PRN Albuterol 2.5MG/Ipratrop 0.5MG [Duoneb (A & A)] Med 11/02/19 15:30 Ordered 3 ml INH RTQ4H Budesonide [Pulmicort] Med 11/02/19 19:30 Ordered 0.5 mg INH RTBID CefTRIAXONE [Rocephin] 1 gm Med 11/02/19 13:04 Discontinued 0.9% Sodium Chloride Inj [Ns] 50 ml IV NOW CefTRIAXONE [Rocephin] 1 gm Med 11/03/19 09:00 Ordered 0.9% Sodium Chloride Inj [Ns] 50 ml IV Q24H Enoxaparin [Lovenox] Med 11/02/19 15:04 Ordered 30 mg SUBQ Q24H Methylprednisolone Sod Succ [Solu-Medrol] Med 11/02/19 15:04 Ordered 60 mg IV Q8H Ondansetron [Zofran] Med 11/02/19 15:04 Ordered 4 mg IV Q4H PRN PRN Aerosol Treatments Routine Oth 11/02/19 15:04 Active Oxygen Device Stat Oth 11/02/19 12:28 Active EKG [EKG] Stat Ther 11/02/19 14:05 Ordered Transfer/Admit Order [TRANSFER] Routine Transfer 11/02/19 14:58 Ordered Result Diagrams: 11/02/19 12:46 11/02/19 14:00 - REASSESSMENT Reassessment #1 Time Reassessed: 13:45 (O2 sat 100% on NRB. Request RN try placing pt on venti mask. ) Reassessment #2 Time Reassessed: 14:34 (Pt placed on 50% venti mask, O2 sat maintaining 95%. Pt resting more comfortably. family reports pt is an alcoholic and drinks at least 1/2 pint a day) Status: improving - EKG 1 Time of EKG reading by physician:: 14:16 EKG Read and Signed by:: Bobby Wagner EKG Interpretation (*Must complete 3 of following elements*): Abnormal Rate: 91 Rhythm: NSR Comments: Non specific T wave abnormality - XRAY 1 XRAY Study: Chest Impression: See EMR Report (EXAM: CHEST-1 VIEW 11/02/2019 HISTORY: sob TECHNIQUE: AP portable upright chest at 1256 COMMENT: There are coarse interstitial opacities throughout both lungs particularly in the lung bases. There has been no appreciable change since 10/29/2019. Compared to 01/26/2019 there is slightly denser opacification present in the bases obscuring the hemidiaphragms which was not the case previously. IMPRESSION: Pulmonary fibrosis. Superimposed pulmonary edema versus pneumonia. Electronically signed by Tay Porter 11/02/2019 1:01 PM) - CONSULTS/PCP/HOSPITALIST Notification #1 *Consult/PCP/Hospitalist*: ZEINA Ventura hospitalist Time Discussed: 13:53 (Discussed pt but will call once workup is complete) #2 Consult: Audrey PASTRANA Time Discussed: 15:07 Consult Disposition: Will see in ED, Admit Departure - Departure Date of Disposition Decision: 11/02/19 Time of Disposition Decision: 14:50 DIAGNOSIS: Respiratory distress, Pulmonary fibrosis Sepsis Qualifiers: Sepsis type: sepsis due to unspecified organism Sepsis acute organ dysfunction status: unspecified Qualified Code(s): A41.9 - Sepsis, unspecified organism Pneumonia Qualifiers: Pneumonia type: due to unspecified organism Laterality: unspecified laterality Lung location: unspecified part of lung Qualified Code(s): J18.9 - Pneumonia, unspecified organism Pulmonary edema Qualifiers: Chronicity: acute Qualified Code(s): J81.0 - Acute pulmonary edema Disposition: ADMITTED INPATIENT 09 Certified Medical Emergency: Emergent Condition: Fair Referrals and Follow-Ups: None,PCP [Primary Care Provider] - - Critical Care Note This patient required my direct & personal management of CC.: Yes Total Time (mins): 40 Critical Care Statement: This patient required my direct personal management to treat or rule out processes, the absence of which, could potentiallly result in sudden, clinically significant life or limb threatening deterioration. Attestation - Physician/ CHARLETTE Attestation Patient care was provided by Advanced Practice Provider:: Yes Advanced Practice Provider:: Ashish Khan Advanced Practice Provider documentation review:: The Mid-level provider do cumentation, treatment plan and medical decision making was reviewed by the physician who agrees with all treatment and medical decision making by the MLP. The physician spent face to face time with patient:: No Advanced Practice Provider documentation review:: Supervising physician onsite and consulted in the evaluation and care of this patient. The physician did not have a face to face encounter with the patient. This chart was documented by the indicated scribe, (Justus Thao Scribe) and accurately reflects the services I performed and decisions made by me, Ashish Khan, ZEINA, as attested by the provider's signature.
[2019-11-02] MEDS: DUONEB (A & A) INH SCH ×3 (15:23→22:41)
[2019-11-02 16:12] LABS: UR AMPHETAMINES QUAL NONE DETECTED (NONE DETECT); UR BARBITUATES QUAL NONE DETECTED (NONE DETECT); UR BENZODIAZEPIN QUAL PRESUMPTIVE POSITIVE (NONE DETECT); UR CANNABINOIDS QUAL NONE DETECTED (NONE DETECT); UR COCAINE QUAL NONE DETECTED (NONE DETECT); UR METHADONE QUAL NONE DETECTED (NONE DETECT); UR OPIATES QUAL NONE DETECTED (NONE DETECT); UR OXYCODONE QUAL NONE DETECTED (NONE DETECT); UR PCP QUAL NONE DETECTED (NONE DETECT)
[2019-11-02] MEDS: SOLU-MEDROL IV SCH ×2 (16:44→22:16)
[2019-11-02] MEDS: LOVENOX SUBQ SCH (16:45)
[2019-11-02] MEDS: MERREM 500 MG in NS 50 ML IV SCH ×2 (16:46→23:30)
[2019-11-02] MEDS: TYLENOL PO PRN (16:57)
[2019-11-02] MEDS: DOXYCYCLINE 100 MG in NS 250 ML IV SCH (17:04)
--- NOTE | 2019-11-02 17:43 | HISTORY AND PHYSICAL ---
ADDENDUM: Mr. Appiah is a 59-year-old male who has endstage COPD. He was admitted to the hospital on the 12th of this month. He spent 5-6 days in the hospital and was discharged home yesterday. Apparently he was doing okay, but according to the family, this is the son and the [id number] who were at the bedside, they referred that Mr. Appiah has been having more shortness of breath since he got discharged and since he went home. Last night he accidentally fell and hit the left side of his chest, and since then he has been in excruciating pain and more shortness of breath. He was brought into the emergency room. He was found to be remarkably hypoxemic with saturation of 64%. PHYSICAL EXAMINATION: LUNGS: His exam shows that air entry was bilaterally reduced, but I did not hear any wheezing. GENERAL: He looks cachectic with a BMI of 17.3. He is looking chronically ill. CARDIOVASCULAR: Regular rate and rhythm. ABDOMEN: Soft. EXTREMITIES: No pedal edema. He has clubbing on the fingers. CENTRAL NERVOUS SYSTEM: The patient is awake, alert and oriented. LABORATORY DATA: Laboratory data has been reviewed, and no major changes. His WBC is 10.9. His labs also show that plasma lactate was 3.3. DIAGNOSTIC DATA: A chest x-ray shows pulmonary fibrosis. There is a superimposed pulmonary edema versus pneumonia. This seems to suggest that comparing to the previous x-ray there was slightly dense opacification present in bases, obscuring both hemidiaphragms, which was not the case previously. There is no mention of any fracture. ASSESSMENT AND PLAN: So in general Mr. Appiah was discharged home yesterday on hospice. It appears that the family was not particularly happy with the services last night, that medications were not provided, and that Mr. Appiah was in more distress when he went home. He comes back seemingly in more respiratory hypoxemic failure with saturation of 64%. 1. Acute hypoxemic respiratory failure. 2. Endstage chronic obstructive pulmonary disease, on home oxygen. 3. Bilateral lower lobe infiltrates concerning for pneumonia. I understand from previous notes that Mr. Appiah was treated extensively with antibiotics; however, the x-ray seems to suggest mild worsening. WBC is slightly elevated and his lactate level is also slightly elevated, so I am going to cover him empirically with antibiotics. 4. Blunt trauma to left hemithorax with a lot of pain. We will continue addressing his pain needs. Please refer to the details of the history and physical that has been dictated in the chart by the nurse practitioner. I have discussed the plan with her. Of note, Mr. Appiah's family now tells me that Mr. Appiah does not have any home that he will be able to go to when he gets discharged, and that they prefer that he goes somewhere for the hospice services. We will get Social Work and Case Management to look into this and then get us a better plan. cc: Harrison Francois MD
--- NOTE | 2019-11-02 18:48 | HISTORY AND PHYSICAL ---
PRIMARY CARE PROVIDER: No one. CHIEF COMPLAINT: Shortness of breath and left rib pain. HISTORY OF PRESENT ILLNESS: Mr. Dina Appiah is a 59-year-old male, very ill-appearing and cachectic. Was recently discharged yesterday after being treated for end-stage COPD. Went home and was going to go home with hospice. Now he is saying he wants to be a FULL CODE, as there is family to be around, to keep him alive until all his family can be around. Imaging shows that he may have pneumonia versus pulmonary edema. He has some mild COPD exacerbation. Apparently had a fall and hurt his left ribs. When he became so short of breath, EMS was called. He was found to be having saturations in the 60s on his 6 L face mask at home. He has been coughing up thick white to cream-colored phlegm. He has had some chills as well. Otherwise, there are no other complaints. He has a history of 1 pint of whiskey a day since he was 11 years old, which is when he started drinking, according to the family who is at the bedside, and he did have 1 shot of whiskey yesterday after getting home. We will admit him for further treatment and evaluation. PAST MEDICAL HISTORY: 1. Coronary artery disease. 2. COPD on 6 L face mask at home. 3. Pulmonary fibrosis. SURGICAL HISTORY: 1. Tonsillectomy. 2. Left knee surgery. 3. Sinus surgery. SOCIAL HISTORY: A pint of whiskey per day, and says he started at the age of 11. No alcohol except for 1 shot yesterday of whiskey since his original admission. He quit smoking 25 years ago. No illicit drug use. Lives with family. FAMILY HISTORY: COPD, diabetes. ALLERGIES: No known drug allergies. HOME MEDICATIONS: Not listed. Also not listed on the discharge summary. REVIEW OF SYSTEMS: Fourteen-point review of systems was completed, and all are negative except for those mentioned above in HPI. PHYSICAL EXAMINATION: VITAL SIGNS: Temperature 99, heart rate 89, respiratory rate 22, blood pressure 105/87, O2 saturation 96% on 15 L Venturi. GENERAL: Mr. Dina Appiah is a 59-year-old male. RESPIRATORY: He definitely has increased work of breathing. He is tolerating his oxygen. He has expiratory wheezes noted throughout with mild accessory muscle use. GI: Soft, nontender, nondistended. Positive bowel sounds x4. EXTREMITIES: Decreased range of motion, decreased strength, generalized weakness. NEUROLOGIC: Oriented x3. Follows commands. Sensory is intact. SKIN: Warm, dry, intact. LABORATORY DATA: White blood cells 10,000 hemoglobin 17, hematocrit 51, platelet count 213. INR is 1.13. ABGs on a non-rebreather: pH of 7.54, pCO2 of 36, pO2 of 148, bicarb 31, base excess 8, saturation 95%, lactate 1.8. Sodium 140, potassium 3.4, BUN 10, creatinine 0.5, glucose 85, calcium 8.5, magnesium 1.5. Bilirubin 0.94, AST 156, ALT 87. CK 49, troponin 10. Albumin is 2.9. Lactate 1.1 (originally was 3.3). Urinalysis negative. Alcohol negative. Urine drug screen positive for benzodiazepines. I do not believe we have given him anything here. IMAGING: Chest x-ray: Pulmonary fibrosis, superimposed pulmonary edema versus pneumonia. ASSESSMENT AND PLAN: 1. Acute on chronic end-stage chronic obstructive pulmonary disease, acute hypoxemic respiratory failure requiring higher O2 demands, likely with superimposed pneumonia versus edema that is causing this exacerbation. Steroids, nebulizers, antibiotics. 2. Pneumonia versus edema. He has had chills. There is no discoloration in the phlegm, but he is on antibiotic therapy. 3. Left rib pain due to a fall. No obvious fractures. 4. Pulmonary fibrosis with end-stage chronic obstructive pulmonary disease. He is on continuous oxygen at home, high dose. 5. History of coronary artery disease. Denies chest pain. 6. Alcohol abuse. Apparently, according to family, he has had a pint of whiskey a day and started at age 11, and then he had 1 shot of whiskey yesterday, so we may end up having to put him on a Librium taper. 7. Apparently was discharged home on hospice, but is now wanting to be a FULL CODE and wants everything done until family can be at the bedside, so will need to do another palliative care. 8. Deep venous thrombosis prophylaxis, Lovenox. Dictated by ZEINA Owens for Harrison Francois MD cc: ZEINA Owens MD
[2019-11-02] MEDS: PULMICORT INH SCH (20:08)
[2019-11-03] MEDS: TYLENOL PO PRN ×2 (03:11→20:14)
[2019-11-03] MEDS: DUONEB (A & A) INH SCH ×6 (03:13→22:50)
[2019-11-03] MEDS: DOXYCYCLINE 100 MG in NS 250 ML IV SCH ×2 (04:51→21:27)
[2019-11-03] MEDS: SOLU-MEDROL IV SCH ×3 (06:09→22:20)
--- NOTE | 2019-11-03 07:14 | Diag Imaging Result Doc PS360 ---
EXAM: CHEST-PORTABLE 11/03/2019 HISTORY: short of breath TECHNIQUE: AP portable at 0554 COMMENT: The coarse alveolar and interstitial opacities which were demonstrated on previous studies are again noted. There is slightly worsened obscuration of the right hemidiaphragm. This may be largely due to less optimal inspiration compared to 11/02/2019. IMPRESSION: Questionably worsened pneumonia right lower lobe. Electronically signed by Tay Porter 11/03/2019 7:11 AM
[2019-11-03 07:29] LABS: BASO# 0.01 X1000 (0.0-0.2); BASO% 0.1 % (0.0-0.8); HEMATOCRIT 34.1 % (42.0-52.0); HEMOGLOBIN 12.3 g/dL (14.0-18.0); IMM GRAN# 0.09 X1000 (0.0-0.04); IMM GRAN% 1.2 % (0.0-0.5); LYMPH# 0.58 X1000 (1.2-3.4); LYMPH% 7.5 % (20.5-51.1); MCHC 36.1 g/dL (33-37); MCV 99.7 FL (81-99); MONO# 0.32 X1000 (0.11-0.59); MONO% 4.2 % (1.7-9.3); MPV 10.2 FL (7.4-10.4); PLT 169 X1000 (130-400); RBC 3.42 XMIL (4.7-6.1)
[2019-11-03] MEDS: MERREM 500 MG in NS 50 ML IV SCH ×2 (07:52→15:40)
[2019-11-03 07:55] LABS: AGAP 11; ALB/GLOB RATIO 0.9; ALBUMIN 2.5 g/dL (3.5-5.0); ALKALINE PHOSPHATASE 66 U/L (32-122); BUN 12 mg/dL (8-22); CALCIUM 7.7 mg/dL (8.8-10.2); CHLORIDE 99 mmol/L (98-107); COSMO 278; CREATININE 0.6 mg/dL (0.7-1.2); ESTIMATED GFR > 60; GLUCOSE 146 mg/dL (70-104); GOT 102 U/L (10-34); GPT 64 U/L (10-44); POTASSIUM 3.3 mmol/L (3.5-5.1); SODIUM 138 mmol/L (136-145); TCO2 28 mmol/L (25-35); TOTAL BILIRUBIN 0.71 mg/dL (0.20-1.00); TOTAL PROTEIN 5.3 g/dL (6.3-8.3)
[2019-11-03] MEDS: PULMICORT INH SCH ×2 (08:11→19:44)
[2019-11-03] MEDS ORDERED: ROCEPHIN 1 GM in NS 50 ML IV SCH (09:00)
[2019-11-03 09:09] LABS: BANDS 2 % (0-1); LYMPHS 6 % (21-51); SEGS 92 % (42-75)
[2019-11-03] MEDS: MYCOSTATIN SUSP PO SCH ×5 (09:33→21:26)
[2019-11-03] MEDS: DIFLUCAN PO SCH (09:33)
[2019-11-03] MEDS ORDERED: KLOR-CON PO ONE (10:39)
[2019-11-03] MEDS: MORPHINE IR PO SCH ×2 (10:40→18:27)
--- NOTE | 2019-11-03 10:47 | PROGRESS NOTE ---
DATE: 11/03/2019 SUBJECTIVE: This morning, Mr. Appiah refers to be doing slightly better, but he still has a lot of pains on the left side of the chest wall. He continues to be on Venturi mask for supplemental oxygen. OBJECTIVE: Vital Signs: Blood pressure is 117/81, pulse of 90, respirations 17, temperature 97.4 degrees. General: Mr. Appiah is a 59-year-old, gentleman. He is in bed. He is on Venturi mask. HEENT: Mucosa is pink and moist. Anicteric. Acyanotic. Neck: Supple. Chest: Air entry is bilaterally reduced. There are bilateral end inspiratory crackles in both lung williamson. Did not hear any wheezing. Cardiovascular: Regular rate and rhythm. No murmurs, no rubs, no gallops. GI: Abdomen is soft, nontender. Bowel sounds present. Extremities: No pedal edema. ACCOUNT EXECUTIVE SALES REPRESENTATIVE: The patient is awake, alert, and oriented. Musculoskeletal: There is tenderness on palpating the left lateral rib cage, especially over the seventh and eighth ribs. LABORATORY DATA: This morning, WBC is 7.70, hemoglobin is 12.3, platelet count of 169,000. The patient's chemistry is also reviewed, and for most part unremarkable, except for mildly low potassium and mildly elevated liver enzymes, which seem to be trending down. Laboratory data has also been reviewed. No changes. ASSESSMENT: 1. Acute on chronic hypoxemic respiratory failure. 2. End-stage chronic obstructive pulmonary disease with moderate exacerbation. 3. Bilateral lower lobe infiltrate concerning for pneumonia. The patient is on antimicrobial coverage. 4. Blunt trauma to left hemithorax with a lot of pain. X-ray does not show any rib fracture. Will continue with pain management. 5. Pulmonary cachexia. Noted. 6. Electrolyte abnormalities, including mild hypokalemia. We will replace this. 7. Transaminitis with pattern consistent with alcohol-induced liver injury. The patient is noted to abuse alcohol at home. He has been advised. We will also do hepatitis panel to rule out any underlying viral etiology. 8. Bronchiectasis with possible exacerbation. Will continue with bronchodilation therapy, antibiotics, and steroids. In general, Mr. Appiah is a 59-year-old, gentleman with history of advanced end-stage chronic obstructive pulmonary disease with bronchiectasis. He was discharged from the hospital on 11/01/2019 after being here for 5 days, went home, and then sustained an injury to the left side of his chest wall, came back, having more pain, more shortness of breath. Chest x-ray seems to suggest worsening pneumonia. The patient is being admitted for severe hypoxemia, bilateral pneumonias, and chronic obstructive pulmonary disease/bronchiectasis exacerbation and intractable left-sided traumatic pain. Mr. Appiah was discharged also on hospice. Unfortunately, the family thinks that they are not able to even cater for him with hospice at home, and they are recommending Software Engineering Project Manager to see if he can be discharged to a halfway or a different place for hospice services. Will get Case Management and Software Engineering Project Manager on board. cc: Harrison Francois MD
[2019-11-03] MEDS: LOVENOX SUBQ SCH (15:40)
[2019-11-03] MEDS: MORPHINE IV PRN ×2 (15:55→22:56)
[2019-11-04] MEDS: MERREM 500 MG in NS 50 ML IV SCH ×4 (01:18→23:35)
[2019-11-04] MEDS: MORPHINE IR PO SCH ×3 (02:00→17:33)
[2019-11-04] MEDS: DUONEB (A & A) INH SCH ×5 (03:13→23:26)
[2019-11-04] MEDS: SOLU-MEDROL IV SCH ×3 (06:21→21:04)
[2019-11-04 06:48] LABS: HEMATOCRIT 34.4 % (42.0-52.0); HEMOGLOBIN 11.4 g/dL (14.0-18.0); IMM GRAN# 0.07 X1000 (0.0-0.04); IMM GRAN% 0.7 % (0.0-0.5); LYMPH# 0.69 X1000 (1.2-3.4); LYMPH% 7.4 % (20.5-51.1); MCH 34.1 PG (27-31); MCHC 33.1 g/dL (33-37); MONO# 0.82 X1000 (0.11-0.59); MONO% 8.8 % (1.7-9.3); MPV 10.6 FL (7.4-10.4); NEUT# 7.78 X1000 (1.4-6.5); NEUT% 83.1 % (42.2-75.2); PLT 174 X1000 (130-400); RBC 3.34 XMIL (4.7-6.1); RDW 13.9 % (11.5-14.5); WBC 9.36 X1000 (4.8-10.8)
--- NOTE | 2019-11-04 06:54 | EKG Report ---
Test Performed on : 11/02/2019 2:16:36 PM Test Reason : CP Blood Pressure : / mmHG Vent. Rate : 091 BPM Atrial Rate : 091 BPM P-R Int : 132 ms QRS Dur : 076 ms QT Int : 364 ms P-R-T Axes : 045 048 019 degrees QTc Int : 447 ms Normal sinus rhythm. Nonspecific T wave abnormality Abnormal ECG When compared with ECG of 27-OCT-2019 13:40, (Unconfirmed) No significant change was found Unconfirmed Result
[2019-11-04 07:20] LABS: AGAP 8; ALBUMIN 2.7 g/dL (3.5-5.0); ALKALINE PHOSPHATASE 60 U/L (32-122); BUN 8 mg/dL (8-22); CALCIUM 8.8 mg/dL (8.8-10.2); CHLORIDE 103 mmol/L (98-107); COSMO 285; CREATININE 0.5 mg/dL (0.7-1.2); ESTIMATED GFR > 60; GLUCOSE 157 mg/dL (70-104); GOT 66 U/L (10-34); GPT 46 U/L (10-44); POTASSIUM 4.1 mmol/L (3.5-5.1); SODIUM 142 mmol/L (136-145); TCO2 31 mmol/L (25-35); TOTAL PROTEIN 5.5 g/dL (6.3-8.3)
[2019-11-04] MEDS: DOXYCYCLINE 100 MG in NS 250 ML IV SCH ×2 (08:08→21:04)
[2019-11-04] MEDS: DIFLUCAN PO SCH (08:11)
[2019-11-04] MEDS: MORPHINE IV PRN ×2 (08:11→21:15)
[2019-11-04] MEDS: MYCOSTATIN SUSP PO SCH ×4 (08:11→21:04)
[2019-11-04] MEDS: PULMICORT INH SCH (08:40)
--- NOTE | 2019-11-04 11:05 | PROGRESS NOTE ---
DATE: 11/04/2019 SUBJECTIVE: This patient is complaining of shortness of breath and cough, but as per the patient, he feels a bit better compared with admission he is still complaining of pain on the left side of the chest wall which is painful also to palpation. He is using a Venturi mask at this moment. PHYSICAL EXAMINATION: Vital Signs: Temperature 97.5 degrees, pulse 95, respiratory rate 20, blood pressure 113/77, oxygen saturation 91% on 15 L of nasal cannula. HEENT: Head normocephalic, no trauma. PERRLA. Neck: Supple. Chest: Decreased breath sounds globally, bilateral crackles and end-expiratory wheezing, crepitus bilaterally, mostly at the bases. Cardiovascular: RRR. Abdomen: Soft. Extremities: No edema, no clubbing, no cyanosis. Neurological: The patient is awake. He is oriented. He is following commands. Chest: Painful to palpation at the level of the left rib cage somewhere in the middle of the 7th and 9th ribs. LABORATORY: WBC 9.3, hemoglobin 11.4, hematocrit 34.4, platelets 174,000. Sodium 142 potassium 4.1, chloride 103, bicarbonate 31, BUN 8, creatinine 0.5, glucose 157, calcium 8.8. AST 66, ALT 46, alkaline phosphatase 60, albumin 2.7. ASSESSMENT AND PLAN: 1. Acute on chronic hypoxemic respiratory failure. 2. End-stage chronic obstructive pulmonary disease with exacerbation. 3. Bilateral lower lobe infiltrates, likely due to pneumonia. 4. Left hemithorax pain due to trauma, no rib fracture on the x-ray. 5. Pulmonary cachexia. 6. Electrolyte abnormalities, including mild hypokalemia, resolved. 7. Transaminitis, this is getting better. 8. Possible alcohol abuse, likely this is the cause of the increased transaminase. We will monitor. 9. Bronchiectasis with possible exacerbation. Continue with bronchodilator therapy, antibiotics and steroids. 10. It looks like this patient has an end-stage condition. He also have a portable Do No Resuscitate. Palliative Care has been consulted. They will hopefully see this patient today. It looks like the problem is that even though he has been discharged with hospice, at home nobody can take care of him. Let us see how we can help this patient out. cc: Chris Larkin MD
[2019-11-04] MEDS: LOVENOX SUBQ SCH (16:04)
[2019-11-05] MEDS: MORPHINE IR PO SCH ×3 (04:05→17:29)
[2019-11-05] MEDS: DUONEB (A & A) INH SCH ×6 (04:24→23:55)
[2019-11-05] MEDS: SOLU-MEDROL IV SCH ×3 (06:25→21:01)
[2019-11-05 07:24] LABS: BASO# 0.02 X1000 (0.0-0.2); BASO% 0.2 % (0.0-0.8); HEMATOCRIT 36.8 % (42.0-52.0); HEMOGLOBIN 12.6 g/dL (14.0-18.0); IMM GRAN# 0.13 X1000 (0.0-0.04); IMM GRAN% 1.3 % (0.0-0.5); LYMPH# 0.56 X1000 (1.2-3.4); LYMPH% 5.5 % (20.5-51.1); MCH 34.9 PG (27-31); MCHC 34.2 g/dL (33-37); MCV 101.9 FL (81-99); MONO# 0.86 X1000 (0.11-0.59); MONO% 8.5 % (1.7-9.3); MPV 10.5 FL (7.4-10.4); NEUT# 8.59 X1000 (1.4-6.5); NEUT% 84.5 % (42.2-75.2); PLT 198 X1000 (130-400); RBC 3.61 XMIL (4.7-6.1); RDW 14.1 % (11.5-14.5); WBC 10.16 X1000 (4.8-10.8)
[2019-11-05 07:56] LABS: AGAP 11; ALBUMIN 3.1 g/dL (3.5-5.0); ALKALINE PHOSPHATASE 74 U/L (32-122); BUN 16 mg/dL (8-22); CALCIUM 8.7 mg/dL (8.8-10.2); CHLORIDE 99 mmol/L (98-107); COSMO 282; CREATININE 0.6 mg/dL (0.7-1.2); ESTIMATED GFR > 60; GLUCOSE 155 mg/dL (70-104); GOT 63 U/L (10-34); GPT 45 U/L (10-44); POTASSIUM 3.6 mmol/L (3.5-5.1); SODIUM 139 mmol/L (136-145); TCO2 29 mmol/L (25-35); TOTAL BILIRUBIN 0.62 mg/dL (0.20-1.00); TOTAL PROTEIN 6.1 g/dL (6.3-8.3)
[2019-11-05] MEDS: PULMICORT INH SCH ×2 (08:08→19:35)
[2019-11-05] MEDS: DOXYCYCLINE 100 MG in NS 250 ML IV SCH ×2 (08:24→21:54)
[2019-11-05] MEDS: MERREM 500 MG in NS 50 ML IV SCH ×3 (08:31→17:34)
[2019-11-05] MEDS: DIFLUCAN PO SCH (08:32)
[2019-11-05] MEDS: MYCOSTATIN SUSP PO SCH ×4 (08:32→21:01)
--- NOTE | 2019-11-05 12:21 | PROGRESS NOTE ---
DATE: 11/05/2019 SUBJECTIVE: This patient is still complaining of shortness of breath and left hemithorax pain, he has been coughing up green phlegm with a little bit of blood. He is DNR level 1 and he has been on hospice due to his end-stage chronic obstructive pulmonary disease. OBJECTIVE: Vital Signs: Temperature 98.2 degrees, pulse 94, respiratory rate 18, blood pressure 118/72, oxygen saturation 95% on a Venturi mask. HEENT: Head normocephalic. No trauma. PERRLA. Neck: Supple. No JVD. No masses. Central trachea. Chest: Decreased breath sounds globally with crackles and crepitus bilaterally mostly at the bases. Cardiovascular: Regular rate and rhythm. Abdomen: Soft. Extremities: No clubbing, no cyanosis. Neurological: The patient is awake. He is oriented. He is following commands. His chest is painful to palpation at the level of the left ribcage. LABORATORY: WBC 10.1, hemoglobin 12.6, hematocrit 36.8, platelets 198,000. Sodium 139, potassium 3.6, chloride 99, bicarbonate 29, BUN 16, creatinine 0.6, glucose 155, calcium 8.7, AST 63, ALT 45, alkaline phosphatase 74, albumin 3.1. ASSESSMENT AND PLAN: 1. Acute on chronic hypoxemic respiratory failure. 2. End-stage see chronic obstructive pulmonary disease exacerbation. 3. Bilateral lower lobe infiltrate, likely due to pneumonia. 4. Left hemithorax pain due to trauma. No rib fracture on the x-ray. 5. Pulmonary cachexia. 6. Electrolyte abnormalities, with hypokalemia and borderline low hypomagnesemia, the potassium level looks better. Magnesium level is borderline low again. 7. Transaminitis, this is getting better. 8. Possible alcohol abuse, probably this is the cause of the increased transaminase. 9. Bronchiectasis with possible exacerbation continue bronchodilator therapy, antibiotics and steroids, which I will decrease the dose. It looks like this patient has an end-stage condition/COPD, he has a portable DNR. Palliative Care on board. He has been on hospice prior to the admission and probably he will need to go back home with hospice again. I will wait for the palliative care team to give me instructions about this. cc: Chris Larkin MD
[2019-11-05 14:05] LABS: HEPATITIS PROFILE ACUTE SEE COMMENTS
[2019-11-05] MEDS: LOVENOX SUBQ SCH (17:34)
[2019-11-05] MEDS ORDERED: SOLU-MEDROL IV SCH (18:00)
[2019-11-05] MEDS: TYLENOL PO PRN (21:54)
[2019-11-06] MEDS: MORPHINE IR PO SCH ×3 (02:28→18:27)
[2019-11-06] MEDS: MERREM 500 MG in NS 50 ML IV SCH ×3 (03:01→16:52)
[2019-11-06] MEDS: DUONEB (A & A) INH SCH ×7 (04:04→23:26)
[2019-11-06] MEDS: TYLENOL PO PRN (04:30)
[2019-11-06] MEDS: PULMICORT INH SCH ×3 (06:11→19:48)
--- NOTE | 2019-11-06 07:21 | Diag Imaging Result Doc PS360 ---
CHEST-PORTABLE - 11/06/2019 INDICATION: dyspnea COMPARISON: 11/03/2019 FINDINGS: There is slight worsening in the infiltrate throughout the right midlung and lung base. Otherwise stable extensive coarse peripheral interstitial infiltrates/opacities. Heart size remains top normal. IMPRESSION: Worsening infiltrate in the right midlung and lung base. Superimposed on severe pulmonary fibrosis. Electronically signed by Agusto Mcdowell 11/06/2019 7:19 AM
[2019-11-06 08:16] LABS: AGAP 9; ALB/GLOB RATIO 1.1; ALBUMIN 2.9 g/dL (3.5-5.0); ALKALINE PHOSPHATASE 75 U/L (32-122); BUN 18 mg/dL (8-22); CALCIUM 8.6 mg/dL (8.8-10.2); CHLORIDE 101 mmol/L (98-107); COSMO 279; CREATININE 0.6 mg/dL (0.7-1.2); ESTIMATED GFR > 60; GLUCOSE 120 mg/dL (70-104); GOT 72 U/L (10-34); GPT 54 U/L (10-44); POTASSIUM 3.8 mmol/L (3.5-5.1); SODIUM 138 mmol/L (136-145); TCO2 28 mmol/L (25-35); TOTAL BILIRUBIN 0.64 mg/dL (0.20-1.00); TOTAL PROTEIN 5.6 g/dL (6.3-8.3)
[2019-11-06 08:38] LABS: MAGNESIUM 1.5 mg/dL (1.5-2.7); PHOSPHORUS 3.7 mg/dL (2.7-4.5)
[2019-11-06] MEDS: SOLU-MEDROL IV SCH ×2 (08:42→20:20)
[2019-11-06] MEDS: MYCOSTATIN SUSP PO SCH ×4 (08:42→20:19)
[2019-11-06] MEDS: MORPHINE IV PRN ×2 (08:42→20:42)
[2019-11-06] MEDS: DIFLUCAN PO SCH (08:42)
[2019-11-06] MEDS: DOXYCYCLINE 100 MG in NS 250 ML IV SCH ×2 (10:39→20:20)
--- NOTE | 2019-11-06 15:08 | PROGRESS NOTE ---
DATE: 11/06/2019 SUBJECTIVE: When I examined this patient, he was sleeping on the bed. I woke him up and he was alert and he was following commands, but he was complaining of left hemithorax pain and cough. I will continue with the same management. He is on steroids which I will continue. He is wheezing bilaterally, mostly at the bases. I will continue with antibiotics as well as breathing treatment and oxygen supplementation. It looks like he has end-stage COPD and he has been at home with hospice. OBJECTIVE: Vital Signs: Temperature 97.9 degrees, pulse 101, respiratory rate 15, blood pressure 105/65, oxygen saturation 93 on a Venturi mask. HEENT: Head normocephalic. No trauma. PERRLA. Neck: Supple. No JVD. No masses. Central trachea. Chest: Decreased breath sounds globally with crackles and crepitus bilaterally, mostly at the bases. His chest is painful to palpation at the level of the left rib cage. He does have some wheezing bilaterally. Cardiovascular: RRR. Abdomen: Soft. Extremities: No edema. No clubbing. No cyanosis. Neurological: The patient is awake. He is oriented. He is following commands. He is extremely weak. LABORATORY: Sodium 138, potassium 3.8, chloride 101, bicarbonate 28, BUN 18, creatinine 0.6, glucose 120, calcium 8.6. AST 72, ALT 54, alkaline phosphatase 75, albumin 2.9. ASSESSMENT: 1. Acute on chronic hypoxemic respiratory failure. 2. End-stage chronic obstructive pulmonary disease exacerbation. 3. Bilateral lower lobe infiltrates due to pneumonia. 4. Left hemithorax pain due to trauma, no rib fracture on the x-ray. 5. Pulmonary cachexia. 6. Electrolyte abnormalities. 7. Transaminitis. 8. Possible alcohol abuse. 9. Bronchiectasis with possible exacerbation. PLAN: We will continue with bronchodilator therapy, antibiotics, steroids, and oxygen supplementation. I will start this patient also on CPT to see if that helps a little bit. Overall, his prognosis is poor due to his advanced disease. He has been on hospice prior to the admission and likely he will need to go to a long-term facility and/or home with hospice. cc: Chris Larkin MD
[2019-11-06] MEDS: LOVENOX SUBQ SCH (16:54)
[2019-11-07] MEDS: DUONEB (A & A) INH SCH ×6 (03:40→23:18)
[2019-11-07] MEDS: MORPHINE IR PO SCH ×3 (04:25→18:24)
[2019-11-07] MEDS: MERREM 500 MG in NS 50 ML IV SCH ×4 (08:35→12:45)
[2019-11-07] MEDS: MYCOSTATIN SUSP PO SCH ×4 (08:35→22:16)
[2019-11-07] MEDS: DIFLUCAN PO SCH (08:35)
[2019-11-07] MEDS: SOLU-MEDROL IV SCH ×2 (08:35→12:46)
[2019-11-07 08:37] LABS: AGAP 10; ALB/GLOB RATIO 1.2; ALBUMIN 2.9 g/dL (3.5-5.0); ALKALINE PHOSPHATASE 79 U/L (32-122); BUN 21 mg/dL (8-22); CALCIUM 8.5 mg/dL (8.8-10.2); CHLORIDE 103 mmol/L (98-107); COSMO 289; CREATININE 0.6 mg/dL (0.7-1.2); ESTIMATED GFR > 60; GLUCOSE 148 mg/dL (70-104); GOT 77 U/L (10-34); GPT 61 U/L (10-44); POTASSIUM 3.5 mmol/L (3.5-5.1); SODIUM 142 mmol/L (136-145); TCO2 29 mmol/L (25-35); TOTAL PROTEIN 5.3 g/dL (6.3-8.3)
[2019-11-07] MEDS: PULMICORT INH SCH ×2 (08:52→20:05)
[2019-11-07] MEDS: PREDNISONE PO SCH (12:13)
[2019-11-07] MEDS: DOXYCYCLINE 100 MG in NS 250 ML IV SCH (12:46)
--- NOTE | 2019-11-07 13:12 | PROGRESS NOTE ---
DATE: 11/07/2019 SUBJECTIVE: This patient is resting and sleeping on the bed. He is still complaining of some left hemithorax pain and cough, some shortness of breath. He is no longer using the Ventimask. He is on a non-rebreather mask right now, I will put most of his medications p.o. instead of IV since we have been having problems with the IV line, this patient is DNR level 1. OBJECTIVE: Vital Signs: Temperature 97.7 degrees, pulse 95, respiratory rate 16, blood pressure 105/70, oxygen saturation 100% on a nonrebreathing mask. HEENT: Head normocephalic. No trauma. PERRLA. Neck: Supple. No masses. Central trachea. Chest: Decreased breath sounds globally with crackles and crepitus bilaterally mostly at the bases. Chest pain on the left side, he is still having mild end faint expiratory wheezing. Cardiovascular: Regular rate and rhythm. Abdomen: Soft. Extremities: No clubbing, no cyanosis. Neurological: The patient is sleepy, but arousable. He is oriented. He is following commands, but he is extremely weak. LABORATORY: Sodium 142, potassium 3.5, chloride 103, bicarbonate 29, BUN 21, creatinine 0.6 glucose 148, calcium 8.5. AST 77, ALT 61, alkaline phosphatase 879, albumin 2.9. ASSESSMENT AND PLAN: 1. Acute on chronic hypoxemic respiratory failure. 2. End-stage chronic obstructive pulmonary disease exacerbation. 3. Bilateral lower lobe infiltrates due to pneumonia. 4. Left hemithorax pain due to trauma, no hip numbing, no rib fracture on the x-ray. 5. Pulmonary cachexia. 6. Electrolyte abnormalities. 7. Transaminitis. 8. Possible alcohol abuse. 9. Bronchiectasis with possible exacerbation. The plan is to continue with the same management for now. I do believe he is getting a little bit better, but given his condition of end-stage COPD, this patient is a good candidate for hospice care and actually he has been on hospice prior to coming to the hospital. We are trying to get a long-term facility and/or home with hospice for him, his prognosis is poor due to his advanced disease and poor activity, palliative Care has been trying to contact the family members. cc: Chris Larkin MD
[2019-11-07] MEDS: TYLENOL PO PRN (16:03)
[2019-11-07] MEDS: LOVENOX SUBQ SCH (16:04)
[2019-11-07] MEDS ORDERED: OMNICEF PO SCH (21:00)
[2019-11-07] MEDS: DOXYCYCLINE PO SCH (22:16)
[2019-11-08] MEDS: MORPHINE IR PO SCH ×2 (02:51→10:44)
[2019-11-08] MEDS: DUONEB (A & A) INH SCH ×2 (03:22→08:13)
--- NOTE | 2019-11-08 07:20 | Diag Imaging Result Doc PS360 ---
EXAM: CHEST-PORTABLE HISTORY: Dyspnea,Hypoxia TECHNIQUE: Single view COMPARISON: 11/06/2019 FINDINGS: The lungs are well expanded. There are dense bilateral infiltrates. These are similar to the prior exam. No cardiomegaly. There may be tiny effusions. IMPRESSION: No interval improvement Electronically signed by Juan Alberto Antonio 11/08/2019 7:18 AM
[2019-11-08] MEDS: PULMICORT INH SCH (08:13)
[2019-11-08 08:15] LABS: BASO# 0.04 X1000 (0.0-0.2); BASO% 0.2 % (0.0-0.8); EOS% 0.5 % (0.0-10.0); HEMATOCRIT 39.2 % (42.0-52.0); HEMOGLOBIN 12.6 g/dL (14.0-18.0); IMM GRAN# 0.32 X1000 (0.0-0.04); IMM GRAN% 1.7 % (0.0-0.5); LYMPH# 1.83 X1000 (1.2-3.4); LYMPH% 9.8 % (20.5-51.1); MCH 33.8 PG (27-31); MCHC 32.1 g/dL (33-37); MCV 105.1 FL (81-99); MONO# 1.05 X1000 (0.11-0.59); MONO% 5.6 % (1.7-9.3); MPV 10.7 FL (7.4-10.4); NEUT# 15.42 X1000 (1.4-6.5); NEUT% 82.2 % (42.2-75.2); PLT 173 X1000 (130-400); RBC 3.73 XMIL (4.7-6.1); RDW 14.4 % (11.5-14.5); WBC 18.76 X1000 (4.8-10.8)
[2019-11-08 08:23] LABS: AGAP 7; ALBUMIN 2.8 g/dL (3.5-5.0); ALKALINE PHOSPHATASE 80 U/L (32-122); BUN 14 mg/dL (8-22); CALCIUM 8.4 mg/dL (8.8-10.2); CHLORIDE 100 mmol/L (98-107); COSMO 276; CREATININE 0.5 mg/dL (0.7-1.2); ESTIMATED GFR > 60; GLUCOSE 87 mg/dL (70-104); GOT 80 U/L (10-34); GPT 56 U/L (10-44); MAGNESIUM 1.4 mg/dL (1.5-2.7); PHOSPHORUS 3.2 mg/dL (2.7-4.5); POTASSIUM 3.7 mmol/L (3.5-5.1); SODIUM 138 mmol/L (136-145); TCO2 31 mmol/L (25-35); TOTAL BILIRUBIN 1.18 mg/dL (0.20-1.00); TOTAL PROTEIN 5.7 g/dL (6.3-8.3)
[2019-11-08] MEDS ORDERED: ATIVAN IM ONE (08:37)
[2019-11-08] MEDS ORDERED: MORPHINE IV ONE (09:04)
[2019-11-08] MEDS ORDERED: SOLU-MEDROL IV ONE (09:07)
[2019-11-08] MEDS ORDERED: MAXIPIME 2 GM/NS 2 GM/100 ML IVPB IV SCH (10:00)
[2019-11-08] MEDS: DOXYCYCLINE PO SCH (10:43)
[2019-11-08] MEDS: MYCOSTATIN SUSP PO SCH (10:43)
[2019-11-08] MEDS: DIFLUCAN PO SCH (10:43)
[2019-11-08] MEDS: PREDNISONE PO SCH (10:44)
[2019-11-08] MEDS ORDERED: ATROPINE 1 % OPHTH SOLN SL PRN (10:53)
[2019-11-08] MEDS: DUONEB (A & A) INH PRN ×2 (11:31→15:49)
--- NOTE | 2019-11-08 11:36 | PROGRESS NOTE ---
DATE: 11/08/2019 SUBJECTIVE: This patient is agitated and he has been having more shortness of breath today, we tried to put this patient on the BiPAP machine. Even though he is getting oxygen at 100%, his oxygen saturation has been low mostly in the 80s. Due to agitation, I gave him a low dose of Ativan and I will plan to give him a little bit of morphine, also I will give him a dose of steroids which he has been taking also on a daily basis. I contacted his daughter, Ms. Estrellita Henderson at and I explained to her the situation. She will try to come by and see the patient and probably we need to discuss further treatment either hospice as an inpatient or comfort measures only, OBJECTIVE: Vital signs: Temperature 97.8 degrees pulse 113, respiratory rate 21, blood pressure 113/68, oxygen saturation 97% on a nonrebreathing mask, but that was at 7:47. At this moment, his oxygen saturation dropped to the 80s and he is on the BiPAP machine. HEENT: Head normocephalic. No trauma. PERRLA. Neck is supple. No JVD. No masses. Central trachea. Chest: Decreased breath sounds globally. Prolonged expiratory phase. It looks like he is not moving too much air. Some wheezing at the apex. Abdomen: Soft, nontender, nondistended. No hepatosplenomegaly. Extremities: No edema. No clubbing. No cyanosis, but his feet are cold. Neurological: The patient is agitated. He is not following commands for me at this moment or answering any of my questions. LABORATORY: WBC 18.7, hemoglobin 12.6, hematocrit 39.2, platelets 173,000. Sodium 138, potassium 3.7, chloride 100, bicarbonate 31, BUN 14, creatinine 0.5, glucose 87, calcium 8.4, magnesium 1.4. AST 80, ALT 56, alkaline phosphatase 28. ASSESSMENT AND PLAN: 1. Acute on chronic hypoxemic respiratory failure, this is getting worse and actually he is using the BiPAP machine and the oxygen has been in the 80s. 2. End-stage chronic obstructive pulmonary disease exacerbation, continue with the BiPAP machine. I will give him a high dose of steroids at this moment to see if that can help. Continue with the same management. 3. Bilateral dense pneumonia, multifocal, continue with antibiotics. 4. Left hemithorax pain due to trauma, no fracture on the x-ray. 5. Pulmonary cachexia. 6. Electrolyte abnormalities. 7. Transaminitis. 8. Possible alcohol abuse. 9. Bronchiectasis with possible exacerbation. I just had a conversation with his daughter by phone. She will try to come by to see the patient, he has been at home with hospice. He has an advanced/end-stage COPD, he is a good candidate for hospice either inpatient or outpatient, I do not think he is going to get better. His prognosis is extremely poor. He is remarkably sick. This has been explained to the daughter. cc: Chris Larkin MD
[2019-11-08] MEDS: ATIVAN IV PRN ×4 (11:53→21:38)
[2019-11-08] MEDS: MORPHINE IV PRN ×4 (11:53→21:38)
[2019-11-08] MEDS ORDERED: SOLU-MEDROL IV SCH (14:00)
[2019-11-09] MEDS: MORPHINE IV PRN ×7 (01:14→18:30)
[2019-11-09] MEDS: ATIVAN IV PRN ×8 (01:14→18:30)
--- NOTE | 2019-11-09 13:36 | PROGRESS NOTE ---
DATE: 11/09/2019 SUBJECTIVE: Family members at the bedside, this patient is really short of breath. He seems to be comfortable. I will remove the telemetry, he has been placed on comfort measures only. The BiPAP machine has been removed. OBJECTIVE: Vital Signs: Temperature 97.6 degrees, pulse 98, respiratory rate 25, blood pressure 112/65, oxygen saturation is not documented. HEENT: Head normocephalic. No trauma. PERRLA. Neck: Supple. No JVD. No masses. Central trachea. Chest: Decreased breath sounds globally with prolonged expiratory phase. He is not moving too much air. Some wheezing. Abdomen: Soft, nontender, nondistended. No hepatosplenomegaly. Extremities: No edema. Neurological: This patient is sleepy, slightly lethargic. LABORATORY: No lab work done today. ASSESSMENT AND PLAN: 1. Acute on chronic hypoxemic respiratory failure. 2. End-stage chronic obstructive pulmonary disease exacerbation. 3. Bilateral dense pneumonia, multifocal. 4. Left hemithorax pain due to trauma. 5. Pulmonary cachexia. 6. Electrolyte abnormalities. 7. Transaminitis. 8. Possible alcohol use. 9. Bronchiectasis with possible exacerbation. Patient has been placed on comfort measures only. We will continue with the same management. This patient is do not resuscitate level 1. cc: Chris Larkin MD
[2019-11-09 15:12] VITALS: BP 86/61
--- NOTE | 2019-11-11 07:31 | DISCHARGE SUMMARY ---
ADMISSION DATE: 11/02/2019 DISCHARGE DATE: 11/09/2019 DISCHARGE DIAGNOSES: 1. Acute on chronic hypoxemic respiratory failure. 2. End-stage chronic obstructive pulmonary disease exacerbation. 3. Bilateral pneumonia, multifocal. 4. Left hemithorax pain due to trauma. 5. Pulmonary cachexia. 6. Electrolyte abnormality. 7. Transaminitis. 8. Bronchiectasis with possible exacerbation. 9. Possible alcohol abuse. HOSPITAL COURSE: A 59-year-old, male with a past medical history of end-stage COPD, admitted to the hospital on the of this month and readmitted on 11/02/2019. Prior to this recent admission, he spent 5 to 6 days in the hospital and then he was discharged home. Apparently, he was doing okay but, according to the family, he was having more shortness of breath since he got discharged and since he went home. The night previous to this admission, apparently he fell and hit the left side of his chest and he has been complaining of excruciating pain and more shortness of breath. He was brought to the emergency department. He was found to be remarkably hypoxemic with an oxygen saturation of 64%. It looks like he was in hospice and apparently, as per Mr. Appiah's family, told the admitting physician that he does not have any place to go when he gets discharged and that they preferred if he goes somewhere for hospice care. We started treatment with antibiotics because his x-ray showed bilateral lower lobe infiltrates. He was placed on the floor. He was Do Not Resuscitate. Palliative care was consulted. He basically was declining slowly on a daily basis. We continued with full treatment but a couple days ago, he started needing more oxygen and we placed this patient on the BiPAP machine. We had a meeting with the family and they have decided to keep this patient comfortable so we put this patient on comfort measures only. We will continue with the BiPAP machine and comfort measure medications but then they had decided to stop the machine as well. Yesterday, in the afternoon around 1934, this patient demised. Again, on 11/09/2019 at 1935, this patient demised. Family members at the bedside. Unfortunately, this patient had an end-stage problem. cc: Chris Larkin MD
== END 2019-11-09 19:35 | disposition expired | DRG 189 ==
LOC: SUPCPDRO → ED 11:59 → EDIPHOLD 15:14 → SUATTDRO 15:14 → 2N 18:11 → 3N 11-04 18:27
PROVIDERS: ATTEND Internal Medicine